=== PATIENT | female | born 1940 | race Caucasian/White ===

== ENCOUNTER 2019-01-24 10:01 | Emergency (ER) | payer MEDICARE ==
--- NOTE | 2019-01-24 10:25 | EDM.PDOC ---
ED HPI GENERAL MEDICAL PROBLEM - General Chief Complaint: Headache Stated Complaint: NAUESEA,HEADACH,HIGH B/P Time Seen by Provider: 01/24/19 10:05 Source of Information: Reports: Patient, Other (Information received from [facility] from patient visit to yesterday) History Limitations: Reports: Other (Patient is a somewhat poor historian. This improved significantly after treatment later on in the emergency department stay.) - History of Present Illness INITIAL COMMENTS - FREE TEXT/NARRATIVE: 78-year-old female who reports that she awoke approximately 8 AM today and then beginning at approximately 9 AM she developed a dull headache over her right forehead that was associated with nausea and she had diarrhea 2 at that time. The headache has gradually gotten worse and now is rated by her as a 6/10. She' s had nausea but no vomiting. She's had no fevers or chills. She apparently was seen by her doctor at [facility] in [place] 01/22/2019 for headache and memory problems and was found to have elevated blood pressure was told to take 2 of her blood pressure medications. She has had no localized area weakness. There was no blood in her stool. She initially denied any abdominal pain but with palpation she does have some diffuse abdominal discomfort that seems to be more nausea discomfort with palpation than anything else. Her vision is okay. There are no other associated signs or symptoms. There are no other modifying factors. 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: Reports: Other (see below) (Nothing) Frontal Head Pain Score (Numeric/FACES): 6 - Related Data Allergies Allergy/AdvReac Type Severity Reaction Status Date / Time amitriptyline Allergy Cannot Verified 10/28/14 12:51 Remember codeine Allergy Cannot Verified 10/28/14 12:51 Remember tetracycline Allergy Cannot Verified 10/28/14 15:22 Remember Home Meds: Home Meds metFORMIN [Glucophage] 500 mg PO BID 10/28/14 [History] .Ozempic 01/24/19 [History] Aspirin 81 mg PO DAILY 01/24/19 [History] Benazepril [Lotensin] 40 mg PO DAILY 01/24/19 [History] Cholecalciferol (Vitamin D3) [Vitamin D3] 25 mcg PO DAILY 01/24/19 [History] Citalopram Hydrobromide [Celexa] 40 mg PO DAILY 01/24/19 [History] Clopidogrel Bisulfate [Clopidogrel] 75 mg PO DAILY 01/24/19 [History] Ibandronate Sodium 150 mg PO DAILY 01/24/19 [History] Montelukast Sodium 10 mg PO BEDTIME 01/24/19 [History] Pantoprazole 20 mg PO DAILY 01/24/19 [History] Prochlorperazine Maleate [Compazine] 5 mg PO Q6H PRN #12 tablet 01/24/19 [Rx] atorvaSTATin Calcium [Atorvastatin Calcium] 40 mg PO DAILY 01/24/19 [History] hydroCHLOROthiazide [Hydrochlorothiazide] 50 mg PO DAILY 01/24/19 [History] predniSONE 20 mg PO DAILY 01/24/19 [History] Past Medical History HEENT History: Reports: Impaired Vision Cardiovascular History: Reports: High Cholesterol, Hypertension Gastrointestinal History: Reports: Gastritis, GERD Neurological History: Reports: CVA Endocrine/Metabolic History: Reports: Diabetes, Type II - Past Surgical History Head Surgeries/Procedures: Reports: Other (See Below) (Temporal artery biopsy on right that was negative.) Cardiovascular Surgical History: Reports: Other (See Below) (Cardiac catheterization that was apparently negative.) Social & Family History - Tobacco Use Smoking Status *Q: Never Smoker - Alcohol Use Alcohol Use History: No - Living Situation & Occupation Living situation: Reports: Alone Occupation: Retired ED ROS GENERAL - Review of Systems Review Of Systems: See Below Constitutional: Reports: Malaise HEENT: Reports: No Symptoms Respiratory: Reports: No Symptoms Cardiovascular: Reports: No Symptoms Endocrine: Reports: No Symptoms GI/Abdominal: Reports: Abdominal Pain, Diarrhea, Nausea : Reports: No Symptoms Musculoskeletal: Reports: No Symptoms Skin: Reports: No Symptoms Neurological: Reports: Headache Hematologic/Lymphatic: Reports: No Symptoms Immunologic: Reports: No Symptoms ED EXAM, GENERAL - Physical Exam Exam: See Below Exam Limited By: No Limitations General Appearance: Alert, Moderate Distress, Obese Eye Exam: Bilateral Eye: EOMI, Normal Inspection, PERRL Ears: Normal External Exam Ear Exam: Bilateral Ear: Auricle Normal Nose: Normal Inspection, Normal Mucosa, No Blood Throat/Mouth: Normal Voice, No Airway Compromise, Other (Somewhat dry mucous membranes) Head: Atraumatic, Normocephalic Neck: Normal Inspection, Supple, Non-Tender, Full Range of Motion Respiratory/Chest: No Respiratory Distress, Lungs Clear, Normal Breath Sounds, No Accessory Muscle Use, Chest Non-Tender Cardiovascular: Normal Peripheral Pulses, Regular Rate, Rhythm, No Murmur Peripheral Pulses: 2+: Radial (L), Radial (R) GI/Abdominal: Normal Bowel Sounds, Soft, No Mass, Tender (Mild diffuse tenderness) Back Exam: Normal Inspection Extremities: Normal Inspection, Normal Range of Motion, Non-Tender, No Pedal Edema, Normal Capillary Refill Neurological: Alert, Oriented, CN II-XII Intact, No Motor/Sensory Deficits Skin Exam: Warm, Dry, Intact, Normal Color, No Rash Course - Vital Signs Last Recorded V/S: Last Vital Signs Temp 36.8 C 01/24/19 10:01 Pulse 67 01/24/19 11:13 Resp 18 01/24/19 11:13 BP 129/62 01/24/19 11:13 Pulse Ox 99 01/24/19 11:13 - Orders/Labs/Meds Orders: Active Orders 24 hr Category Date Time Status Sodium Chloride 0.9% [Saline Flush] Med 01/24/19 10:26 Active 10 ml FLUSH ASDIRECTED PRN Peripheral IV Insertion Adult [OM.PC] Routine Oth 01/24/19 10:26 Ordered Medication Orders Sodium Chloride (Saline Flush) 10 ml FLUSH ASDIRECTED PRN PRN Reason: Keep Vein Open Last Admin: 01/24/19 12:53 Dose: 10 ml Admin: 01/24/19 10:51 Dose: 10 ml Labs: Laboratory Tests 01/24/19 01/24/19 01/24/19 Range/Units 10:40 10:40 10:40 WBC 8.2 (4.5-12.0) X10-3/uL RBC 4.44 (3.23-5.20) x10(6)uL Hgb 12.6 (11.5-15.5) g/dL Hct 36.7 (30.0-51.3) % MCV 82.6 (80-96) fL MCH 28.3 (27.7-33.6) pg MCHC 34.3 (32.2-35.4) g/dL RDW 12.3 (11.5-15.5) % Plt Count 204 (125-369) X10(3)uL MPV 9.4 (7.4-10.4) fL Neut % (Auto) 76.7 (46-82) % Lymph % (Auto) 15.3 (13-37) % [place] % (Auto) 5.5 (4-12) % Eos % (Auto) 2 (1.0-5.0) % Baso % (Auto) 0 (0-2) % Neut # (Auto) 6.2 (1.6-8.3) # Lymph # (Auto) 1.3 (0.6-5.0) # Liberty # (Auto) 0.5 (0.0-1.3) # Eos # (Auto) 0.2 (0.0-0.8) # Baso # (Auto) 0.0 (0.0-0.2) # ESR 11 (0-20) mm/hr Sodium 136 (135-145) mmol/L Potassium 3.5 (3.5-5.3) mmol/L Chloride 99 L (100-110) mmol/L Carbon Dioxide 25 (21-32) mmol/L BUN 12 (7-18) mg/dL Creatinine 1.0 (0.55-1.02) mg/dL Est Cr Clr Drug Dosing 36.98 mL/min Estimated GFR (MDRD) 54 L (>60) BUN/Creatinine Ratio 12.0 (9-20) Glucose 156 H (80-116) mg/dL Calcium 9.1 (8.6-10.2) mg/dL Magnesium 1.5 L (1.8-2.5) mg/dL Total Bilirubin 0.4 (0.1-1.3) mg/dL AST 25 (5-25) IU/L ALT 37 H (12-36) U/L Alkaline Phosphatase 108 (56-112) IU/L C-Reactive Protein < 0.2 L (0.5-0.9) mg/dL Total Protein 7.0 (6.0-8.0) g/dL Albumin 3.6 (3.2-4.6) g/dL Globulin 3.4 g/dL Albumin/Globulin Ratio 1.1 Amylase 61 (25-115) U/L Urine Color (YELLOW) Urine Appearance (CLEAR) Urine pH (5.0-6.5) Ur Specific [place] (1.010-1.025) Urine Protein (NEGATIVE) mg/dL Urine Glucose (UA) (NORMAL) mg/dL Urine Ketones (NEGATIVE) mg/dL Urine Occult Blood (NEGATIVE) Urine Nitrite (NEGATIVE) Urine Bilirubin (NEGATIVE) Urine Urobilinogen (NEGATIVE) mg/dL Ur Leukocyte Esterase (NEGATIVE) Urine RBC (0-5) Urine WBC (0-5) Ur Epithelial Cells Urine Bacteria (NS) 01/24/19 Range/Units 12:45 WBC (4.5-12.0) X10-3/uL RBC (3.23-5.20) x10(6)uL Hgb (11.5-15.5) g/dL Hct (30.0-51.3) % MCV (80-96) fL MCH (27.7-33.6) pg MCHC (32.2-35.4) g/dL RDW (11.5-15.5) % Plt Count (125-369) X10(3)uL MPV (7.4-10.4) fL Neut % (Auto) (46-82) % Lymph % (Auto) (13-37) % [place] % (Auto) (4-12) % Eos % (Auto) (1.0-5.0) % Baso % (Auto) (0-2) % Neut # (Auto) (1.6-8.3) # Lymph # (Auto) (0.6-5.0) # [place] # (Auto) (0.0-1.3) # Eos # (Auto) (0.0-0.8) # Baso # (Auto) (0.0-0.2) # ESR (0-20) mm/hr Sodium (135-145) mmol/L Potassium (3.5-5.3) mmol/L Chloride (100-110) mmol/L Carbon Dioxide (21-32) mmol/L BUN (7-18) mg/dL Creatinine (0.55-1.02) mg/dL Est Cr Clr Drug Dosing mL/min Estimated GFR (MDRD) (>60) BUN/Creatinine Ratio (9-20) Glucose (80-116) mg/dL Calcium (8.6-10.2) mg/dL Magnesium (1.8-2.5) mg/dL Total Bilirubin (0.1-1.3) mg/dL AST (5-25) IU/L ALT (12-36) U/L Alkaline Phosphatase (56-112) IU/L C-Reactive Protein (0.5-0.9) mg/dL Total Protein (6.0-8.0) g/dL Albumin (3.2-4.6) g/dL Globulin g/dL Albumin/Globulin Ratio Amylase (25-115) U/L Urine Color Yellow (YELLOW) Urine Appearance Clear (CLEAR) Urine pH 6.0 (5.0-6.5) Ur Specific [place] 1.020 (1.010-1.025) Urine Protein 30 H (NEGATIVE) mg/dL Urine Glucose (UA) Normal (NORMAL) mg/dL Urine Ketones Trace (NEGATIVE) mg/dL Urine Occult Blood Small (NEGATIVE) Urine Nitrite Negative (NEGATIVE) Urine Bilirubin Negative (NEGATIVE) Urine Urobilinogen 0.2 (NEGATIVE) mg/dL Ur Leukocyte Esterase Negative (NEGATIVE) Urine RBC Not seen (0-5) Urine WBC 0-5 (0-5) Ur Epithelial Cells Rare Urine Bacteria Rare H (NS) Meds: Medications Generic Name Dose Route Start Last Admin Trade Name Frejulianne PRN Reason Stop Dose Admin Sodium Chloride 10 ml 01/24/19 10:26 01/24/19 12:53 Saline Flush FLUSH 10 ml ASDIRECTED PRN Administration Keep Vein Open Discontinued Medications Generic Name Dose Route Start Last Admin Trade Name Lashonda PRN Reason Stop Dose Admin Sodium Chloride 1,000 mls @ 999 mls/hr 01/24/19 10:28 01/24/19 10:50 Normal Saline IV 01/24/19 11:28 999 mls/hr .BOLUS ONE Administration Magnesium Sulfate 2 gm/ Premix 50 mls @ 150 mls/hr 01/24/19 11:40 01/24/19 12 :05 IV 01/24/19 11:59 55 mls/hr ONETIME ONE Infusion Ketorolac Tromethamine 30 mg 01/24/19 11:22 01/24/19 11:28 Toradol IVPUSH 01/24/19 11:23 30 mg ONETIME ONE Administration Metoclopramide HCl 10 mg 01/24/19 10:28 01/24/19 10:50 Reglan IVPUSH 01/24/19 10:29 10 mg ONETIME ONE Administration - Radiology Interpretation Free Text/Narrative:: CT scan of head without contrast showed white matter changes that were chronic but no acute pathology per Dr. Greenwood. - Re-Assessments/Exams Free Text/Narrative Re-Assessment/Exam: 01/24/19 12:15: The patient has received normal saline 1 L as a bolus. She also received Reglan 10 mg IV and initially. She was feeling improved after this with resolution of her nausea but still had headache. The CT scan of her head showed no acute abnormality at this point the patient was given Toradol 30 mg IV. Now her headache is essentially gone and she feels much improved. Her blood tests were reassuringly normal. The CT of her head showed no acute abnormality. I will discuss the patient's case with her primary provider, Dr. Sweet, as she saw the patient on 01/22/2019. 01/24/19 13:00: I discussed the patient's case with Dr. Sweet. Dr. Sweet has arranged for the patient to follow-up with neuropsychology and neurology and has an MRI of the patient's brain. The patient is neurologically and vitally stable at this point. Her repeat blood pressure was 129/62. Her symptoms have essentially resolved. She has provided us with a urine and I am waiting on the results of this. Plan will be to discharge the patient with her current workup/ follow-up as scheduled per her primary provider. 01/24/19 13:34: Urinalysis was negative. Her magnesium was low and we did replace that with 2 g IV. The patient feels much improved and is felt to be stable for discharge at this point. Her primary doctor is going to try to facilitate the patient's follow-up appointments with ophthalmology, neuropsychiatry, neurology and for her MRI. She will also have the patient scheduled for follow-up with her, Dr. Sweet, in 1-2 weeks. Departure - Departure Time of Disposition: 13:40 Disposition: Home, Self-Care 01 Condition: Good (Improved) Clinical Impression: Nausea, Hypomagnesemia Headache Qualifiers: Headache type: other headache syndrome Qualified Code(s): G44.89 - Other headache syndrome - Discharge Information Prescriptions: Prochlorperazine Maleate [Compazine] 5 mg PO Q6H PRN #12 tablet PRN Reason: Nausea or headache Instructions: Hypomagnesemia, Nausea, Adult, [id number], General Headache Without Cause, [id number] Referrals: PCP,Not In Area [Primary Care Provider] - Forms: ED Department Discharge Additional Instructions: Your blood tests were reassuringly normal. The CT scan of your head showed no acute abnormality. You improved significantly with IV fluids and nausea medicine with pain medication. This could have been a migraine headache. It could also be related to your recent memory issues. I discussed your case with your primary doctor and she has referred you to several specialist. She is going to facilitate the appointments to see the specialist and also to make sure that the MRI of your brain has been scheduled as well. You should call her office to try to make sure all these appointments are arranged and to get the times of these appointments. You should rest. You should drink plenty of fluids. Medication as prescribed (Compazine 5 mg). You may take this medication for nausea and also for recurrent headaches. Back to the emergency department for recurrent severe headache, vomiting, further memory lapses or confusion, fever or any other concerning sign or symptom. - My Orders Last 24 Hours: My Active Orders 01/24/19 10:26 Sodium Chloride 0.9% [Saline Flush] 10 ml FLUSH ASDIRECTED PRN Peripheral IV Insertion Adult [OM.PC] Routine - Assessment/Plan Last 24 Hours: My Active Orders 01/24/19 10:26 Sodium Chloride 0.9% [Saline Flush] 10 ml FLUSH ASDIRECTED PRN Peripheral IV Insertion Adult [OM.PC] Routine
[2019-01-24] MEDS ORDERED: Metoclopramide 10 MG/2 ML SDV IVPUSH ONE (10:28)
[2019-01-24] MEDS ORDERED: Sodium Chloride 0.9% 1,000 ML IV ONE (10:28)
[2019-01-24] MEDS: Sodium Chloride 0.9% 10 ML Syringe FLUSH PRN ×2 (10:51→12:53)
[2019-01-24] MEDS ORDERED: Ketorolac 30 MG/ML SDV IVPUSH ONE (11:22)
[2019-01-24] MEDS ORDERED: Magnesium Sulfate/Water 2 GM in Premix Bag 1 BAG IV ONE (11:40)
--- NOTE | 2019-01-24 11:42 | CT ---
INDICATION: Patient complains of frontal headaches, severe times two hours. CT HEAD WITHOUT CONTRAST: Spiral 3.75 mm axial sections were obtained through the brain without contrast with sagittal and coronal reconstructions, 01/24/19, and compared with 10/28/14. Total exam DLP = 1,141.91 mGy-cm. Arterial calcifications are noted in the internal carotid arteries and especially the vertebral arteries. There appears to be increased patchy decreased density in the white matter, compatible with mild microvascular disease that is progressive. No shift of midline structures or ventricular abnormalities were identified. No lacunar infarct is seen on the current study. No bleeding site or hematoma was noted. Orbits appear to be intact. Visualized paranasal sinuses and mastoid air cells were well-aerated. No cranial abnormality was suggested. IMPRESSION: 1. No acute intracranial abnormality. 2. Cerebrovascular disease with minimal microvascular disease type changes in the white matter, although other cause of leukoencephalopathy cannot be excluded. If symptoms persist - if occult abnormality is suspected clinically, re- examination with IV contrast by CT and/or MRI is recommended. Report was called to Dr. Hammond at 1118 hours on 01/24/19. MIKE
[2019-01-24 12:05] VITALS: BP 129/62; PULSE 67
== END 2019-01-24 13:50 | disposition home or self-care (01) ==
LOC: FB.ED 10:01
DX: G44.89 Other headache syndrome (principal); E83.42 Hypomagnesemia; I10 Essential (primary) hypertension; E11.9 Type 2 diabetes mellitus without complications; K21.9 Gastro-esophageal reflux disease without esophagitis; E78.00 Pure hypercholesterolemia, unspecified; Z86.73 Personal history of transient ischemic attack (TIA), and cerebral infarction without residual deficits; Z88.5 Allergy status to narcotic agent; Z88.8 Allergy status to other drugs, medicaments and biological substances; Z88.1 Allergy status to other antibiotic agents; Z79.82 Long term (current) use of aspirin; Z79.899 Other long term (current) drug therapy; Z79.84 Long term (current) use of oral hypoglycemic drugs
CPT/HCPCS: 36415; 70450; 80053; 81001; 82150; 83735; 85025; 85651; 86140; 96361; 96365; 96375; 99284; J1885; J2765; J3475; J7030

== ENCOUNTER 2019-03-05 08:47 | Inpatient (IN) | payer MEDICARE ==
[2019-03-05] MEDS ORDERED: Enoxaparin 40 MG/0.4 ML Syringe SUBCUT SCH (13:30)
[2019-03-05] MEDS: oxyCODONE 5 MG Tab PO PRN ×2 (14:15→21:57)
[2019-03-05] MEDS: Acetaminophen 500 MG Tab PO SCH ×2 (15:10→20:49)
--- NOTE | 2019-03-05 15:27 | PCM.HP.2 ---
H&P History of Present Illness - General Date of Service: 03/05/19 Admit Problem/Dx: Admission Diagnosis/Problem Admission Diagnosis/Problem Rehabilitation therapy Source of Information: Patient, Old Records, Provider - History of Present Illness Initial Comments - Free Text/Narative: Patient sustained a fall at home last Sunday had right humeral and hip fractures. Was sent to [facility], had a hemiarthroplasty on the right hip but they did non-operative treatment for her right humeral fracture. She was placed in a sling, non-weightbearing on right arm. She is weight bearing on her legs. She is POD#5, hemoglobin was 8.8 this morning in [place]. She had post-op complication of acute blood loss anemia, dropped to 6.9, received 2 units of PRBCs and has been stable in high 8/low 9 since transfusion. She will be on Lovenox 40 mg q24h for 4 weeks postoperative for DVT prophylaxis with bilateral knee high TEDs. Neurology was consulted during her acute stay in [place] due to her history of stroke 4 years ago and was on Aspirin and Plavix for it. Neurology recommended stopping Plavix and restarting her Aspirin 325 mg daily on SundayMar 10. She is on acetaminophen and Oxycodone for pain. MiraLAX for bowel regiment. She had low blood pressure and hyponatremia in [place], hypertension medications(ACEI & HCTZ) were held and were restarted today as her pressures came up to 160s. She had her dressing changed in [place] with Mepilex dressing left on for 7 days then change to dry dressings. She follows up with Ortho on Mar 26 at 1030am. Follow up with her PCP Dr Mckay at [facility] on Mar 19 at 230 pm. She has lab/rad only appts on Mar 14 at 1 & 130 pm at [facility] clinic. She is Diabetic type 2 on oral medications, also Lactose intolerant. - Related Data Allergies/Adverse Reactions: Allergies Allergy/AdvReac Type Severity Reaction Status Date / Time amitriptyline Allergy Cannot Verified 03/05/19 15:30 Remember codeine Allergy Cannot Verified 03/05/19 15:30 Remember tetracycline Allergy Cannot Verified 03/05/19 15:30 Remember Home Medications: Home Meds metFORMIN [Glucophage] 500 mg PO BIDMEALS 10/28/14 [History] .Ozempic 0.5 mg SUBCUT [place]@21 01/24/19 [History] Benazepril [Lotensin] 40 mg PO DAILY 01/24/19 [History] Cholecalciferol (Vitamin D3) [Vitamin D3] 25 mcg PO DAILY 01/24/19 [History] Citalopram Hydrobromide [Celexa] 40 mg PO BEDTIME 01/24/19 [History] Ibandronate Sodium 150 mg PO Q30D 01/24/19 [History] Montelukast Sodium 10 mg PO BEDTIME 01/24/19 [History] Pantoprazole 20 mg PO DAILY 01/24/19 [History] atorvaSTATin Calcium [Atorvastatin Calcium] 40 mg PO DAILY 01/24/19 [History] hydroCHLOROthiazide [Hydrochlorothiazide] 50 mg PO DAILY 01/24/19 [History] Acetaminophen 325 mg PO Q6H PRN 03/05/19 [History] Acetaminophen 500 mg PO TID 03/05/19 [History] Ascorbate Calcium [Vitamin C] 1,000 mg PO DAILY 03/05/19 [History] Aspirin [Aspirin EC] 325 mg PO DAILY 03/05/19 [History] Calcium Carbonate [Calcium] 500 mg PO TID 03/05/19 [History] Desonide 1 applic TOP BID 03/05/19 [History] Enoxaparin [Lovenox] 40 mg SUBCUT Q24H 03/05/19 [History] Hydrocortisone [Hydrocortisone 2.5% Crm] 1 applic TOP BID 03/05/19 [History] Magnesium Oxide 400 mg PO BIDMEALS 03/05/19 [History] Multivitamins,Therapeutic [Thera] 1 tab PO DAILY 03/05/19 [History] Polyethylene Glycol 3350 [MiraLAX] 17 gm PO DAILY 03/05/19 [History] Triamcinolone Acetonide [Nasacort] 2 sprays NASBOTH DAILY 03/05/19 [History] Zinc Gluconate [Zinc] 50 mg PO DAILY 03/05/19 [History] buPROPion [buPROPion XL] 150 mg PO DAILY 03/05/19 [History] oxyCODONE 5 mg PO Q8H PRN 03/05/19 [History] Past Medical History HEENT History: Reports: Impaired Vision Cardiovascular History: Reports: High Cholesterol, Hypertension, SOB on Exertion Respiratory History: Reports: SOB Gastrointestinal History: Reports: Gastritis, GERD, Other (See Below) Other Gastrointestinal History: Lactose intolerant FISHER TERRAPIN History: Reports: Musculoskeletal History: Reports: Back Pain, Chronic, Fracture Neurological History: Reports: CVA Psychiatric History: Reports: Anxiety, Depression, Other (See Below) Other Psychiatric History: MENTAL HEALTH ISSUES. Endocrine/Metabolic History: Reports: Diabetes, Type II Hematologic History: Reports: Blood Transfusion(s) Dermatologic History: Reports: Other (See Below) Other Dermatologic History: RASH AND C\O OF SOME ITCHING AT TIMES WITH A RASH. - Infectious Disease History Infectious Disease History: Reports: Chicken Pox, Shingles - Past Surgical History Head Surgeries/Procedures: Reports: Other (See Below) HEENT Surgical History: Reports: None Cardiovascular Surgical History: Reports: None Respiratory Surgical History: Reports: None GI Surgical History: Reports: Colonoscopy Endocrine Surgical History: Reports: None Neurological Surgical History: Reports: Other (See Below) Other Neurological Surgeries/Procedures: PT HAD SURGERY ON RIGHT SIDE OF FACE IN FRONT OF HER EAR IN PAST. Musculoskeletal Surgical History: Reports: Hip Replacement, Other (See Below) Other Musculoskeletal Surgeries/Procedures:: FRACTURED HUMERUS CURRENTLY AND S\ P RIGHT HIP REPLACEMENT ON 02/28/2019 ON HIP Dermatological Surgical History: Reports: None - Past Imaging History Past Imaging History: Reports: Cardiac Echo (10/04/2018) Social & Family History - Family History Family Medical History: Noncontributory Cardiac: Reports: CAD (mom, brothers x 3), RI (Mom, Maternal grandfather) Other OBGYN Family History: Breast cancer: Paternal aunt Neurological: Reports: CVA (dad, mom) Psychiatric: Reports: Other (See Below) (Addictions: daughter, son) - Tobacco Use Smoking Status *Q: Former Smoker - Caffeine Use Caffeine Use: Reports: None - Alcohol Use Alcohol Use History: No - Recreational Drug Use Recreational Drug Use: No - Living Situation & Occupation Living situation: Reports: Alone Occupation: Retired H&P Review of Systems - Review of Systems: Review Of Systems: See Below General: Reports: No Symptoms HEENT: Reports: No Symptoms Pulmonary: Reports: No Symptoms Cardiovascular: Reports: No Symptoms Gastrointestinal: Reports: No Symptoms Genitourinary: Reports: No Symptoms Musculoskeletal: Reports: Shoulder Pain, Leg Pain Skin: Reports: Bruising (left arm, right shoulder covered with ice pack, in sling), Wound (right hip) Psychiatric: Reports: No Symptoms Neurological: Reports: No Symptoms Hematologic/Lymphatic: Reports: Anemia Exam - Exam Exam: See Below - Vital Signs Weight: 69.173 kg - Exam General: Alert, Oriented, Cooperative, Mild Distress (pain) HEENT: PERRLA, Hearing Intact, Mucosa Moist & [place], Nares Patent, Normal Nasal Septum, Posterior Pharynx Clear, Conjunctiva Clear, EOMI, EACs Clear, TMs Clear Neck: Supple, Trachea Midline, 2 Lungs: Clear to Auscultation, Normal Respiratory Effort Cardiovascular: Regular Rate, Regular Rhythm GI/Abdominal Exam: Normal Bowel Sounds, Soft, Non-Tender, No Distention Extremities: No Pedal Edema Peripheral Pulses: 2+: Radial (L), Radial (R), Posterior Tibial (L), Posterior Tibial (R), Dorsalis Pedis (L), Dorsalis Pedis (R) Skin: Warm, Dry, Wound (right hip covered by Mepilex dressing) Psychiatric: Alert, Normal Affect, Normal Mood - Problem List (1) Right humeral fracture SNOMED Code(s): 01209635 ICD Code: S42.301A - UNSP FRACTURE OF SHAFT OF HUMERUS, RIGHT ARM, INIT Status: Acute Current Visit: Yes (2) S/P hip hemiarthroplasty SNOMED Code(s): 269303296, 777476612, 675485789, 983202390 ICD Code: Z96.649 - PRESENCE OF UNSPECIFIED ARTIFICIAL HIP JOINT Status: Acute Current Visit: Yes Onset Date: ~02/28/19 (3) Hip fracture, right SNOMED Code(s): 870812303 ICD Code: S72.001A - FRACTURE OF UNSP PART OF NECK OF RIGHT FEMUR, INIT Status: Acute Current Visit: Yes (4) Hypertension SNOMED Code(s): 57477179 ICD Code: I10 - ESSENTIAL (PRIMARY) HYPERTENSION Status: Acute Current Visit: Yes Qualifiers: Hypertension type: essential hypertension Qualified Code(s): I10 - Essential (primary) hypertension (5) GERD (gastroesophageal reflux disease) SNOMED Code(s): 046817293 ICD Code: K21.9 - GASTRO-ESOPHAGEAL REFLUX DISEASE WITHOUT ESOPHAGITIS Status: Acute Current Visit: Yes Qualifiers: Esophagitis presence: esophagitis presence not specified Qualified Code(s) : K21.9 - Gastro-esophageal reflux disease without esophagitis (6) Diabetes SNOMED Code(s): 75714110 ICD Code: E11.9 - TYPE 2 DIABETES MELLITUS WITHOUT COMPLICATIONS Status: Acute Current Visit: Yes Qualifiers: Diabetes mellitus type: type 2 Diabetes mellitus terminal press operator insulin use: without halfway use Diabetes mellitus complication status: without complication Qualified Code(s): E11.9 - Type 2 diabetes mellitus without complications (7) History of CVA (cerebrovascular accident) SNOMED Code(s): 214350773 ICD Code: Z86.73 - PRSNL HX OF TIA (TIA), AND CEREB INFRC W/O RESID DEFICITS Status: Acute Current Visit: Yes Onset Date: Problem List Initiated/Reviewed/Updated: Yes Orders Last 24hrs: Active Orders 24 hr Category Date Time Status Patient Status [ADT] Routine ADT 03/05/19 13:29 Active Antiembolic Devices [RC] .Routine Care 03/05/19 13:29 Active Blood Glucose Check, Bedside [RC] BIDMEALS Care 03/05/19 13:29 Active Communication Order [RC] ASDIRECTED Care 03/05/19 13:46 Active Height and Weight [RC] WE Care 03/05/19 13:29 Active Oxygen Therapy [RC] PRN Care 03/05/19 13:29 Active Up With Assistance [RC] ASDIRECTED Care 03/05/19 13:29 Active VTE/DVT Education [RC] Per Unit Routine Care 03/05/19 13:29 Active Vital Signs [RC] PER UNIT ROUTINE Care 03/05/19 13:29 Active Wound Care [RC] DAILY Care 03/05/19 13:34 Active Consult to Case Management/Senior Technical Specialist [CONS] Cons 03/05/19 13:40 Active Routine OT Evaluation and Treatment [CONS] Routine Cons 03/05/19 13:29 Active PT Evaluation and Treatment [CONS] Routine Cons 03/05/19 13:29 Active Consistent Carbohydrate Diet [DIET] Diet 03/05/19 Lunch Active .Ozempic Med 03/09/19 21:00 Pending 0.5 mg SUBCUT [place]@2100 Acetaminophen [Tylenol Extra Strength] Med 03/05/19 14:00 Active 500 mg PO TID Acetaminophen [Tylenol] Med 03/05/19 13:36 Active 325 mg PO Q6H PRN Ascorbic Acid [Vitamin C] Med 03/06/19 09:00 Active 1,000 mg PO DAILY Aspirin [Ecotrin] Med 03/10/19 09:00 Active 325 mg PO DAILY Benazepril [Lotensin] Med 03/06/19 09:00 Active 40 mg PO DAILY Cholecalciferol (Vitamin D3) [Vitamin D3] Med 03/06/19 09:00 Active 25 mcg PO DAILY Citalopram [Celexa] Med 03/05/19 21:00 Active 40 mg PO BEDTIME Desonide Med 03/05/19 21:00 Active 0 gm TOP BID Enoxaparin [Lovenox] Med 03/05/19 16:00 Active 40 mg SUBCUT Q24H Fluticasone Propionate [Flonase] Med 03/06/19 09:00 Active 0 gm NASBOTH DAILY Hydrocortisone [Hydrocortisone 2.5% Crm] Med 03/05/19 21:00 Active 0 gm TOP BID Ibandronate [Boniva] Med 03/18/19 06:00 Active 150 mg PO Q30D Magnesium Oxide Med 03/05/19 18:00 Active 400 mg PO BIDMEALS Montelukast [Singulair] Med 03/05/19 21:00 Active 10 mg PO BEDTIME Multivitamins,Therapeutic [Thera] Med 03/06/19 09:00 Active 1 each PO DAILY Pantoprazole Med 03/06/19 06:00 Active 20 mg PO 0600 Polyethylene Glycol 3350 [MiraLAX] Med 03/06/19 09:00 Active 17 gm PO DAILY Zinc Sulfate [Zincate] Med 03/06/19 09:00 Active 220 mg PO DAILY atorvaSTATin [Lipitor] Med 03/06/19 09:00 Active 40 mg PO DAILY buPROPion [Wellbutrin XL] Med 03/06/19 09:00 Active 150 mg PO DAILY hydroCHLOROthiazide Med 03/06/19 09:00 Active 50 mg PO DAILY metFORMIN [Glucophage] Med 03/05/19 18:00 Active 500 mg PO BIDMEALS oxyCODONE Med 03/05/19 13:36 Active 5 mg PO Q8H PRN Antiembolic Hose [OM.PC] Per Unit Routine Oth 03/05/19 13:31 Ordered Resuscitation Status Routine Resus Stat 03/05/19 13:29 Ordered Medication Orders Acetaminophen (Tylenol) 325 mg PO Q6H PRN PRN Reason: Pain/Fever Acetaminophen (Tylenol Extra Strength) 500 mg PO TID [facility] Last Admin: 03/05/19 15:10 Dose: 500 mg Ascorbic Acid (Vitamin C) 1,000 mg PO DAILY [facility] Aspirin (Ecotrin) 325 mg PO DAILY [facility] Atorvastatin Calcium (Lipitor) 40 mg PO DAILY [facility] Benazepril HCl (Lotensin) 40 mg PO DAILY [facility] Bupropion HCl (Wellbutrin Xl) 150 mg PO DAILY [facility] Cholecalciferol (Vitamin D3) 25 mcg PO DAILY [facility] Citalopram Hydrobromide (Celexa) 40 mg PO BEDTIME [facility] Desonide (Desonide) 0 gm TOP BID [facility] Enoxaparin Sodium (Lovenox) 40 mg SUBCUT Q24H [facility] Fluticasone Propionate (Flonase) 0 gm NASBOTH DAILY [facility] Hydrochlorothiazide (Hydrochlorothiazide) 50 mg PO DAILY [facility] Hydrocortisone (Hydrocortisone 2.5% Crm) 0 gm TOP BID [facility] Ibandronate Sodium (Boniva) 150 mg PO Q30D [facility] Magnesium Oxide (Magnesium Oxide) 400 mg PO BIDMEALS [facility] Metformin HCl (Glucophage) 500 mg PO BIDMEALS [facility] Montelukast Sodium (Singulair) 10 mg PO BEDTIME [facility] Multivitamins (Thera) 1 each PO DAILY [facility] Non-Formulary Medication (.Ozempic) 0.5 mg SUBCUT [place]@2100 [facility] Oxycodone HCl (Oxycodone) 5 mg PO Q8H PRN PRN Reason: Pain Last Admin: 03/05/19 14:15 Dose: 5 mg Pantoprazole Sodium (Pantoprazole) 20 mg PO 0600 [facility] Polyethylene Glycol (Miralax) 17 gm PO DAILY [facility] Zinc Sulfate (Zincate) 220 mg PO DAILY [facility] Assessment/Plan Comment:: 1. Admit to Swing Bed for rehab services: PT/OT consulted. 2. POD#5 from right hemiarthroplasty: weightbearing, Mepilex dressing changed today, change in 7 days with dry dressings. 3. Right humeral fracture: sling, non-weightbearing, Repeat x-ray in 3 weeks Mar 26 at 1030am in [place]. 4. DVT prophylaxis: Lovenox 40 mg SQ q24h for 4 weeks. Restart Aspirin 325 mg on SundayMar 10 per Neurology. 5. Consistent carb diet, BID glucose checks. 6. Hypertension: meds restarted today, monitor for hyponatremia and adjust as needed. 7. Pain control: acetaminophen 650 mg po q4h as needed and Oxycodone 5 mg po q8h as needed 8. Upcoming appointment: lab/rad only Mar 14 at 1 & 130 pm, Dr Mckay Mar 19 at 230pm, MELANIE Bartholomew on Mar 26 at 1030am. - Mortality Measure Prognosis:: Good
[2019-03-05] MEDS: Enoxaparin 40 MG/0.4 ML Syringe SUBCUT SCH (16:11)
[2019-03-05] MEDS: Magnesium Oxide 400 MG Tab PO SCH (17:10)
[2019-03-05] MEDS: metFORMIN 500 MG Tab PO SCH (17:10)
[2019-03-05] MEDS: Calcium Carbonate 500 MG Tablet PO SCH (17:42)
[2019-03-05] MEDS: Citalopram 20 MG Tab PO SCH (20:49)
[2019-03-05] MEDS: Montelukast 10 MG Tab PO SCH (20:50)
[2019-03-05] MEDS: Hydrocortisone 2.5% Crm 30 GM Tube TOP SCH (20:56)
[2019-03-06] MEDS: Acetaminophen 325 MG Tab PO PRN ×2 (00:47→08:59)
[2019-03-06] MEDS: Pantoprazole 20 MG Tab, Delayed Release PO SCH (06:35)
[2019-03-06] MEDS: oxyCODONE 5 MG Tab PO PRN ×3 (06:35→18:23)
[2019-03-06] MEDS: Magnesium Oxide 400 MG Tab PO SCH ×2 (08:39→17:38)
[2019-03-06] MEDS: metFORMIN 500 MG Tab PO SCH ×2 (08:39→17:37)
[2019-03-06] MEDS: Calcium Carbonate 500 MG Tablet PO SCH ×3 (08:39→17:38)
[2019-03-06] MEDS: Hydrochlorothiazide 25 MG Tab PO SCH (08:42)
[2019-03-06] MEDS: Hydrocortisone 2.5% Crm 30 GM Tube TOP SCH ×2 (08:43→20:09)
[2019-03-06] MEDS: atorvaSTATin 40 MG Tab PO SCH (08:45)
[2019-03-06] MEDS: Polyethylene Glycol 3350 Powder 17 GM Packet PO SCH (08:47)
[2019-03-06] MEDS: Multivitamins,Therapeutic Tab PO SCH (08:48)
[2019-03-06] MEDS: Ascorbic Acid 500 MG Tab PO SCH (08:48)
[2019-03-06] MEDS: Acetaminophen 500 MG Tab PO SCH ×3 (08:48→20:10)
[2019-03-06] MEDS: buPROPion 150 MG Tab.ER PO SCH (08:49)
[2019-03-06] MEDS: Zinc Sulfate 220 MG Cap PO SCH (08:49)
[2019-03-06] MEDS: Cholecalciferol (Vitamin D3) 25 MCG Tab PO SCH (08:49)
[2019-03-06] MEDS ORDERED: Fluticasone Propionate Nasal Spray 16 GM Bottle NASBOTH SCH ×2 (09:00→23:30)
[2019-03-06] MEDS: Ondansetron 4 MG Tab.DIS PO PRN (15:00)
[2019-03-06] MEDS: Enoxaparin 40 MG/0.4 ML Syringe SUBCUT SCH (16:09)
[2019-03-06] MEDS ORDERED: Simethicone 80 MG Tab.Chew PO PRN (17:00)
[2019-03-06] MEDS: Montelukast 10 MG Tab PO SCH (20:10)
[2019-03-06] MEDS: Citalopram 20 MG Tab PO SCH (20:10)
[2019-03-07] MEDS: oxyCODONE 5 MG Tab PO PRN ×5 (02:05→23:54)
[2019-03-07] MEDS: Pantoprazole 20 MG Tab, Delayed Release PO SCH (05:37)
[2019-03-07] MEDS: metFORMIN 500 MG Tab PO SCH ×2 (08:48→17:54)
[2019-03-07] MEDS: Calcium Carbonate 500 MG Tablet PO SCH ×3 (08:48→17:54)
[2019-03-07] MEDS: Magnesium Oxide 400 MG Tab PO SCH ×2 (08:49→17:56)
[2019-03-07] MEDS: Fluticasone Propionate Nasal Spray 16 GM Bottle NASBOTH SCH ×2 (08:50→20:49)
[2019-03-07] MEDS: Hydrochlorothiazide 25 MG Tab PO SCH (08:52)
[2019-03-07] MEDS: Hydrocortisone 2.5% Crm 30 GM Tube TOP SCH ×2 (08:52→20:50)
[2019-03-07] MEDS: atorvaSTATin 40 MG Tab PO SCH (08:53)
[2019-03-07] MEDS: Acetaminophen 500 MG Tab PO SCH ×3 (08:54→20:51)
[2019-03-07] MEDS: Multivitamins,Therapeutic Tab PO SCH (08:54)
[2019-03-07] MEDS: Ascorbic Acid 500 MG Tab PO SCH (08:55)
[2019-03-07] MEDS: Cholecalciferol (Vitamin D3) 25 MCG Tab PO SCH (08:56)
[2019-03-07] MEDS: Zinc Sulfate 220 MG Cap PO SCH (08:56)
[2019-03-07] MEDS: buPROPion 150 MG Tab.ER PO SCH (08:56)
[2019-03-07] MEDS: Polyethylene Glycol 3350 Powder 17 GM Packet PO SCH (08:57)
[2019-03-07] MEDS: Ondansetron 4 MG Tab.DIS PO PRN (12:22)
[2019-03-07] MEDS: Enoxaparin 40 MG/0.4 ML Syringe SUBCUT SCH (16:57)
[2019-03-07] MEDS: Citalopram 20 MG Tab PO SCH (20:50)
[2019-03-07] MEDS: Montelukast 10 MG Tab PO SCH (20:50)
[2019-03-08] MEDS: Pantoprazole 20 MG Tab, Delayed Release PO SCH (06:56)
[2019-03-08] MEDS: buPROPion 150 MG Tab.ER PO SCH (08:17)
[2019-03-08] MEDS: Zinc Sulfate 220 MG Cap PO SCH (08:17)
[2019-03-08] MEDS: atorvaSTATin 40 MG Tab PO SCH (08:17)
[2019-03-08] MEDS: Cholecalciferol (Vitamin D3) 25 MCG Tab PO SCH (08:17)
[2019-03-08] MEDS: Multivitamins,Therapeutic Tab PO SCH (08:17)
[2019-03-08] MEDS: metFORMIN 500 MG Tab PO SCH ×2 (08:17→17:25)
[2019-03-08] MEDS: Calcium Carbonate 500 MG Tablet PO SCH ×3 (08:17→17:25)
[2019-03-08] MEDS: Acetaminophen 500 MG Tab PO SCH ×3 (08:17→20:48)
[2019-03-08] MEDS: Magnesium Oxide 400 MG Tab PO SCH ×2 (08:17→17:25)
[2019-03-08] MEDS: Ascorbic Acid 500 MG Tab PO SCH (08:17)
[2019-03-08] MEDS: Hydrochlorothiazide 25 MG Tab PO SCH (08:17)
[2019-03-08] MEDS: Hydrocortisone 2.5% Crm 30 GM Tube TOP SCH ×2 (08:18→20:08)
[2019-03-08] MEDS: Fluticasone Propionate Nasal Spray 16 GM Bottle NASBOTH SCH ×2 (08:18→20:07)
[2019-03-08] MEDS: Polyethylene Glycol 3350 Powder 17 GM Packet PO SCH (08:18)
[2019-03-08] MEDS: Ondansetron 4 MG Tab.DIS PO PRN (09:56)
[2019-03-08] MEDS: Enoxaparin 40 MG/0.4 ML Syringe SUBCUT SCH (15:30)
[2019-03-08] MEDS: oxyCODONE 5 MG Tab PO PRN ×2 (15:30→20:48)
[2019-03-08] MEDS: Citalopram 20 MG Tab PO SCH (20:47)
[2019-03-08] MEDS: Montelukast 10 MG Tab PO SCH (20:48)
[2019-03-09] MEDS: oxyCODONE 5 MG Tab PO PRN ×5 (00:45→22:00)
[2019-03-09] MEDS: Pantoprazole 20 MG Tab, Delayed Release PO SCH (06:07)
[2019-03-09] MEDS: Multivitamins,Therapeutic Tab PO SCH (08:38)
[2019-03-09] MEDS: buPROPion 150 MG Tab.ER PO SCH (08:38)
[2019-03-09] MEDS: Cholecalciferol (Vitamin D3) 25 MCG Tab PO SCH (08:38)
[2019-03-09] MEDS: Hydrochlorothiazide 25 MG Tab PO SCH (08:39)
[2019-03-09] MEDS: Zinc Sulfate 220 MG Cap PO SCH (08:39)
[2019-03-09] MEDS: Calcium Carbonate 500 MG Tablet PO SCH ×3 (08:40→17:31)
[2019-03-09] MEDS: Magnesium Oxide 400 MG Tab PO SCH ×2 (08:41→17:32)
[2019-03-09] MEDS: Ascorbic Acid 500 MG Tab PO SCH (08:41)
[2019-03-09] MEDS: metFORMIN 500 MG Tab PO SCH ×2 (08:47→17:32)
[2019-03-09] MEDS: Fluticasone Propionate Nasal Spray 16 GM Bottle NASBOTH SCH ×2 (08:49→21:45)
[2019-03-09] MEDS: Acetaminophen 500 MG Tab PO SCH ×3 (08:55→21:44)
[2019-03-09] MEDS: atorvaSTATin 40 MG Tab PO SCH (08:57)
[2019-03-09] MEDS: Polyethylene Glycol 3350 Powder 17 GM Packet PO SCH (09:02)
[2019-03-09] MEDS: Hydrocortisone 2.5% Crm 30 GM Tube TOP SCH ×2 (10:30→21:46)
[2019-03-09] MEDS: Ondansetron 4 MG Tab.DIS PO PRN ×2 (11:38→17:38)
[2019-03-09] MEDS: Enoxaparin 40 MG/0.4 ML Syringe SUBCUT SCH (16:21)
[2019-03-09] MEDS: Citalopram 20 MG Tab PO SCH (21:45)
[2019-03-09] MEDS: Montelukast 10 MG Tab PO SCH (21:46)
[2019-03-09] MEDS: OZEMPIC 0.5 MG SUBCUT SCH (21:50)
[2019-03-10] MEDS: oxyCODONE 5 MG Tab PO PRN ×5 (03:35→23:41)
[2019-03-10] MEDS: Pantoprazole 20 MG Tab, Delayed Release PO SCH (06:25)
[2019-03-10] MEDS: Calcium Carbonate 500 MG Tablet PO SCH ×3 (08:12→17:56)
[2019-03-10] MEDS: Magnesium Oxide 400 MG Tab PO SCH ×2 (08:12→17:56)
[2019-03-10] MEDS: Aspirin 325 MG Tab.EC PO SCH (08:13)
[2019-03-10] MEDS: Hydrocortisone 2.5% Crm 30 GM Tube TOP SCH ×2 (08:13→20:39)
[2019-03-10] MEDS: Fluticasone Propionate Nasal Spray 16 GM Bottle NASBOTH SCH ×2 (08:13→20:38)
[2019-03-10] MEDS: Hydrochlorothiazide 25 MG Tab PO SCH (08:13)
[2019-03-10] MEDS: atorvaSTATin 40 MG Tab PO SCH (08:14)
[2019-03-10] MEDS: Polyethylene Glycol 3350 Powder 17 GM Packet PO SCH (08:14)
[2019-03-10] MEDS: Multivitamins,Therapeutic Tab PO SCH (08:15)
[2019-03-10] MEDS: Zinc Sulfate 220 MG Cap PO SCH (08:16)
[2019-03-10] MEDS: Ascorbic Acid 500 MG Tab PO SCH (08:16)
[2019-03-10] MEDS: buPROPion 150 MG Tab.ER PO SCH (08:16)
[2019-03-10] MEDS: Cholecalciferol (Vitamin D3) 25 MCG Tab PO SCH (08:16)
[2019-03-10] MEDS: metFORMIN 500 MG Tab PO SCH ×2 (08:20→17:55)
[2019-03-10] MEDS: Acetaminophen 500 MG Tab PO SCH ×3 (08:39→20:39)
[2019-03-10] MEDS: Enoxaparin 40 MG/0.4 ML Syringe SUBCUT SCH (16:52)
[2019-03-10] MEDS: Citalopram 20 MG Tab PO SCH (20:39)
[2019-03-10] MEDS: Montelukast 10 MG Tab PO SCH (20:39)
[2019-03-10] MEDS: Acetaminophen 325 MG Tab PO PRN (23:50)
[2019-03-11] MEDS: oxyCODONE 5 MG Tab PO PRN ×4 (05:55→21:58)
[2019-03-11] MEDS: Pantoprazole 20 MG Tab, Delayed Release PO SCH (05:57)
[2019-03-11] MEDS: Magnesium Oxide 400 MG Tab PO SCH ×2 (07:41→17:33)
[2019-03-11] MEDS: Calcium Carbonate 500 MG Tablet PO SCH ×3 (07:42→17:33)
[2019-03-11] MEDS: metFORMIN 500 MG Tab PO SCH ×2 (07:43→17:33)
[2019-03-11] MEDS: Acetaminophen 500 MG Tab PO SCH ×3 (08:18→21:02)
[2019-03-11] MEDS: Ascorbic Acid 500 MG Tab PO SCH (08:18)
[2019-03-11] MEDS: Hydrochlorothiazide 25 MG Tab PO SCH (08:18)
[2019-03-11] MEDS: Aspirin 325 MG Tab.EC PO SCH (08:19)
[2019-03-11] MEDS: Cholecalciferol (Vitamin D3) 25 MCG Tab PO SCH (08:19)
[2019-03-11] MEDS: atorvaSTATin 40 MG Tab PO SCH (08:19)
[2019-03-11] MEDS: Zinc Sulfate 220 MG Cap PO SCH (08:19)
[2019-03-11] MEDS: Multivitamins,Therapeutic Tab PO SCH (08:20)
[2019-03-11] MEDS: Fluticasone Propionate Nasal Spray 16 GM Bottle NASBOTH SCH ×2 (08:25→21:02)
[2019-03-11] MEDS: Hydrocortisone 2.5% Crm 30 GM Tube TOP SCH ×2 (08:26→21:03)
[2019-03-11] MEDS: Polyethylene Glycol 3350 Powder 17 GM Packet PO SCH ×2 (08:27→10:04)
[2019-03-11] MEDS: buPROPion 150 MG Tab.ER PO SCH (08:28)
[2019-03-11] MEDS: Enoxaparin 40 MG/0.4 ML Syringe SUBCUT SCH (15:49)
[2019-03-11] MEDS: Acetaminophen 325 MG Tab PO PRN (17:32)
[2019-03-11] MEDS: Montelukast 10 MG Tab PO SCH (21:03)
[2019-03-11] MEDS: Citalopram 20 MG Tab PO SCH (21:03)
[2019-03-12] MEDS: Acetaminophen 325 MG Tab PO PRN (01:13)
[2019-03-12] MEDS: oxyCODONE 5 MG Tab PO PRN ×4 (04:23→19:01)
[2019-03-12] MEDS: Pantoprazole 20 MG Tab, Delayed Release PO SCH (05:49)
[2019-03-12] MEDS: Magnesium Oxide 400 MG Tab PO SCH ×2 (07:37→18:03)
[2019-03-12] MEDS: metFORMIN 500 MG Tab PO SCH ×2 (07:37→18:04)
[2019-03-12] MEDS: Calcium Carbonate 500 MG Tablet PO SCH ×3 (07:37→18:03)
[2019-03-12] MEDS: Polyethylene Glycol 3350 Powder 17 GM Packet PO SCH (08:19)
[2019-03-12] MEDS: Acetaminophen 500 MG Tab PO SCH ×3 (08:20→20:45)
[2019-03-12] MEDS: Cholecalciferol (Vitamin D3) 25 MCG Tab PO SCH (08:20)
[2019-03-12] MEDS: buPROPion 150 MG Tab.ER PO SCH (08:21)
[2019-03-12] MEDS: Aspirin 325 MG Tab.EC PO SCH (08:21)
[2019-03-12] MEDS: Hydrochlorothiazide 25 MG Tab PO SCH (08:21)
[2019-03-12] MEDS: atorvaSTATin 40 MG Tab PO SCH (08:22)
[2019-03-12] MEDS: Multivitamins,Therapeutic Tab PO SCH (08:22)
[2019-03-12] MEDS: Ascorbic Acid 500 MG Tab PO SCH (08:22)
[2019-03-12] MEDS: Zinc Sulfate 220 MG Cap PO SCH (08:22)
[2019-03-12] MEDS: Hydrocortisone 2.5% Crm 30 GM Tube TOP SCH ×2 (08:23→20:43)
[2019-03-12] MEDS: Fluticasone Propionate Nasal Spray 16 GM Bottle NASBOTH SCH ×2 (08:24→20:43)
[2019-03-12] MEDS: Enoxaparin 40 MG/0.4 ML Syringe SUBCUT SCH (16:09)
[2019-03-12] MEDS: Citalopram 20 MG Tab PO SCH (20:42)
[2019-03-12] MEDS: Montelukast 10 MG Tab PO SCH (20:44)
[2019-03-13] MEDS: oxyCODONE 5 MG Tab PO PRN ×2 (02:32→08:22)
[2019-03-13] MEDS: Acetaminophen 325 MG Tab PO PRN (02:32)
[2019-03-13] MEDS: Pantoprazole 20 MG Tab, Delayed Release PO SCH (06:30)
[2019-03-13] MEDS: Multivitamins,Therapeutic Tab PO SCH (08:21)
[2019-03-13] MEDS: Magnesium Oxide 400 MG Tab PO SCH ×2 (08:21→18:31)
[2019-03-13] MEDS: Acetaminophen 500 MG Tab PO SCH ×3 (08:21→21:11)
[2019-03-13] MEDS: Calcium Carbonate 500 MG Tablet PO SCH ×3 (08:21→18:31)
[2019-03-13] MEDS: buPROPion 150 MG Tab.ER PO SCH (08:21)
[2019-03-13] MEDS: Ascorbic Acid 500 MG Tab PO SCH (08:21)
[2019-03-13] MEDS: atorvaSTATin 40 MG Tab PO SCH (08:21)
[2019-03-13] MEDS: Fluticasone Propionate Nasal Spray 16 GM Bottle NASBOTH SCH ×2 (08:22→21:10)
[2019-03-13] MEDS: Aspirin 325 MG Tab.EC PO SCH (08:22)
[2019-03-13] MEDS: Hydrochlorothiazide 25 MG Tab PO SCH (08:22)
[2019-03-13] MEDS: Hydrocortisone 2.5% Crm 30 GM Tube TOP SCH ×2 (08:22→21:10)
[2019-03-13] MEDS: Polyethylene Glycol 3350 Powder 17 GM Packet PO SCH (08:23)
[2019-03-13] MEDS: Cholecalciferol (Vitamin D3) 25 MCG Tab PO SCH (08:23)
[2019-03-13] MEDS: Zinc Sulfate 220 MG Cap PO SCH (08:23)
[2019-03-13] MEDS: metFORMIN 500 MG Tab PO SCH ×2 (08:25→18:31)
[2019-03-13] MEDS: Ondansetron 4 MG Tab.DIS PO PRN (16:30)
[2019-03-13] MEDS: Enoxaparin 40 MG/0.4 ML Syringe SUBCUT SCH (16:37)
[2019-03-13] MEDS: Citalopram 20 MG Tab PO SCH (21:09)
[2019-03-13] MEDS: Montelukast 10 MG Tab PO SCH (21:10)
[2019-03-13] MEDS: Triamcinolone Acetonide 0.1% Dental Paste 5 GM Tube DENT SCH (21:22)
[2019-03-14] MEDS: Pantoprazole 20 MG Tab, Delayed Release PO SCH (05:45)
[2019-03-14] MEDS: metFORMIN 500 MG Tab PO SCH ×2 (08:44→17:10)
[2019-03-14] MEDS: Calcium Carbonate 500 MG Tablet PO SCH ×3 (08:44→17:10)
[2019-03-14] MEDS: Magnesium Oxide 400 MG Tab PO SCH ×2 (08:44→17:10)
[2019-03-14] MEDS: Hydrochlorothiazide 25 MG Tab PO SCH (08:45)
[2019-03-14] MEDS: Fluticasone Propionate Nasal Spray 16 GM Bottle NASBOTH SCH ×2 (08:45→20:31)
[2019-03-14] MEDS: Aspirin 325 MG Tab.EC PO SCH (08:45)
[2019-03-14] MEDS: Hydrocortisone 2.5% Crm 30 GM Tube TOP SCH ×2 (08:45→20:32)
[2019-03-14] MEDS: Triamcinolone Acetonide 0.1% Dental Paste 5 GM Tube DENT SCH ×4 (08:46→20:32)
[2019-03-14] MEDS: Polyethylene Glycol 3350 Powder 17 GM Packet PO SCH (08:46)
[2019-03-14] MEDS: atorvaSTATin 40 MG Tab PO SCH (08:46)
[2019-03-14] MEDS: Zinc Sulfate 220 MG Cap PO SCH (08:47)
[2019-03-14] MEDS: Ascorbic Acid 500 MG Tab PO SCH (08:47)
[2019-03-14] MEDS: buPROPion 150 MG Tab.ER PO SCH (08:47)
[2019-03-14] MEDS: Cholecalciferol (Vitamin D3) 25 MCG Tab PO SCH (08:47)
[2019-03-14] MEDS: Multivitamins,Therapeutic Tab PO SCH (08:47)
[2019-03-14] MEDS: Acetaminophen 500 MG Tab PO SCH ×3 (08:47→20:31)
[2019-03-14] MEDS: oxyCODONE 5 MG Tab PO PRN ×2 (11:19→15:49)
--- NOTE | 2019-03-14 15:39 | PN ---
DATE SEEN: 03/14/2019 SUBJECTIVE: Kelly Gomez is a delightful 78-year-old female, in swing bed. Took a fall at her residence at [facility]. Sustained a right humeral fracture, nonsurgical, impacted lightly, and a right hip fracture. Hip fracture was repaired. Hip pain is minimal. Analgesics available. Primary issue is right arm. Had some reluctance to move, therapy has been involved, happily making transition, no indication for anxiety medications. Laboratory studies, none required. Hemoglobin though was 8.8. We will recheck hemoglobin. OBJECTIVE: VITAL SIGNS: 36.7, 92, 125/78, 18, 96. GENERAL: Appears comfortable. Soft spoken. Gives a good history. MOUTH AND OROPHARYNX: Clear. NECK: Benign. Thyroid small. CHEST: Clear in all lung christianson. HEART: No ectopy or murmur. ABDOMEN: Benign. EXTREMITIES: Right arm in sling, surgical site right hip intact. ASSESSMENT: Right hip fracture, right humeral fracture. PLAN: PT intervention and care appropriate, no anxiolytics or meds for mood. X- ray of the right humerus will be obtained. /[id number] VLADIMIR/GISEL
[2019-03-14] MEDS: Enoxaparin 40 MG/0.4 ML Syringe SUBCUT SCH (17:10)
[2019-03-14] MEDS: Citalopram 20 MG Tab PO SCH (20:31)
[2019-03-14] MEDS: Montelukast 10 MG Tab PO SCH (20:31)
[2019-03-15] MEDS: oxyCODONE 5 MG Tab PO PRN ×5 (02:42→21:50)
[2019-03-15] MEDS: Pantoprazole 20 MG Tab, Delayed Release PO SCH (05:28)
[2019-03-15] MEDS: Magnesium Oxide 400 MG Tab PO SCH ×2 (07:23→17:06)
[2019-03-15] MEDS: metFORMIN 500 MG Tab PO SCH ×2 (07:23→17:06)
[2019-03-15] MEDS: Calcium Carbonate 500 MG Tablet PO SCH ×3 (07:24→17:06)
[2019-03-15] MEDS: Fluticasone Propionate Nasal Spray 16 GM Bottle NASBOTH SCH ×2 (09:07→21:48)
[2019-03-15] MEDS: Hydrochlorothiazide 25 MG Tab PO SCH (09:07)
[2019-03-15] MEDS: Aspirin 325 MG Tab.EC PO SCH (09:07)
[2019-03-15] MEDS: Hydrocortisone 2.5% Crm 30 GM Tube TOP SCH ×2 (09:08→21:48)
[2019-03-15] MEDS: atorvaSTATin 40 MG Tab PO SCH (09:08)
[2019-03-15] MEDS: Polyethylene Glycol 3350 Powder 17 GM Packet PO SCH (09:09)
[2019-03-15] MEDS: Triamcinolone Acetonide 0.1% Dental Paste 5 GM Tube DENT SCH ×4 (09:10→21:48)
[2019-03-15] MEDS: Cholecalciferol (Vitamin D3) 25 MCG Tab PO SCH (09:10)
[2019-03-15] MEDS: Acetaminophen 500 MG Tab PO SCH ×3 (09:10→21:49)
[2019-03-15] MEDS: Ascorbic Acid 500 MG Tab PO SCH (09:10)
[2019-03-15] MEDS: Multivitamins,Therapeutic Tab PO SCH (09:10)
[2019-03-15] MEDS: buPROPion 150 MG Tab.ER PO SCH (09:11)
[2019-03-15] MEDS: Zinc Sulfate 220 MG Cap PO SCH (09:11)
[2019-03-15] MEDS: Enoxaparin 40 MG/0.4 ML Syringe SUBCUT SCH (15:10)
[2019-03-15] MEDS: Citalopram 20 MG Tab PO SCH (21:47)
[2019-03-15] MEDS: Montelukast 10 MG Tab PO SCH (21:49)
[2019-03-16] MEDS: oxyCODONE 5 MG Tab PO PRN ×4 (04:54→20:55)
[2019-03-16] MEDS: Pantoprazole 20 MG Tab, Delayed Release PO SCH (06:21)
[2019-03-16] MEDS: Calcium Carbonate 500 MG Tablet PO SCH ×3 (07:55→16:59)
[2019-03-16] MEDS: Magnesium Oxide 400 MG Tab PO SCH ×2 (07:56→16:59)
[2019-03-16] MEDS: metFORMIN 500 MG Tab PO SCH ×2 (07:56→16:59)
[2019-03-16] MEDS: atorvaSTATin 40 MG Tab PO SCH (08:05)
[2019-03-16] MEDS: Zinc Sulfate 220 MG Cap PO SCH (08:05)
[2019-03-16] MEDS: buPROPion 150 MG Tab.ER PO SCH (08:05)
[2019-03-16] MEDS: Ascorbic Acid 500 MG Tab PO SCH (08:17)
[2019-03-16] MEDS: Multivitamins,Therapeutic Tab PO SCH (08:17)
[2019-03-16] MEDS: Polyethylene Glycol 3350 Powder 17 GM Packet PO SCH (08:18)
[2019-03-16] MEDS: Triamcinolone Acetonide 0.1% Dental Paste 5 GM Tube DENT SCH ×4 (08:18→20:42)
[2019-03-16] MEDS: Acetaminophen 500 MG Tab PO SCH ×3 (08:18→20:42)
[2019-03-16] MEDS: Cholecalciferol (Vitamin D3) 25 MCG Tab PO SCH (08:18)
[2019-03-16] MEDS: Hydrocortisone 2.5% Crm 30 GM Tube TOP SCH ×2 (08:19→20:41)
[2019-03-16] MEDS: Fluticasone Propionate Nasal Spray 16 GM Bottle NASBOTH SCH ×2 (08:19→20:41)
[2019-03-16] MEDS: Hydrochlorothiazide 25 MG Tab PO SCH (08:20)
[2019-03-16] MEDS: Aspirin 325 MG Tab.EC PO SCH (08:21)
[2019-03-16] MEDS: Enoxaparin 40 MG/0.4 ML Syringe SUBCUT SCH (15:26)
[2019-03-16] MEDS: Ondansetron 4 MG Tab.DIS PO PRN (19:14)
[2019-03-16] MEDS: Citalopram 20 MG Tab PO SCH (20:41)
[2019-03-16] MEDS: Montelukast 10 MG Tab PO SCH (20:42)
[2019-03-16] MEDS: OZEMPIC 0.5 MG SUBCUT SCH (20:49)
[2019-03-17] MEDS: Pantoprazole 20 MG Tab, Delayed Release PO SCH (05:10)
[2019-03-17] MEDS: oxyCODONE 5 MG Tab PO PRN ×3 (05:10→21:34)
[2019-03-17] MEDS: metFORMIN 500 MG Tab PO SCH ×2 (07:55→17:16)
[2019-03-17] MEDS: Calcium Carbonate 500 MG Tablet PO SCH ×3 (07:55→17:16)
[2019-03-17] MEDS: Magnesium Oxide 400 MG Tab PO SCH ×2 (07:55→17:16)
[2019-03-17] MEDS: Fluticasone Propionate Nasal Spray 16 GM Bottle NASBOTH SCH ×2 (07:59→21:32)
[2019-03-17] MEDS: Zinc Sulfate 220 MG Cap PO SCH (08:00)
[2019-03-17] MEDS: buPROPion 150 MG Tab.ER PO SCH (08:00)
[2019-03-17] MEDS: Ascorbic Acid 500 MG Tab PO SCH (08:01)
[2019-03-17] MEDS: atorvaSTATin 40 MG Tab PO SCH (08:01)
[2019-03-17] MEDS: Multivitamins,Therapeutic Tab PO SCH (08:01)
[2019-03-17] MEDS: Cholecalciferol (Vitamin D3) 25 MCG Tab PO SCH (08:01)
[2019-03-17] MEDS: Hydrochlorothiazide 25 MG Tab PO SCH (08:01)
[2019-03-17] MEDS: Aspirin 325 MG Tab.EC PO SCH (08:02)
[2019-03-17] MEDS: Acetaminophen 500 MG Tab PO SCH ×3 (08:02→21:33)
[2019-03-17] MEDS: Hydrocortisone 2.5% Crm 30 GM Tube TOP SCH ×2 (08:06→21:33)
[2019-03-17] MEDS: Polyethylene Glycol 3350 Powder 17 GM Packet PO SCH (08:08)
[2019-03-17] MEDS: Triamcinolone Acetonide 0.1% Dental Paste 5 GM Tube DENT SCH ×4 (08:08→21:35)
--- NOTE | 2019-03-17 08:16 | PN ---
DATE SEEN: 03/15/2019 Swing bed stay. SUBJECTIVE: Kelly Gomez is a 78-year-old female, seen today for review. Had a complicated fall resulting in a proximal humerus fracture, markedly displaced, right hip fracture. Right hip was surgically repaired, right humerus under conservative treatment. PT actively involved. Pain appears to be controlled. Walking with better success in outcome. OBJECTIVE: VITAL SIGNS: 125/73, 18, 96%, 37.2 degrees Fahrenheit. GENERAL: Appears comfortable. EXTREMITIES: Tender over the right proximal shoulder, minimal edema and ecchymoses. Right hip surgical wound intact. ASSESSMENT: Hip fracture, humerus fracture. PLAN: Pain pills on board, medications and care. PT actively involved. /[id number] VLADIMIR/GISEL
[2019-03-17] MEDS: Ondansetron 4 MG Tab.DIS PO PRN (11:21)
--- NOTE | 2019-03-17 12:01 | PN ---
DATE SEEN: 03/16/2019 SUBJECTIVE: Kelly Gomez is a 78-year-old female, seen today for routine swing bed care. Doing well, right hip fracture healing without difficulty. Wound was inspected. The pain in the right shoulder, moderate. Physical therapy is going well. OBJECTIVE: VITAL SIGNS: 36.5, 86 is the pulse, 139/79, 16, and 97. GENERAL: Appears comfortable. CHEST: Clear in all lung christianson. HEART: No ectopy or murmur. ABDOMEN: Benign. EXTREMITIES: Right arm in a sling. Surgical wound of right hip. Steri-Strips in place intact. ASSESSMENT: Postoperative care for right hip fracture, right humeral fracture. PLAN: X-rays were reviewed, appears to be problematic in nature but ortho visit upcoming and planned. /[id number] VLADIMIR/GISEL
[2019-03-17] MEDS: Enoxaparin 40 MG/0.4 ML Syringe SUBCUT SCH (15:53)
[2019-03-17] MEDS: Montelukast 10 MG Tab PO SCH (21:37)
[2019-03-17] MEDS: Citalopram 20 MG Tab PO SCH (21:38)
[2019-03-18] MEDS: Pantoprazole 20 MG Tab, Delayed Release PO SCH (06:12)
[2019-03-18] MEDS: Triamcinolone Acetonide 0.1% Dental Paste 5 GM Tube DENT SCH ×2 (08:26→21:14)
[2019-03-18] MEDS: Polyethylene Glycol 3350 Powder 17 GM Packet PO SCH (08:26)
[2019-03-18] MEDS: metFORMIN 500 MG Tab PO SCH ×2 (08:27→17:34)
[2019-03-18] MEDS: Magnesium Oxide 400 MG Tab PO SCH ×2 (08:27→17:34)
[2019-03-18] MEDS: Calcium Carbonate 500 MG Tablet PO SCH ×3 (08:28→17:34)
[2019-03-18] MEDS: Aspirin 325 MG Tab.EC PO SCH (08:28)
[2019-03-18] MEDS: Hydrochlorothiazide 25 MG Tab PO SCH (08:29)
[2019-03-18] MEDS: Fluticasone Propionate Nasal Spray 16 GM Bottle NASBOTH SCH ×2 (08:29→21:12)
[2019-03-18] MEDS: Hydrocortisone 2.5% Crm 30 GM Tube TOP SCH ×2 (08:31→21:13)
[2019-03-18] MEDS: atorvaSTATin 40 MG Tab PO SCH (08:32)
[2019-03-18] MEDS: Multivitamins,Therapeutic Tab PO SCH (08:34)
[2019-03-18] MEDS: Acetaminophen 500 MG Tab PO SCH ×3 (08:34→21:15)
[2019-03-18] MEDS: Cholecalciferol (Vitamin D3) 25 MCG Tab PO SCH (08:35)
[2019-03-18] MEDS: Ascorbic Acid 500 MG Tab PO SCH (08:35)
[2019-03-18] MEDS: buPROPion 150 MG Tab.ER PO SCH (08:36)
[2019-03-18] MEDS: Zinc Sulfate 220 MG Cap PO SCH (08:36)
[2019-03-18] MEDS: oxyCODONE 5 MG Tab PO PRN (11:11)
--- NOTE | 2019-03-18 11:19 | PN ---
DATE SEEN: 03/18/2019 SUBJECTIVE: Kelly Gomez is a delightful 78-year-old female, in swing bed. Had a problematic fall at her home in her apartment hallway, sustaining a right proximal humerus fracture, nonsurgical at this time, and the surgical right hip fracture. Repaired, in for long-term rehab. Doing better. Even carlo walker working well. Pain appears to be controlled. Physical therapy provided good benefit. OBJECTIVE: CHEST: Clear. HEART: Regular. ABDOMEN: Benign. Minimal ecchymoses over the right hip, wound healing well. Moderate pain, mid upper third right shoulder. IMPRESSION: Right humeral fracture and right hip fracture. PLAN: PT intervention in place. Long-term plans still uncertain. /[id number] VLADIMIR/GISEL
--- NOTE | 2019-03-18 13:44 | PN ---
DATE SEEN: 03/17/2019 SUBJECTIVE: Kelly Gomez is a 78-year-old female, swing bed, convalescent care, proximal humeral fracture, nonsurgical, and repair of left hip fracture. Doing well. Pain is moderateD at best. Doing well. Pain in shoulder primary. Hip pain reasonable. Wound has been inspected, free of issues, Steri-Strips in place. No surgical lisseth or sutures to be removed. Pain is controlled. Nursing notes reviewed and updated interim plan. LABORATORY STUDIES: Blood sugars comfortable. OBJECTIVE: VITAL SIGNS: 36.8, 90, 141/79, 20, and 96%. GENERAL: In good spirits. NECK: Benign. Thyroid small. CHEST: Clear in all lung christianson. HEART: No ectopy or murmur. EXTREMITIES: Upper arm with ecchymosis, right side, moderated in movement. Right hip surgical wound intact. IMPRESSION: Proximal humerus fracture, hip fracture, surgical repair of hip fracture. PLAN: PT intervention. Close observation. Long-term plan is in place. /[id number] /GISEL
[2019-03-18] MEDS: Enoxaparin 40 MG/0.4 ML Syringe SUBCUT SCH (17:32)
[2019-03-18] MEDS: Citalopram 20 MG Tab PO SCH (21:11)
[2019-03-18] MEDS: Montelukast 10 MG Tab PO SCH (21:14)
[2019-03-19] MEDS: oxyCODONE 5 MG Tab PO PRN ×3 (02:48→20:58)
[2019-03-19] MEDS: Pantoprazole 20 MG Tab, Delayed Release PO SCH (05:51)
[2019-03-19] MEDS: metFORMIN 500 MG Tab PO SCH ×2 (08:22→17:32)
[2019-03-19] MEDS: Magnesium Oxide 400 MG Tab PO SCH ×2 (08:22→17:33)
[2019-03-19] MEDS: Calcium Carbonate 500 MG Tablet PO SCH ×3 (08:23→17:33)
[2019-03-19] MEDS: Aspirin 325 MG Tab.EC PO SCH (08:23)
[2019-03-19] MEDS: Fluticasone Propionate Nasal Spray 16 GM Bottle NASBOTH SCH ×2 (08:24→20:59)
[2019-03-19] MEDS: Hydrochlorothiazide 25 MG Tab PO SCH (08:26)
[2019-03-19] MEDS: atorvaSTATin 40 MG Tab PO SCH (08:27)
[2019-03-19] MEDS: Polyethylene Glycol 3350 Powder 17 GM Packet PO SCH (08:28)
[2019-03-19] MEDS: Cholecalciferol (Vitamin D3) 25 MCG Tab PO SCH (08:29)
[2019-03-19] MEDS: Ascorbic Acid 500 MG Tab PO SCH (08:29)
[2019-03-19] MEDS: Acetaminophen 500 MG Tab PO SCH ×3 (08:29→20:58)
[2019-03-19] MEDS: Multivitamins,Therapeutic Tab PO SCH (08:29)
[2019-03-19] MEDS: buPROPion 150 MG Tab.ER PO SCH (08:34)
[2019-03-19] MEDS: Zinc Sulfate 220 MG Cap PO SCH (08:34)
[2019-03-19] MEDS: Hydrocortisone 2.5% Crm 30 GM Tube TOP SCH ×2 (08:35→21:00)
[2019-03-19] MEDS: Ondansetron 4 MG Tab.DIS PO PRN ×2 (08:36→16:02)
--- NOTE | 2019-03-19 11:54 | PN ---
DATE SEEN: 03/19/2019 SUBJECTIVE: Kelly Gomez is a 78-year-old female, in swing bed. Complicated proximal humeral impacted fracture, nonsurgical repair of right hip fracture. She has had some reluctance with her stools and urgency, just feeling poorly. MiraLAX on board. Rectal exam to be pursued. Otherwise doing well for pain. PHYSICAL EXAMINATION: VITAL SIGNS: Stable. EXTREMITIES: Surgical site intact. CHEST: Clear. HEART: Regular. ASSESSMENT: 1. Right humeral fracture. 2. Right hip fracture. PLAN: We will watch her stools closely, intervention and care from there. /[id number] VLADIMIR/GISEL
[2019-03-19] MEDS: Enoxaparin 40 MG/0.4 ML Syringe SUBCUT SCH (15:46)
[2019-03-19] MEDS: Montelukast 10 MG Tab PO SCH (20:58)
[2019-03-19] MEDS: Citalopram 20 MG Tab PO SCH (20:59)
[2019-03-19] MEDS: Triamcinolone Acetonide 0.1% Dental Paste 5 GM Tube DENT SCH (21:00)
[2019-03-20] MEDS: Pantoprazole 20 MG Tab, Delayed Release PO SCH (05:13)
[2019-03-20] MEDS: oxyCODONE 5 MG Tab PO PRN ×2 (05:13→21:30)
[2019-03-20] MEDS: metFORMIN 500 MG Tab PO SCH ×2 (09:07→17:36)
[2019-03-20] MEDS: Fluticasone Propionate Nasal Spray 16 GM Bottle NASBOTH SCH ×2 (09:08→20:49)
[2019-03-20] MEDS: Aspirin 325 MG Tab.EC PO SCH (09:08)
[2019-03-20] MEDS: Magnesium Oxide 400 MG Tab PO SCH ×2 (09:08→17:37)
[2019-03-20] MEDS: Calcium Carbonate 500 MG Tablet PO SCH ×3 (09:08→17:37)
[2019-03-20] MEDS: Hydrocortisone 2.5% Crm 30 GM Tube TOP SCH ×2 (09:09→20:49)
[2019-03-20] MEDS: Hydrochlorothiazide 25 MG Tab PO SCH (09:09)
[2019-03-20] MEDS: atorvaSTATin 40 MG Tab PO SCH (09:09)
[2019-03-20] MEDS: Polyethylene Glycol 3350 Powder 17 GM Packet PO SCH (09:11)
[2019-03-20] MEDS: Multivitamins,Therapeutic Tab PO SCH (09:11)
[2019-03-20] MEDS: Ascorbic Acid 500 MG Tab PO SCH (09:11)
[2019-03-20] MEDS: Cholecalciferol (Vitamin D3) 25 MCG Tab PO SCH (09:11)
[2019-03-20] MEDS: Acetaminophen 500 MG Tab PO SCH ×3 (09:11→20:50)
[2019-03-20] MEDS: buPROPion 150 MG Tab.ER PO SCH (09:12)
[2019-03-20] MEDS: Zinc Sulfate 220 MG Cap PO SCH (09:12)
--- NOTE | 2019-03-20 11:38 | PN ---
DATE SEEN: 03/20/2019 SUBJECTIVE: Cinda Gomez is a 78-year-old female, hospitalized with a complicated proximal humeral fracture and right hip fracture. The right hip is doing well. Pain appears to be controlled. Motivation to increase activities has been a little bit inconsistent. The pain is doing well. OBJECTIVE: EXTREMITIES: On exam, right shoulder revealed palpable tenderness, ecchymosis resolving. Reduced range of motion. Surgical site on right hip intact. CHEST: Clear. HEART: Regular. ASSESSMENT: 1. Right hip fracture. 2. Right humeral fracture. PLAN: PT and intervention on board. Increasing motivation required. Does have citalopram and bupropion on board for mood stabilization. /[id number] /GISEL
[2019-03-20] MEDS: Ondansetron 4 MG Tab.DIS PO PRN (12:39)
[2019-03-20] MEDS: Enoxaparin 40 MG/0.4 ML Syringe SUBCUT SCH (17:36)
[2019-03-20] MEDS: Citalopram 20 MG Tab PO SCH (20:49)
[2019-03-20] MEDS: Montelukast 10 MG Tab PO SCH (20:50)
[2019-03-20] MEDS: Triamcinolone Acetonide 0.1% Dental Paste 5 GM Tube DENT SCH (20:50)
[2019-03-21] MEDS: oxyCODONE 5 MG Tab PO PRN ×2 (04:30→20:28)
[2019-03-21] MEDS: Pantoprazole 20 MG Tab, Delayed Release PO SCH (06:16)
[2019-03-21] MEDS: Multivitamins,Therapeutic Tab PO SCH (10:44)
[2019-03-21] MEDS: Fluticasone Propionate Nasal Spray 16 GM Bottle NASBOTH SCH ×2 (10:45→20:30)
[2019-03-21] MEDS: Cholecalciferol (Vitamin D3) 25 MCG Tab PO SCH (10:45)
[2019-03-21] MEDS: Zinc Sulfate 220 MG Cap PO SCH (10:45)
[2019-03-21] MEDS: Acetaminophen 500 MG Tab PO SCH ×3 (10:45→20:32)
[2019-03-21] MEDS: Aspirin 325 MG Tab.EC PO SCH (10:45)
[2019-03-21] MEDS: Magnesium Oxide 400 MG Tab PO SCH ×2 (10:45→17:23)
[2019-03-21] MEDS: buPROPion 150 MG Tab.ER PO SCH (10:45)
[2019-03-21] MEDS: Calcium Carbonate 500 MG Tablet PO SCH ×3 (10:45→17:23)
[2019-03-21] MEDS: Hydrocortisone 2.5% Crm 30 GM Tube TOP SCH ×2 (10:46→20:31)
[2019-03-21] MEDS: Polyethylene Glycol 3350 Powder 17 GM Packet PO SCH (10:46)
[2019-03-21] MEDS: Ascorbic Acid 500 MG Tab PO SCH (10:46)
[2019-03-21] MEDS: metFORMIN 500 MG Tab PO SCH ×2 (10:46→17:23)
[2019-03-21] MEDS: Hydrochlorothiazide 25 MG Tab PO SCH (10:46)
[2019-03-21] MEDS: atorvaSTATin 40 MG Tab PO SCH (10:47)
[2019-03-21] MEDS: Ondansetron 4 MG Tab.DIS PO PRN ×2 (12:09→20:35)
[2019-03-21] MEDS: Enoxaparin 40 MG/0.4 ML Syringe SUBCUT SCH (15:50)
[2019-03-21] MEDS: Citalopram 20 MG Tab PO SCH (20:30)
[2019-03-21] MEDS: Montelukast 10 MG Tab PO SCH (20:31)
[2019-03-21] MEDS: Triamcinolone Acetonide 0.1% Dental Paste 5 GM Tube DENT SCH (22:08)
[2019-03-22] MEDS: Acetaminophen 325 MG Tab PO PRN (04:20)
[2019-03-22] MEDS: oxyCODONE 5 MG Tab PO PRN ×3 (04:21→21:00)
[2019-03-22] MEDS: Pantoprazole 20 MG Tab, Delayed Release PO SCH (07:31)
[2019-03-22] MEDS: Calcium Carbonate 500 MG Tablet PO SCH ×3 (07:32→17:38)
[2019-03-22] MEDS: metFORMIN 500 MG Tab PO SCH ×2 (07:35→17:38)
[2019-03-22] MEDS: Magnesium Oxide 400 MG Tab PO SCH ×2 (07:36→17:38)
[2019-03-22] MEDS: Hydrochlorothiazide 25 MG Tab PO SCH (09:03)
[2019-03-22] MEDS: Fluticasone Propionate Nasal Spray 16 GM Bottle NASBOTH SCH ×2 (09:03→21:02)
[2019-03-22] MEDS: Hydrocortisone 2.5% Crm 30 GM Tube TOP SCH ×2 (09:03→21:02)
[2019-03-22] MEDS: atorvaSTATin 40 MG Tab PO SCH (09:04)
[2019-03-22] MEDS: Cholecalciferol (Vitamin D3) 25 MCG Tab PO SCH (09:04)
[2019-03-22] MEDS: buPROPion 150 MG Tab.ER PO SCH (09:04)
[2019-03-22] MEDS: Aspirin 325 MG Tab.EC PO SCH (09:04)
[2019-03-22] MEDS: Multivitamins,Therapeutic Tab PO SCH (09:04)
[2019-03-22] MEDS: Acetaminophen 500 MG Tab PO SCH ×3 (09:04→21:00)
[2019-03-22] MEDS: Zinc Sulfate 220 MG Cap PO SCH (09:05)
[2019-03-22] MEDS: Ascorbic Acid 500 MG Tab PO SCH (09:05)
[2019-03-22] MEDS: Polyethylene Glycol 3350 Powder 17 GM Packet PO SCH (09:10)
[2019-03-22] MEDS: Ondansetron 4 MG Tab.DIS PO PRN ×2 (12:56→21:06)
[2019-03-22] MEDS: Enoxaparin 40 MG/0.4 ML Syringe SUBCUT SCH (15:00)
[2019-03-22] MEDS: Triamcinolone Acetonide 0.1% Dental Paste 5 GM Tube DENT SCH (21:00)
[2019-03-22] MEDS: Citalopram 20 MG Tab PO SCH (21:01)
[2019-03-22] MEDS: Montelukast 10 MG Tab PO SCH (21:03)
[2019-03-23] MEDS: Acetaminophen 325 MG Tab PO PRN (02:47)
[2019-03-23] MEDS: oxyCODONE 5 MG Tab PO PRN ×2 (02:48→21:28)
[2019-03-23] MEDS: Pantoprazole 20 MG Tab, Delayed Release PO SCH (06:09)
[2019-03-23] MEDS: Calcium Carbonate 500 MG Tablet PO SCH ×3 (09:12→17:26)
[2019-03-23] MEDS: atorvaSTATin 40 MG Tab PO SCH (09:12)
[2019-03-23] MEDS: Ascorbic Acid 500 MG Tab PO SCH (09:12)
[2019-03-23] MEDS: Hydrochlorothiazide 25 MG Tab PO SCH (09:12)
[2019-03-23] MEDS: Magnesium Oxide 400 MG Tab PO SCH ×2 (09:12→17:26)
[2019-03-23] MEDS: Multivitamins,Therapeutic Tab PO SCH (09:13)
[2019-03-23] MEDS: metFORMIN 500 MG Tab PO SCH ×2 (09:13→17:26)
[2019-03-23] MEDS: Cholecalciferol (Vitamin D3) 25 MCG Tab PO SCH (09:13)
[2019-03-23] MEDS: Aspirin 325 MG Tab.EC PO SCH (09:13)
[2019-03-23] MEDS: Acetaminophen 500 MG Tab PO SCH ×3 (09:14→21:28)
[2019-03-23] MEDS: buPROPion 150 MG Tab.ER PO SCH (09:14)
[2019-03-23] MEDS: Polyethylene Glycol 3350 Powder 17 GM Packet PO SCH (09:16)
[2019-03-23] MEDS: Zinc Sulfate 220 MG Cap PO SCH (09:16)
[2019-03-23] MEDS: Fluticasone Propionate Nasal Spray 16 GM Bottle NASBOTH SCH ×2 (09:17→21:25)
[2019-03-23] MEDS: Hydrocortisone 2.5% Crm 30 GM Tube TOP SCH ×2 (09:17→21:26)
[2019-03-23] MEDS: Ondansetron 4 MG Tab.DIS PO PRN ×2 (09:29→21:02)
[2019-03-23] MEDS: Enoxaparin 40 MG/0.4 ML Syringe SUBCUT SCH (17:24)
[2019-03-23] MEDS: Citalopram 20 MG Tab PO SCH (21:26)
[2019-03-23] MEDS: Montelukast 10 MG Tab PO SCH (21:27)
[2019-03-23] MEDS: OZEMPIC 0.5 MG SUBCUT SCH (21:34)
[2019-03-23] MEDS: Triamcinolone Acetonide 0.1% Dental Paste 5 GM Tube DENT SCH (21:35)
[2019-03-24] MEDS: Pantoprazole 20 MG Tab, Delayed Release PO SCH (06:09)
[2019-03-24] MEDS: Hydrocortisone 2.5% Crm 30 GM Tube TOP SCH ×3 (08:45→20:20)
[2019-03-24] MEDS: Polyethylene Glycol 3350 Powder 17 GM Packet PO SCH (08:46)
[2019-03-24] MEDS: buPROPion 150 MG Tab.ER PO SCH (08:47)
[2019-03-24] MEDS: metFORMIN 500 MG Tab PO SCH ×2 (08:47→17:32)
[2019-03-24] MEDS: Ascorbic Acid 500 MG Tab PO SCH (08:47)
[2019-03-24] MEDS: Magnesium Oxide 400 MG Tab PO SCH ×2 (08:47→17:32)
[2019-03-24] MEDS: Zinc Sulfate 220 MG Cap PO SCH (08:47)
[2019-03-24] MEDS: Aspirin 325 MG Tab.EC PO SCH (08:47)
[2019-03-24] MEDS: Acetaminophen 500 MG Tab PO SCH ×3 (08:47→20:08)
[2019-03-24] MEDS: Hydrochlorothiazide 25 MG Tab PO SCH (08:47)
[2019-03-24] MEDS: Calcium Carbonate 500 MG Tablet PO SCH ×3 (08:47→17:33)
[2019-03-24] MEDS: Cholecalciferol (Vitamin D3) 25 MCG Tab PO SCH (08:48)
[2019-03-24] MEDS: oxyCODONE 5 MG Tab PO PRN ×2 (08:48→17:33)
[2019-03-24] MEDS: Multivitamins,Therapeutic Tab PO SCH (08:48)
[2019-03-24] MEDS: Fluticasone Propionate Nasal Spray 16 GM Bottle NASBOTH SCH ×2 (08:48→20:09)
[2019-03-24] MEDS: atorvaSTATin 40 MG Tab PO SCH (08:48)
[2019-03-24] MEDS: Enoxaparin 40 MG/0.4 ML Syringe SUBCUT SCH (16:39)
[2019-03-24] MEDS: Ondansetron 4 MG Tab.DIS PO PRN (20:07)
[2019-03-24] MEDS: Citalopram 20 MG Tab PO SCH (20:08)
[2019-03-24] MEDS: Montelukast 10 MG Tab PO SCH (20:08)
[2019-03-24] MEDS: Triamcinolone Acetonide 0.1% Dental Paste 5 GM Tube DENT SCH (20:08)
[2019-03-25] MEDS: Pantoprazole 20 MG Tab, Delayed Release PO SCH (05:25)
[2019-03-25] MEDS: oxyCODONE 5 MG Tab PO PRN ×3 (05:32→17:29)
[2019-03-25] MEDS: Calcium Carbonate 500 MG Tablet PO SCH ×3 (08:45→17:29)
[2019-03-25] MEDS: Magnesium Oxide 400 MG Tab PO SCH ×2 (08:45→17:29)
[2019-03-25] MEDS: metFORMIN 500 MG Tab PO SCH ×2 (08:45→17:29)
[2019-03-25] MEDS: atorvaSTATin 40 MG Tab PO SCH (08:46)
[2019-03-25] MEDS: Aspirin 325 MG Tab.EC PO SCH (08:46)
[2019-03-25] MEDS: Acetaminophen 500 MG Tab PO SCH ×3 (08:51→20:15)
[2019-03-25] MEDS: Polyethylene Glycol 3350 Powder 17 GM Packet PO SCH (08:51)
[2019-03-25] MEDS: Cholecalciferol (Vitamin D3) 25 MCG Tab PO SCH (08:51)
[2019-03-25] MEDS: Multivitamins,Therapeutic Tab PO SCH (08:51)
[2019-03-25] MEDS: Ascorbic Acid 500 MG Tab PO SCH (08:51)
[2019-03-25] MEDS: buPROPion 150 MG Tab.ER PO SCH (08:52)
[2019-03-25] MEDS: Zinc Sulfate 220 MG Cap PO SCH (08:52)
[2019-03-25] MEDS: Ondansetron 4 MG Tab.DIS PO PRN (13:30)
[2019-03-25] MEDS: Enoxaparin 40 MG/0.4 ML Syringe SUBCUT SCH (15:45)
[2019-03-25] MEDS: Citalopram 20 MG Tab PO SCH (20:15)
[2019-03-25] MEDS: Montelukast 10 MG Tab PO SCH (20:15)
[2019-03-26] MEDS: Pantoprazole 20 MG Tab, Delayed Release PO SCH (06:02)
[2019-03-26] MEDS: oxyCODONE 5 MG Tab PO PRN ×2 (07:53→16:51)
[2019-03-26] MEDS: metFORMIN 500 MG Tab PO SCH ×2 (07:54→17:00)
[2019-03-26] MEDS: Magnesium Oxide 400 MG Tab PO SCH ×2 (07:54→17:00)
[2019-03-26] MEDS: Calcium Carbonate 500 MG Tablet PO SCH ×3 (07:54→17:00)
[2019-03-26] MEDS: Ascorbic Acid 500 MG Tab PO SCH (07:59)
[2019-03-26] MEDS: Polyethylene Glycol 3350 Powder 17 GM Packet PO SCH (08:00)
[2019-03-26] MEDS: Cholecalciferol (Vitamin D3) 25 MCG Tab PO SCH (08:00)
[2019-03-26] MEDS: Acetaminophen 500 MG Tab PO SCH ×3 (08:00→21:10)
[2019-03-26] MEDS: Zinc Sulfate 220 MG Cap PO SCH (08:00)
[2019-03-26] MEDS: Aspirin 325 MG Tab.EC PO SCH (08:00)
[2019-03-26] MEDS: atorvaSTATin 40 MG Tab PO SCH (08:00)
[2019-03-26] MEDS: Multivitamins,Therapeutic Tab PO SCH (08:00)
[2019-03-26] MEDS: buPROPion 150 MG Tab.ER PO SCH (08:00)
[2019-03-26] MEDS: Ondansetron 4 MG Tab.DIS PO PRN (16:51)
[2019-03-26] MEDS: Enoxaparin 40 MG/0.4 ML Syringe SUBCUT SCH (16:54)
[2019-03-26] MEDS: Citalopram 20 MG Tab PO SCH (21:11)
[2019-03-26] MEDS: Montelukast 10 MG Tab PO SCH (21:11)
[2019-03-27] MEDS: Pantoprazole 20 MG Tab, Delayed Release PO SCH (06:05)
[2019-03-27] MEDS: Magnesium Oxide 400 MG Tab PO SCH ×2 (07:36→17:01)
[2019-03-27] MEDS: Calcium Carbonate 500 MG Tablet PO SCH ×3 (07:37→17:01)
[2019-03-27] MEDS: metFORMIN 500 MG Tab PO SCH ×2 (07:38→17:01)
[2019-03-27] MEDS: buPROPion 150 MG Tab.ER PO SCH (08:32)
[2019-03-27] MEDS: Multivitamins,Therapeutic Tab PO SCH (08:32)
[2019-03-27] MEDS: Aspirin 325 MG Tab.EC PO SCH (08:32)
[2019-03-27] MEDS: Cholecalciferol (Vitamin D3) 25 MCG Tab PO SCH (08:32)
[2019-03-27] MEDS: Zinc Sulfate 220 MG Cap PO SCH (08:33)
[2019-03-27] MEDS: Acetaminophen 500 MG Tab PO SCH ×3 (08:33→20:01)
[2019-03-27] MEDS: Polyethylene Glycol 3350 Powder 17 GM Packet PO SCH (08:33)
[2019-03-27] MEDS: Ascorbic Acid 500 MG Tab PO SCH (08:33)
[2019-03-27] MEDS: atorvaSTATin 40 MG Tab PO SCH (08:34)
[2019-03-27] MEDS: Enoxaparin 40 MG/0.4 ML Syringe SUBCUT SCH (16:57)
[2019-03-27] MEDS: Citalopram 20 MG Tab PO SCH (20:01)
[2019-03-27] MEDS: Montelukast 10 MG Tab PO SCH (20:01)
[2019-03-27] MEDS: oxyCODONE 5 MG Tab PO PRN (23:34)
[2019-03-28] MEDS: Acetaminophen 325 MG Tab PO PRN (02:40)
[2019-03-28] MEDS: Pantoprazole 20 MG Tab, Delayed Release PO SCH (05:48)
[2019-03-28] MEDS: metFORMIN 500 MG Tab PO SCH ×2 (08:05→17:10)
[2019-03-28] MEDS: atorvaSTATin 40 MG Tab PO SCH (08:05)
[2019-03-28] MEDS: Magnesium Oxide 400 MG Tab PO SCH ×2 (08:05→17:10)
[2019-03-28] MEDS: Aspirin 325 MG Tab.EC PO SCH (08:05)
[2019-03-28] MEDS: Calcium Carbonate 500 MG Tablet PO SCH ×3 (08:05→17:10)
[2019-03-28] MEDS: Multivitamins,Therapeutic Tab PO SCH (08:06)
[2019-03-28] MEDS: Polyethylene Glycol 3350 Powder 17 GM Packet PO SCH (08:06)
[2019-03-28] MEDS: Acetaminophen 500 MG Tab PO SCH ×3 (08:06→22:14)
[2019-03-28] MEDS: Ascorbic Acid 500 MG Tab PO SCH (08:06)
[2019-03-28] MEDS: buPROPion 150 MG Tab.ER PO SCH (08:07)
[2019-03-28] MEDS: Zinc Sulfate 220 MG Cap PO SCH (08:07)
[2019-03-28] MEDS: Cholecalciferol (Vitamin D3) 25 MCG Tab PO SCH (08:07)
--- NOTE | 2019-03-28 14:07 | PCM.PN ---
- General Info Date of Service: 03/28/19 Admission Dx/Problem (Free Text): Patient had care conference yesterday it was mentioned that she may go today or Sunday but most likely Sunday. The [place] [place] [facility] did not get the admission they were expecting today so called to have patient come today. This made the patient very upset and anxious. She did not want to go today, she had not seen the home, told what daily activities would look like. [place] she had "an atomic bomb dropped on her". She also reports that she slept horribly last night, nurses report she finally slept around 2 am. She states she is exhausted which may exacerbating her mental state. She is on Wellbutrin and Celexa at maximum dose and has Hydroxyzine as needed for nausea. She had gone to Orthopedic appt this week and found out that her humerus is not healing and she will require a reverse total shoulder replacement. She is seeing orthopedics again on the to determine when the surgery will be. Patient was told 7 weeks to possibly beginning of next year, but wasn't sure if they were joking or not. The more anxious she is the more nauseous she gets with stomach pain. - Patient Data Vitals - Most Recent: Last Vital Signs Temp 36.8 C 03/28/19 08:00 Pulse 88 03/28/19 08:00 Resp 20 03/28/19 08:00 BP 151/92 H 03/28/19 08:06 Pulse Ox 99 03/28/19 13:00 Weight - Most Recent: 63.548 kg Lab Results Last 24 Hours: Laboratory Results - last 24 hr 03/28/19 Range/Units 05:48 POC Glucose 116 (80-116) mg/dL Med Orders - Current: Current Medications Acetaminophen (Tylenol) 325 mg PO Q6H PRN PRN Reason: Pain/Fever Last Admin: 03/28/19 02:40 Dose: 325 mg Acetaminophen (Tylenol Extra Strength) 1,000 mg PO TID [facility] Last Admin: 03/28/19 13:19 Dose: 1,000 mg Ascorbic Acid (Vitamin C) 1,000 mg PO DAILY [facility] Last Admin: 03/28/19 08:06 Dose: 1,000 mg Aspirin (Ecotrin) 325 mg PO DAILY [facility] Last Admin: 03/28/19 08:05 Dose: 325 mg Atorvastatin Calcium (Lipitor) 40 mg PO DAILY [facility] Last Admin: 03/28/19 08:05 Dose: 40 mg Benazepril HCl (Lotensin) 40 mg PO DAILY [facility] Last Admin: 03/28/19 08:06 Dose: 40 mg Bupropion HCl (Wellbutrin Xl) 150 mg PO DAILY [facility] Last Admin: 03/28/19 08:07 Dose: 150 mg Calcium Carbonate/Glycine (Oyster Shell Calcium) 500 mg PO TIDMEALS [facility] Last Admin: 03/28/19 13:18 Dose: 500 mg Cholecalciferol (Vitamin D3) 25 mcg PO DAILY [facility] Last Admin: 03/28/19 08:07 Dose: 25 mcg Citalopram Hydrobromide (Celexa) 40 mg PO BEDTIME [facility] Last Admin: 03/27/19 20:01 Dose: 40 mg Enoxaparin Sodium (Lovenox) 40 mg SUBCUT Q24H [facility] Stop: 04/01/19 16:01 Last Admin: 03/27/19 16:57 Dose: 40 mg Hydroxyzine Pamoate (Vistaril) 50 mg PO Q6H PRN PRN Reason: Nausea/anxiety Last Admin: 03/27/19 23:35 Dose: 50 mg Ibandronate Sodium (Boniva) 150 mg PO Q30D [facility] Last Admin: 03/18/19 06:12 Dose: 150 mg Magnesium Oxide (Magnesium Oxide) 400 mg PO BIDMEALS [facility] Last Admin: 03/28/19 08:05 Dose: 400 mg Metformin HCl (Glucophage) 500 mg PO BIDMEALS [facility] Last Admin: 03/28/19 08:05 Dose: 500 mg Montelukast Sodium (Singulair) 10 mg PO BEDTIME [facility] Last Admin: 03/27/19 20:01 Dose: 10 mg Multivitamins (Thera) 1 each PO DAILY [facility] Last Admin: 03/28/19 08:06 Dose: 1 each Non-Formulary Medication (.Ozempic) 0.5 mg SUBCUT [place]@2100 [facility] Last Admin: 03/23/19 21:34 Dose: 0.5 mg Ondansetron HCl (Zofran Odt) 4 mg PO Q6H PRN PRN Reason: Nausea/Vomiting Last Admin: 03/26/19 16:51 Dose: 4 mg Oxycodone HCl (Oxycodone) 5 mg PO Q4H PRN PRN Reason: Pain Last Admin: 03/27/19 23:34 Dose: 5 mg Pantoprazole Sodium (Protonix) 40 mg PO DAILY@0600 [facility] Polyethylene Glycol (Miralax) 17 gm PO DAILY [facility] Last Admin: 03/28/19 08:06 Dose: Not Given Simethicone (Simethicone) 80 mg PO QID PRN PRN Reason: GAS Last Admin: 03/26/19 19:34 Dose: 80 mg Zinc Sulfate (Zincate) 220 mg PO DAILY [facility] Last Admin: 03/28/19 08:07 Dose: 220 mg Discontinued Medications Acetaminophen (Tylenol Extra Strength) 500 mg PO TID [facility] Last Admin: 03/09/19 21:44 Dose: 500 mg Desonide (Desonide) 0 gm TOP BID [facility] Last Admin: 03/06/19 08:47 Dose: Not Given Enoxaparin Sodium (Lovenox) 40 mg SUBCUT Q12HR [facility] Fluticasone Propionate (Flonase) 0 gm NASBOTH DAILY [facility] Last Admin: 03/06/19 08:41 Dose: 2 spray Fluticasone Propionate (Flonase) 1 gm NASBOTH BID [facility] Last Admin: 03/06/19 23:30 Dose: 1 gm Fluticasone Propionate (Flonase) 0 gm NASBOTH BID [facility] Last Admin: 03/24/19 20:09 Dose: 1 spray Hydrochlorothiazide (Hydrochlorothiazide) 50 mg PO DAILY [facility] Last Admin: 03/24/19 08:47 Dose: 50 mg Hydrocortisone (Hydrocortisone 2.5% Crm) 0 gm TOP BID [facility] Last Admin: 03/24/19 20:20 Dose: Not Given Oxycodone HCl (Oxycodone) 5 mg PO Q8H PRN PRN Reason: Pain Last Admin: 03/06/19 06:35 Dose: 5 mg Pantoprazole Sodium (Pantoprazole) 20 mg PO 0600 [facility] Last Admin: 03/28/19 05:48 Dose: 20 mg Triamcinolone Acetonide (Oralone 0.1% Dental Paste) 0 gm DENT QID [facility] Last Admin: 03/18/19 08:26 Dose: Not Given Triamcinolone Acetonide (Oralone 0.1% Dental Paste) 0 gm DENT BEDTIME [facility] Last Admin: 03/24/19 20:08 Dose: 1 applicful - Exam General: Alert, Oriented Lungs: Clear to Auscultation, Normal Respiratory Effort Cardiovascular: Regular Rate, Regular Rhythm GI/Abdominal Exam: Normal Bowel Sounds, Soft, No Distention, Tender (epigastric) Extremities: No Pedal Edema, Other (right arm in envelope sling) Psy/Mental Status: Labile Mood, Anxious, Agitated - Problem List & Annotations (1) Right humeral fracture SNOMED Code(s): 07646560 Code(s): S42.301A - UNSP FRACTURE OF SHAFT OF HUMERUS, RIGHT ARM, INIT Status: Acute Current Visit: Yes (2) S/P hip hemiarthroplasty SNOMED Code(s): 176129285, 100817222, 198073310, 027901270 Code(s): Z96.649 - PRESENCE OF UNSPECIFIED ARTIFICIAL HIP JOINT Status: Acute Current Visit: Yes Onset Date: ~02/28/19 (3) Hip fracture, right SNOMED Code(s): 730534634 Code(s): S72.001A - FRACTURE OF UNSP PART OF NECK OF RIGHT FEMUR, INIT Status: Acute Current Visit: Yes (4) Hypertension SNOMED Code(s): 74376343 Code(s): I10 - ESSENTIAL (PRIMARY) HYPERTENSION Status: Acute Current Visit: Yes Qualifiers: Hypertension type: essential hypertension Qualified Code(s): I10 - Essential (primary) hypertension (5) GERD (gastroesophageal reflux disease) SNOMED Code(s): 306734911 Code(s): K21.9 - GASTRO-ESOPHAGEAL REFLUX DISEASE WITHOUT ESOPHAGITIS Status: Acute Current Visit: Yes Qualifiers: Esophagitis presence: esophagitis presence not specified Qualified Code(s) : K21.9 - Gastro-esophageal reflux disease without esophagitis (6) Diabetes SNOMED Code(s): 81972818 Code(s): E11.9 - TYPE 2 DIABETES MELLITUS WITHOUT COMPLICATIONS Status: Acute Current Visit: Yes Qualifiers: Diabetes mellitus type: type 2 Diabetes mellitus snf insulin use: without snf use Diabetes mellitus complication status: without complication Qualified Code(s): E11.9 - Type 2 diabetes mellitus without complications (7) History of CVA (cerebrovascular accident) SNOMED Code(s): 877660390 Code(s): Z86.73 - PRSNL HX OF TIA (TIA), AND CEREB INFRC W/O RESID DEFICITS Status: Acute Current Visit: Yes Onset Date: ~2014 (8) Anxiety SNOMED Code(s): 86310387 Code(s): F41.9 - ANXIETY DISORDER, UNSPECIFIED Status: Acute Current Visit: Yes (9) Gastritis SNOMED Code(s): 6980841 Code(s): K29.70 - GASTRITIS, UNSPECIFIED, WITHOUT BLEEDING Status: Acute Current Visit: Yes - Problem List Review Problem List Initiated/Reviewed/Updated: Yes - My Orders Last 24 Hours: My Active Orders 03/29/19 06:00 Pantoprazole [ProTONIX] 40 mg PO DAILY@0600 - Plan Plan:: Spoke with discharge planning, and [facility]. TRAVIS Valera came over to speak with patient, they are in agreement to wait until Sunday to transfer the patient. PT will be seeing her today and tomorrow. PT will take her over for a tour of the [facility] once she is up from her nap and will get a list of daily activities so she knows what her routine is. Change indication for Hydroxyzine to as needed nausea or anxiety. PCP is Dr Mireles. Once surgery date is set will need preop for clearance.
[2019-03-28] MEDS: Enoxaparin 40 MG/0.4 ML Syringe SUBCUT SCH (17:09)
[2019-03-28] MEDS: Ondansetron 4 MG Tab.DIS PO PRN (21:48)
[2019-03-28] MEDS: Montelukast 10 MG Tab PO SCH (22:14)
[2019-03-28] MEDS: Citalopram 20 MG Tab PO SCH (22:14)
[2019-03-29] MEDS: Pantoprazole 40 MG Tab.CR PO SCH (06:48)
[2019-03-29] MEDS: metFORMIN 500 MG Tab PO SCH ×2 (08:08→17:40)
[2019-03-29] MEDS: Calcium Carbonate 500 MG Tablet PO SCH ×3 (08:08→17:41)
[2019-03-29] MEDS: Aspirin 325 MG Tab.EC PO SCH (08:09)
[2019-03-29] MEDS: atorvaSTATin 40 MG Tab PO SCH (08:09)
[2019-03-29] MEDS: Polyethylene Glycol 3350 Powder 17 GM Packet PO SCH (08:10)
[2019-03-29] MEDS: Acetaminophen 500 MG Tab PO SCH ×3 (08:10→21:55)
[2019-03-29] MEDS: Multivitamins,Therapeutic Tab PO SCH (08:10)
[2019-03-29] MEDS: Ascorbic Acid 500 MG Tab PO SCH (08:11)
[2019-03-29] MEDS: Zinc Sulfate 220 MG Cap PO SCH (08:11)
[2019-03-29] MEDS: Cholecalciferol (Vitamin D3) 25 MCG Tab PO SCH (08:11)
[2019-03-29] MEDS: buPROPion 150 MG Tab.ER PO SCH (08:11)
[2019-03-29] MEDS: Magnesium Oxide 400 MG Tab PO SCH ×2 (08:15→17:41)
[2019-03-29] MEDS ORDERED: Menthol/Methyl Salicylate 114 GM Jar TOP PRN (08:59)
[2019-03-29] MEDS ORDERED: Trolamine Salicylate/Aloe Vera 10% Crm 85 GM Tube TOP PRN (13:53)
[2019-03-29] MEDS: Enoxaparin 40 MG/0.4 ML Syringe SUBCUT SCH (17:41)
[2019-03-29] MEDS: Citalopram 20 MG Tab PO SCH (21:55)
[2019-03-29] MEDS: Montelukast 10 MG Tab PO SCH (21:55)
[2019-03-30] MEDS: Pantoprazole 40 MG Tab.CR PO SCH (05:50)
[2019-03-30] MEDS: metFORMIN 500 MG Tab PO SCH ×2 (08:44→18:20)
[2019-03-30] MEDS: Calcium Carbonate 500 MG Tablet PO SCH ×3 (08:44→18:20)
[2019-03-30] MEDS: Magnesium Oxide 400 MG Tab PO SCH ×2 (08:44→18:20)
[2019-03-30] MEDS: atorvaSTATin 40 MG Tab PO SCH (08:45)
[2019-03-30] MEDS: Polyethylene Glycol 3350 Powder 17 GM Packet PO SCH (08:45)
[2019-03-30] MEDS: Aspirin 325 MG Tab.EC PO SCH (08:45)
[2019-03-30] MEDS: Multivitamins,Therapeutic Tab PO SCH (08:46)
[2019-03-30] MEDS: Acetaminophen 500 MG Tab PO SCH ×3 (08:46→21:02)
[2019-03-30] MEDS: Ascorbic Acid 500 MG Tab PO SCH (08:46)
[2019-03-30] MEDS: Zinc Sulfate 220 MG Cap PO SCH (08:47)
[2019-03-30] MEDS: buPROPion 150 MG Tab.ER PO SCH (08:47)
[2019-03-30] MEDS: Cholecalciferol (Vitamin D3) 25 MCG Tab PO SCH (08:47)
[2019-03-30] MEDS: Ondansetron 4 MG Tab.DIS PO PRN (09:13)
--- NOTE | 2019-03-30 11:00 | PCM.SN ---
- Free Text/Narrative Note: Family requested changing her hydroxyzine to schedule rather than as needed for her anxiety. Discussed that she was at maximum dose of her Celexa and Wellbutrin. Will change and see how she does before going to [facility] tomorrow.
[2019-03-30] MEDS: hydrOXYzine HCl 25 MG Tab PO SCH ×2 (11:36→21:02)
[2019-03-30] MEDS: Enoxaparin 40 MG/0.4 ML Syringe SUBCUT SCH (18:13)
[2019-03-30] MEDS: Montelukast 10 MG Tab PO SCH (21:02)
[2019-03-30] MEDS: Citalopram 20 MG Tab PO SCH (21:02)
[2019-03-30] MEDS: OZEMPIC 0.5 MG SUBCUT SCH (21:03)
[2019-03-31] MEDS: hydrOXYzine HCl 25 MG Tab PO SCH ×2 (03:10→13:09)
[2019-03-31] MEDS ORDERED: Tuberculin, PPD 5 Units/0.1 ML 1 ML MDV IDERM ONE (05:18)
[2019-03-31] MEDS: Pantoprazole 40 MG Tab.CR PO SCH (05:54)
[2019-03-31] MEDS: Aspirin 325 MG Tab.EC PO SCH (09:20)
[2019-03-31] MEDS: atorvaSTATin 40 MG Tab PO SCH (09:20)
[2019-03-31] MEDS: Ascorbic Acid 500 MG Tab PO SCH (09:21)
[2019-03-31] MEDS: metFORMIN 500 MG Tab PO SCH (09:21)
[2019-03-31] MEDS: buPROPion 150 MG Tab.ER PO SCH (09:21)
[2019-03-31] MEDS: Cholecalciferol (Vitamin D3) 25 MCG Tab PO SCH (09:21)
[2019-03-31] MEDS: Acetaminophen 500 MG Tab PO SCH (09:24)
[2019-03-31] MEDS: Magnesium Oxide 400 MG Tab PO SCH (09:24)
[2019-03-31] MEDS: Calcium Carbonate 500 MG Tablet PO SCH ×2 (09:24→13:09)
[2019-03-31] MEDS: Zinc Sulfate 220 MG Cap PO SCH (09:24)
[2019-03-31] MEDS: Multivitamins,Therapeutic Tab PO SCH (09:25)
[2019-03-31 09:27] VITALS: BP 160/104
[2019-03-31] MEDS: Polyethylene Glycol 3350 Powder 17 GM Packet PO SCH (09:30)
[2019-03-31 10:36] VITALS: PULSE 103
[2019-03-31] MEDS: Ondansetron 4 MG Tab.DIS PO PRN (11:32)
--- NOTE | 2019-03-31 16:33 | PCM.DCSUM1 ---
Discharge Summary - Hospital Course HPI Initial Comments: Patient sustained a fall at home last Sunday had right humeral and hip fractures. Was sent to [facility], had a hemiarthroplasty on the right hip but they did non-operative treatment for her right humeral fracture. She was placed in a sling, non-weightbearing on right arm. She is weight bearing on her legs. She is POD#5, hemoglobin was 8.8 this morning in [place]. She had post-op complication of acute blood loss anemia, dropped to 6.9, received 2 units of PRBCs and has been stable in high 8/low 9 since transfusion. She will be on Lovenox 40 mg q24h for 4 weeks postoperative for DVT prophylaxis with bilateral knee high TEDs. Neurology was consulted during her acute stay in [place] due to her history of stroke 4 years ago and was on Aspirin and Plavix for it. Neurology recommended stopping Plavix and restarting her Aspirin 325 mg daily on SundayMar 10. She is on acetaminophen and Oxycodone for pain. MiraLAX for bowel regiment. She had low blood pressure and hyponatremia in [place], hypertension medications(ACEI & HCTZ) were held and were restarted today as her pressures came up to 160s. She had her dressing changed in [place] with Mepilex dressing left on for 7 days then change to dry dressings. She follows up with Ortho on Mar 26 at 1030am. Follow up with her PCP Dr Mckay at [facility] on Mar 19 at 230 pm. She has lab/rad only appts on Mar 14 at 1 & 130 pm at [facility]. She is Diabetic type 2 on oral medications, also Lactose intolerant. Diagnosis: Stroke: No - Discharge Data Discharge Date: 03/31/19 Discharge Disposition: DC/Tfer to [facility] Condition: Good - Referral to Home Health Primary Care Physician: Светлана Mckay MD Skilled Need: PT/OT - Discharge Diagnosis/Problem(s) (1) Right humeral fracture SNOMED Code(s): 55983698 ICD Code: S42.301A - UNSP FRACTURE OF SHAFT OF HUMERUS, RIGHT ARM, INIT Status: Acute (2) S/P hip hemiarthroplasty SNOMED Code(s): 506612267, 870371520, 532778095, 794957004 ICD Code: Z96.649 - PRESENCE OF UNSPECIFIED ARTIFICIAL HIP JOINT Status: Acute Onset Date: ~02/28/19 (3) Hip fracture, right SNOMED Code(s): 138309853 ICD Code: S72.001A - FRACTURE OF UNSP PART OF NECK OF RIGHT FEMUR, INIT Status: Acute (4) Hypertension SNOMED Code(s): 68542714 ICD Code: I10 - ESSENTIAL (PRIMARY) HYPERTENSION Status: Chronic Qualifiers: Hypertension type: essential hypertension Qualified Code(s): I10 - Essential (primary) hypertension (5) GERD (gastroesophageal reflux disease) SNOMED Code(s): 954150356 ICD Code: K21.9 - GASTRO-ESOPHAGEAL REFLUX DISEASE WITHOUT ESOPHAGITIS Status: Chronic Qualifiers: Esophagitis presence: esophagitis presence not specified Qualified Code(s) : K21.9 - Gastro-esophageal reflux disease without esophagitis (6) Diabetes SNOMED Code(s): 89536140 ICD Code: E11.9 - TYPE 2 DIABETES MELLITUS WITHOUT COMPLICATIONS Status: Chronic Qualifiers: Diabetes mellitus type: type 2 Diabetes mellitus fdc insulin use: without buttermaker use Diabetes mellitus complication status: without complication Qualified Code(s): E11.9 - Type 2 diabetes mellitus without complications (7) History of CVA (cerebrovascular accident) SNOMED Code(s): 165363070 ICD Code: Z86.73 - PRSNL HX OF TIA (TIA), AND CEREB INFRC W/O RESID DEFICITS Status: Chronic Onset Date: ~2014 (8) Anxiety SNOMED Code(s): 04433980 ICD Code: F41.9 - ANXIETY DISORDER, UNSPECIFIED Status: Chronic (9) Gastritis SNOMED Code(s): 8623376 ICD Code: K29.70 - GASTRITIS, UNSPECIFIED, WITHOUT BLEEDING Status: Chronic - Patient Summary/Data Consults: Consultations 03/05/19 13:29 OT Evaluation and Treatment [CONS] Routine Please Evaluate and Treat. OT Reason for Consult: ADL's This query below is only for informational purposes and is not editable. PT Evaluation and Treatment [CONS] Routine Please Evaluate and Treat. PT Reason for Consult: Strengthening This query below is only for informational purposes and is not editable. 03/05/19 13:40 Consult to Case Management/Electric Shipyard Operator [CONS] Routine Comment: Physician Instructions: Service(s) to be Consulted: Electric Shipyard Operator Reason for Consult: discharge planning Case Management Specialty/Electric Shipyard Operator: Adjunct Spanish Instructor Special Instructions: Lab/Rad only orders at [facility] on Mar 14 at 1 & 130pm Dr Mckay appt Mar [address] [facility] Lulu Wahl, Asim Martinez PA-C Mar 26 appt at 1030am Hospital Course: Patient was admitted for rehab services on Mar 05, she has been progressing well in regards to her hip, initially reluctant to do therapies due to anxiety about her arm, had repeat x-rays end of Feb which were worrisome for non- healing. Follow up appointment with [facility] last week recommended having shoulder replacement to fix the non-healing fracture. She is follow up on Apr 02 to surgery scheduling. Once surgery date is set then she will need preoperative exam. She was taken off Plavix in [place] by Neurology as she was going to need 28 days of Lovenox and Aspirin 325 mg was started on Mar 10. No mention on Discharge summary if she is to restart the Plavix once she's off Lovenox but with pending surgery will continue to hold. She completed her Lovenox today. She is still requiring some Oxycodone as needed so will be discharge with #20 tablets. Her anxiety was in issue during her stay, hydroxyzine had been added as needed which she took at night and helped with sleep but was not taking during the day. Family requested something scheduled so hydroxyzine was changed to scheduled. Celexa dose is at max and if needed she can go up on the Wellbutrin. She did much better with Hydroxyzine 25 mg twice a day 0800 & 1400 and Hydroxyzine 50 mg at bedtime for insomnia. She requested Dr Mireles for her physician while she is at [facility]. - Patient Instructions Diet: Regular Diet as Tolerated Activity: As Tolerated Showering/Bathing: May Shower Notify Provider of: Fever, Increased Pain, Nausea and/or Vomiting Other/Special Instructions: Follow up in [place] with orthopedics as previously scheduled on Apr 02. Follow up with Dr Mireles within 1-2 weeks. - Discharge Plan *PRESCRIPTION DRUG MONITORING PROGRAM REVIEWED*: No *COPY OF PRESCRIPTION DRUG MONITORING REPORT IN PATIENT OMER: No Prescriptions/Med Rec: hydrOXYzine HCl [hydrOXYzine] 25 mg PO 0800,1400 #60 tablet hydrOXYzine HCl [Hydroxyzine HCl] 50 mg PO BEDTIME #30 tablet Pantoprazole 40 mg PO DAILY #30 tab. Home Medications: Home Meds metFORMIN [Glucophage] 500 mg PO BIDMEALS 10/28/14 [History] .Ozempic 0.5 mg SUBCUT [place]@21 01/24/19 [History] Benazepril [Lotensin] 40 mg PO DAILY 01/24/19 [History] Cholecalciferol (Vitamin D3) [Vitamin D3] 25 mcg PO DAILY 01/24/19 [History] Citalopram Hydrobromide [Celexa] 40 mg PO BEDTIME 01/24/19 [History] Ibandronate Sodium 150 mg PO Q30D 01/24/19 [History] Montelukast Sodium 10 mg PO BEDTIME 01/24/19 [History] atorvaSTATin Calcium [Atorvastatin Calcium] 40 mg PO DAILY 01/24/19 [History] Acetaminophen 325 mg PO Q6H PRN 03/05/19 [History] Ascorbate Calcium [Vitamin C] 1,000 mg PO DAILY 03/05/19 [History] Aspirin [Aspirin EC] 325 mg PO DAILY 03/05/19 [History] Calcium Carbonate [Calcium] 500 mg PO TID 03/05/19 [History] Magnesium Oxide 400 mg PO BIDMEALS 03/05/19 [History] Multivitamins,Therapeutic [Thera] 1 tab PO DAILY 03/05/19 [History] Polyethylene Glycol 3350 [MiraLAX] 17 gm PO DAILY 03/05/19 [History] Zinc Gluconate [Zinc] 50 mg PO DAILY 03/05/19 [History] buPROPion [buPROPion XL] 150 mg PO DAILY 03/05/19 [History] oxyCODONE 5 mg PO Q8H PRN 03/05/19 [History] Acetaminophen [Tylenol Extra Strength] 1,000 mg PO TID tablet 03/31/19 [Rx] Pantoprazole 40 mg PO DAILY #30 tab. 03/31/19 [Rx] Trolamine Salicylate/Aloe Vera [Aspercreme 10%] 0 gm TOP QID PRN tube 03/31/19 [Rx] hydrOXYzine HCl [Hydroxyzine HCl] 50 mg PO BEDTIME #30 tablet 03/31/19 [Rx] hydrOXYzine HCl [hydrOXYzine] 25 mg PO 0800,1400 #60 tablet 03/31/19 [Rx] Oxygen Therapy Mode: Room Air Patient Handouts: Total Hip Replacement, Fall Prevention in Hospitals, Adult, Venous Thromboembolism Prevention Referrals: Elver Mireles MD [Physician] - - Discharge Summary/Plan Comment DC Time >30 min.: Yes - Patient Data Vitals - Most Recent: Last Vital Signs Temp 36.4 C 03/31/19 08:00 Pulse 103 H 03/31/19 08:00 Resp 14 03/31/19 08:00 BP 160/104 H 03/31/19 09:21 Pulse Ox 94 L 03/31/19 08:00 Weight - Most Recent: 60.872 kg Lab Results - Last 24 hrs: Laboratory Results - last 24 hr 03/31/19 Range/Units 05:57 POC Glucose 100 (80-116) mg/dL Med Orders - Current: Current Medications Discontinued Medications Acetaminophen (Tylenol) 325 mg PO Q6H PRN PRN Reason: Pain/Fever Last Admin: 03/28/19 02:40 Dose: 325 mg Acetaminophen (Tylenol Extra Strength) 500 mg PO TID [facility] Last Admin: 03/09/19 21:44 Dose: 500 mg Acetaminophen (Tylenol Extra Strength) 1,000 mg PO TID [facility] Last Admin: 03/31/19 09:24 Dose: 1,000 mg Ascorbic Acid (Vitamin C) 1,000 mg PO DAILY [facility] Last Admin: 03/31/19 09:21 Dose: 1,000 mg Aspirin (Ecotrin) 325 mg PO DAILY [facility] Last Admin: 03/31/19 09:20 Dose: 325 mg Atorvastatin Calcium (Lipitor) 40 mg PO DAILY [facility] Last Admin: 03/31/19 09:20 Dose: 40 mg Benazepril HCl (Lotensin) 40 mg PO DAILY [facility] Last Admin: 03/31/19 09:21 Dose: 40 mg Bupropion HCl (Wellbutrin Xl) 150 mg PO DAILY [facility] Last Admin: 03/31/19 09:21 Dose: 150 mg Calcium Carbonate/Glycine (Oyster Shell Calcium) 500 mg PO TIDMEALS [facility] Last Admin: 03/31/19 13:09 Dose: Not Given Cholecalciferol (Vitamin D3) 25 mcg PO DAILY [facility] Last Admin: 03/31/19 09:21 Dose: 25 mcg Citalopram Hydrobromide (Celexa) 40 mg PO BEDTIME [facility] Last Admin: 03/30/19 21:02 Dose: 40 mg Desonide (Desonide) 0 gm TOP BID [facility] Last Admin: 03/06/19 08:47 Dose: Not Given Enoxaparin Sodium (Lovenox) 40 mg SUBCUT Q12HR [facility] Enoxaparin Sodium (Lovenox) 40 mg SUBCUT Q24H [facility] Stop: 04/01/19 16:01 Last Admin: 03/30/19 18:13 Dose: 40 mg Fluticasone Propionate (Flonase) 0 gm NASBOTH DAILY [facility] Last Admin: 03/06/19 08:41 Dose: 2 spray Fluticasone Propionate (Flonase) 1 gm NASBOTH BID [facility] Last Admin: 03/06/19 23:30 Dose: 1 gm Fluticasone Propionate (Flonase) 0 gm NASBOTH BID [facility] Last Admin: 03/24/19 20:09 Dose: 1 spray Hydrochlorothiazide (Hydrochlorothiazide) 50 mg PO DAILY [facility] Last Admin: 03/24/19 08:47 Dose: 50 mg Hydrocortisone (Hydrocortisone 2.5% Crm) 0 gm TOP BID [facility] Last Admin: 03/24/19 20:20 Dose: Not Given Hydroxyzine HCl (Atarax) 25 mg PO Q8H [facility] Last Admin: 03/31/19 13:09 Dose: Not Given Hydroxyzine Pamoate (Vistaril) 50 mg PO Q6H PRN PRN Reason: Nausea/anxiety Last Admin: 03/29/19 23:28 Dose: 50 mg Ibandronate Sodium (Boniva) 150 mg PO Q30D [facility] Last Admin: 03/18/19 06:12 Dose: 150 mg Magnesium Oxide (Magnesium Oxide) 400 mg PO BIDMEALS [facility] Last Admin: 03/31/19 09:24 Dose: 400 mg Metformin HCl (Glucophage) 500 mg PO BIDMEALS [facility] Last Admin: 03/31/19 09:21 Dose: 500 mg Methyl Salicylate (Pain Relieving Rub Cream) 0 gm TOP QID PRN PRN Reason: muscle pain Montelukast Sodium (Singulair) 10 mg PO BEDTIME [facility] Last Admin: 03/30/19 21:02 Dose: 10 mg Multivitamins (Thera) 1 each PO DAILY [facility] Last Admin: 03/31/19 09:25 Dose: 1 each Non-Formulary Medication (.Ozempic) 0.5 mg SUBCUT [place]@2100 [facility] Last Admin: 03/30/19 21:03 Dose: 0.5 mg Ondansetron HCl (Zofran Odt) 4 mg PO Q6H PRN PRN Reason: Nausea/Vomiting Last Admin: 03/31/19 11:32 Dose: 4 mg Oxycodone HCl (Oxycodone) 5 mg PO Q8H PRN PRN Reason: Pain Last Admin: 03/06/19 06:35 Dose: 5 mg Oxycodone HCl (Oxycodone) 5 mg PO Q4H PRN PRN Reason: Pain Last Admin: 03/27/19 23:34 Dose: 5 mg Pantoprazole Sodium (Pantoprazole) 20 mg PO 0600 [facility] Last Admin: 03/28/19 05:48 Dose: 20 mg Pantoprazole Sodium (Protonix) 40 mg PO DAILY@0600 [facility] Last Admin: 03/31/19 05:54 Dose: 40 mg Polyethylene Glycol (Miralax) 17 gm PO DAILY [facility] Last Admin: 03/31/19 09:30 Dose: Not Given Simethicone (Simethicone) 80 mg PO QID PRN PRN Reason: GAS Last Admin: 03/26/19 19:34 Dose: 80 mg Triamcinolone Acetonide (Oralone 0.1% Dental Paste) 0 gm DENT QID [facility] Last Admin: 03/18/19 08:26 Dose: Not Given Triamcinolone Acetonide (Oralone 0.1% Dental Paste) 0 gm DENT BEDTIME [facility] Last Admin: 03/24/19 20:08 Dose: 1 applicful Trolamine Salicylate (Aspercreme 10%) 0 gm TOP QID PRN PRN Reason: muscle pain Tuberculin PPD (Aplisol) 5 unit IDERM ONETIME ONE Stop: 03/31/19 05:19 Last Admin: 03/31/19 09:20 Dose: 5 unit Zinc Sulfate (Zincate) 220 mg PO DAILY [facility] Last Admin: 03/31/19 09:24 Dose: 220 mg - Exam General: Reports: Alert, Oriented, Cooperative Lungs: Reports: Clear to Auscultation, Normal Respiratory Effort Cardiovascular: Reports: Regular Rate, Regular Rhythm GI/Abdominal Exam: Normal Bowel Sounds, Soft, Non-Tender, No Distention Extremities: No Pedal Edema Skin: Reports: Warm, Dry, Intact Psy/Mental Status: Reports: Alert, Normal Affect, Normal Mood
== END 2019-03-31 11:35 | DRG 562 ==
LOC: FB.MS 12:43
PROVIDERS: ADMIT Family Medicine; ATTEND Family Medicine
DX: S42.211A Unspecified displaced fracture of surgical neck of right humerus, initial encounter for closed fracture (principal); S72.031A Displaced midcervical fracture of right femur, initial encounter for closed fracture; I10 Essential (primary) hypertension; K21.9 Gastro-esophageal reflux disease without esophagitis; E11.9 Type 2 diabetes mellitus without complications; F41.9 Anxiety disorder, unspecified; K29.70 Gastritis, unspecified, without bleeding; H54.7 Unspecified visual loss; E78.00 Pure hypercholesterolemia, unspecified; E73.9 Lactose intolerance, unspecified; G89.29 Other chronic pain; M54.9 Dorsalgia, unspecified; F32.9 Major depressive disorder, single episode, unspecified; E66.9 Obesity, unspecified; E78.2 Mixed hyperlipidemia; M85.80 Other specified disorders of bone density and structure, unspecified site; M81.0 Age-related osteoporosis without current pathological fracture; G47.00 Insomnia, unspecified; Z86.73 Personal history of transient ischemic attack (TIA), and cerebral infarction without residual deficits; Z79.899 Other long term (current) drug therapy; Z79.84 Long term (current) use of oral hypoglycemic drugs; Z79.82 Long term (current) use of aspirin; Z87.891 Personal history of nicotine dependence; Z96.641 Presence of right artificial hip joint; Z88.5 Allergy status to narcotic agent; Z88.8 Allergy status to other drugs, medicaments and biological substances; Z91.048 Other nonmedicinal substance allergy status; Z91.09 Other allergy status, other than to drugs and biological substances; W19.XXXA Unspecified fall, initial encounter; Y92.009 Unspecified place in unspecified non-institutional (private) residence as the place of occurrence of the external cause
CPT/HCPCS: 36415; 73060-RT; 81001; 82962; 85014; 85018; 86580; 97110-GO; 97110-GP; 97113-GO; 97116-GP; 97161-GP; 97165-GO; 97530-GO; 97530-GP; 97535-GO; 97542-GO; A9270-GY; J1650

== ENCOUNTER 2019-05-18 17:03 | Emergency (ER) | payer MEDICARE ==
[2019-05-18] MEDS: Acetaminophen 500 MG Tab PO ONE (18:49)
--- NOTE | 2019-05-18 19:14 | EDM.PDOC ---
ED HPI GENERAL MEDICAL PROBLEM - General Chief Complaint: Upper Extremity Injury/Pain Stated Complaint: SLIPPED AND FELL Time Seen by Provider: 05/18/19 17:15 Source of Information: Reports: Patient History Limitations: Reports: No Limitations - History of Present Illness INITIAL COMMENTS - FREE TEXT/NARRATIVE: c/o R shoulder pain in assisted living, trying to get out of bed, pulling herself up with her good LUE (RUE in sling) and fell back into bed, has pain in her R shoulder which is chronic since her joint replacement 10 wk ago, hurts more now across the front had a fall on 02-16-19 trying to move a door off of a nahed, fx her R shoulder and R hip, had hip surgery the next day and shoulder surgery the end of the month had been on rehab, return to [place] 2d ago states that her bed is in her room backward and that the railing is against the wall, which she should d/w the [place] facility has apt at 1p tomorrow with Dr Mckay has WBC 16k today, apparently d/t her mild dehydration (ketones 15 mg/dl), her pain, and a low grade UTI (5-10 WBC/hpf with rare epi's). Will need to be followed by her PCP R shoulder Pain Score (Numeric/FACES): 10 - Related Data Allergies Allergy/AdvReac Type Severity Reaction Status Date / Time amitriptyline Allergy Cannot Verified 05/18/19 17:10 Remember codeine Allergy Cannot Verified 05/18/19 17:10 Remember tetracycline Allergy Cannot Verified 05/18/19 17:10 Remember Home Meds: Home Meds metFORMIN [Glucophage] 500 mg PO BIDMEALS 10/28/14 [History] .Ozempic 0.5 mg SUBCUT DUNBAR@21 01/24/19 [History] Benazepril [Lotensin] 40 mg PO DAILY 01/24/19 [History] Cholecalciferol (Vitamin D3) [Vitamin D3] 25 mcg PO DAILY 01/24/19 [History] Citalopram Hydrobromide [Celexa] 40 mg PO BEDTIME 01/24/19 [History] Ibandronate Sodium 150 mg PO Q30D 01/24/19 [History] Montelukast Sodium 10 mg PO BEDTIME 01/24/19 [History] atorvaSTATin Calcium [Atorvastatin Calcium] 40 mg PO DAILY 01/24/19 [History] Acetaminophen 325 mg PO Q6H PRN 03/05/19 [History] Ascorbate Calcium [Vitamin C] 1,000 mg PO DAILY 03/05/19 [History] Aspirin [Aspirin EC] 325 mg PO DAILY 03/05/19 [History] Calcium Carbonate [Calcium] 500 mg PO TID 03/05/19 [History] Magnesium Oxide 400 mg PO BIDMEALS 03/05/19 [History] Multivitamins,Therapeutic [Thera] 1 tab PO DAILY 03/05/19 [History] Polyethylene Glycol 3350 [MiraLAX] 17 gm PO DAILY 03/05/19 [History] Zinc Gluconate [Zinc] 50 mg PO DAILY 03/05/19 [History] buPROPion [buPROPion XL] 150 mg PO DAILY 03/05/19 [History] oxyCODONE 5 mg PO Q8H PRN 03/05/19 [History] Acetaminophen [Tylenol Extra Strength] 1,000 mg PO TID tablet 03/31/19 [Rx] Pantoprazole 40 mg PO DAILY #30 tab.dr 03/31/19 [Rx] Trolamine Salicylate/Aloe Vera [Aspercreme 10%] 0 gm TOP QID PRN tube 03/31/19 [Rx] hydrOXYzine HCl [Hydroxyzine HCl] 50 mg PO BEDTIME #30 tablet 03/31/19 [Rx] hydrOXYzine HCl [hydrOXYzine] 25 mg PO 0800,1400 #60 tablet 03/31/19 [Rx] Amoxicillin/Potassium Clav [Augmentin 875-125 Tablet] 1 each PO BID #14 tablet 05/18/19 [Rx] traMADol [Ultram] 50 mg PO Q6H PRN #8 tab 05/18/19 [Rx] Past Medical History HEENT History: Reports: Impaired Vision Cardiovascular History: Reports: High Cholesterol, Hypertension, SOB on Exertion Respiratory History: Reports: SOB Gastrointestinal History: Reports: Gastritis, GERD, Other (See Below) Other Gastrointestinal History: Lactose 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 Endocrine/Metabolic History: Reports: Diabetes, Type II Hematologic History: Reports: Blood Transfusion(s) Dermatologic History: Reports: Other (See Below) Other Dermatologic History: RASH AND C\O OF SOME ITCHING AT TIMES WITH A RASH. - Infectious Disease History Infectious Disease History: Reports: Chicken Pox, Shingles - Past Surgical History Head Surgeries/Procedures: Reports: Other (See Below) Cardiovascular Surgical History: Reports: None Respiratory Surgical History: Reports: None GI Surgical History: Reports: Colonoscopy Endocrine Surgical History: Reports: None Neurological Surgical History: Reports: Other (See Below) Other Neurological Surgeries/Procedures: PT HAD SURGERY ON RIGHT SIDE OF FACE IN FRONT OF HER EAR IN PAST. Musculoskeletal Surgical History: Reports: Hip Replacement, Shoulder Surgery, Other (See Below) Other Musculoskeletal Surgeries/Procedures:: FRACTURED HUMERUS CURRENTLY AND S\ P RIGHT HIP REPLACEMENT ON 02/28/2019 ON HIP Dermatological Surgical History: Reports: None - Past Imaging History Past Imaging History: Reports: Cardiac Echo (10/04/2018) Social & Family History - Family History Family Medical History: Noncontributory Cardiac: Reports: CAD, [place] Other OBGYN Family History: Breast cancer: Paternal aunt Neurological: Reports: CVA Psychiatric: Reports: Other (See Below) - Tobacco Use Smoking Status *Q: Never Smoker - Caffeine Use Caffeine Use: Reports: Coffee - Recreational Drug Use Recreational Drug Use: No - Living Situation & Occupation Living situation: Reports: Alone Occupation: Retired Review of Systems - Review of Systems Review Of Systems: See Below Constitutional: Reports: No Symptoms Eyes: Reports: No Symptoms Ears: Reports: No Symptoms Nose: Reports: No Symptoms Mouth/Throat: Reports: No Symptoms Respiratory: Reports: No Symptoms Cardiovascular: Reports: No Symptoms GI/Abdominal: Reports: No Symptoms Genitourinary: Reports: No Symptoms Musculoskeletal: Reports: Arm Pain Skin: Reports: No Symptoms Neurological: Reports: No Symptoms Psychiatric: Reports: No Symptoms ED EXAM, GENERAL - Physical Exam Exam: See Below Exam Limited By: No Limitations General Appearance: Alert, WD/WN, No Apparent Distress Ears: Normal External Exam Nose: Normal Inspection Throat/Mouth: Normal Inspection Head: Atraumatic Neck: Normal Inspection, Supple, Non-Tender, Full Range of Motion. No: Lymphadenopathy (R), Lymphadenopathy (L) Respiratory/Chest: No Respiratory Distress, Lungs Clear, Normal Breath Sounds Cardiovascular: Regular Rate, Rhythm, No Edema, No JVD, No Murmur, No Rub GI/Abdominal: Soft, Non-Tender Back Exam: Normal Inspection Extremities: Other (RUE in sling, nonspecific mild tender across anterior R shoulder, nonlocalized, healing old surgical scar, no ecchymosis, no inc'd AC tender) Neurological: Alert, Oriented, CN II-XII Intact, Normal Cognition, No Motor/ Sensory Deficits Psychiatric: Anxious Skin Exam: Warm, Dry, Intact, Normal Color, No Rash Lymphatic: No Adenopathy Course - Vital Signs Last Recorded V/S: Last Vital Signs Temp 36.7 C 05/18/19 17:03 Pulse 98 05/18/19 17:03 Resp 20 05/18/19 17:03 BP 167/103 H 05/18/19 17:03 Pulse Ox 100 05/18/19 17:03 - Orders/Labs/Meds Orders: Active Orders 24 hr Category Date Time Status Hip Min 1V w Pelvis Rt [CR] Stat Exams 05/18/19 17:12 Ordered Shoulder Comp Rt [CR] Stat Exams 05/18/19 17:12 Taken CULTURE URINE [RM] Stat Lab 05/18/19 18:51 Ordered Acetaminophen [Tylenol Extra Strength] Med 05/18/19 18:40 Once 1,000 mg PO ONETIME ONE Amoxicillin/Clavulanate K [Augmentin 875 MG/125 MG] Med 05/18/19 19:08 Once 1 tab PO ONETIME ONE traMADol [Ultram] Med 05/18/19 19:08 Once 50 mg PO ONETIME ONE Medication Orders Acetaminophen (Tylenol Extra Strength) 1,000 mg PO ONETIME ONE Stop: 05/18/19 18:41 Last Admin: 05/18/19 18:49 Dose: 1,000 mg Labs: Laboratory Tests 05/18/19 05/18/19 05/18/19 Range/Units 17:20 17:20 17:20 WBC 16.7 H (4.5-12.0) X10-3/uL RBC 3.85 (3.23-5.20) x10(6)uL Hgb 11.2 L (11.5-15.5) g/dL Hct 33.0 (30.0-51.3) % MCV 85.5 (80-96) fL MCH 29.0 (27.7-33.6) pg MCHC 33.9 (32.2-35.4) g/dL RDW 13.4 (11.5-15.5) % Plt Count 312 (125-369) X10(3)uL MPV 8.5 (7.4-10.4) fL Neut % (Auto) 84.8 H (46-82) % Lymph % (Auto) 7.7 L (13-37) % [place] % (Auto) 6.6 (4-12) % Eos % (Auto) 1 (1.0-5.0) % Baso % (Auto) 0 (0-2) % Neut # (Auto) 14.2 H (1.6-8.3) # Lymph # (Auto) 1.3 (0.6-5.0) # [place] # (Auto) 1.1 (0.0-1.3) # Eos # (Auto) 0.1 (0.0-0.8) # Baso # (Auto) 0.0 (0.0-0.2) # Sodium 135 (135-145) mmol/L Potassium 3.6 (3.5-5.3) mmol/L Chloride 100 (100-110) mmol/L Carbon Dioxide 22 (21-32) mmol/L BUN 19 H (7-18) mg/dL Creatinine 0.9 (0.55-1.02) mg/dL Est Cr Clr Drug Dosing 40.13 mL/min Estimated GFR (MDRD) > 60 (>60) BUN/Creatinine Ratio 21.1 H (9-20) Glucose 129 H (80-116) mg/dL Calcium 9.3 (8.6-10.2) mg/dL Magnesium 1.5 L (1.8-2.5) mg/dL Total Bilirubin 0.6 (0.1-1.3) mg/dL AST 17 D (5-25) IU/L ALT 26 D (12-36) U/L Alkaline Phosphatase 113 H (56-112) IU/L C-Reactive Protein 1.4 H (0.5-0.9) mg/dL Total Protein 7.1 (6.0-8.0) g/dL Albumin 3.9 (3.2-4.6) g/dL Globulin 3.2 g/dL Albumin/Globulin Ratio 1.2 Urine Color (YELLOW) Urine Appearance (CLEAR) Urine pH (5.0-6.5) Ur Specific [place] (1.010-1.025) Urine Protein (NEGATIVE) mg/dL Urine Glucose (UA) (NORMAL) mg/dL Urine Ketones (NEGATIVE) mg/dL Urine Occult Blood (NEGATIVE) Urine Nitrite (NEGATIVE) Urine Bilirubin (NEGATIVE) Urine Urobilinogen (NEGATIVE) mg/dL Ur Leukocyte Esterase (NEGATIVE) Urine RBC (0-5) Urine WBC (0-5) Ur Squamous Epith Cells (NS,R,O) Urine Bacteria (NS) Urine Mucus (NS) 05/18/19 Range/Units 18:35 WBC (4.5-12.0) X10-3/uL RBC (3.23-5.20) x10(6)uL Hgb (11.5-15.5) g/dL Hct (30.0-51.3) % MCV (80-96) fL MCH (27.7-33.6) pg MCHC (32.2-35.4) g/dL RDW (11.5-15.5) % Plt Count (125-369) X10(3)uL MPV (7.4-10.4) fL Neut % (Auto) (46-82) % Lymph % (Auto) (13-37) % [place] % (Auto) (4-12) % Eos % (Auto) (1.0-5.0) % Baso % (Auto) (0-2) % Neut # (Auto) (1.6-8.3) # Lymph # (Auto) (0.6-5.0) # [place] # (Auto) (0.0-1.3) # Eos # (Auto) (0.0-0.8) # Baso # (Auto) (0.0-0.2) # Sodium (135-145) mmol/L Potassium (3.5-5.3) mmol/L Chloride (100-110) mmol/L Carbon Dioxide (21-32) mmol/L BUN (7-18) mg/dL Creatinine (0.55-1.02) mg/dL Est Cr Clr Drug Dosing mL/min Estimated GFR (MDRD) (>60) BUN/Creatinine Ratio (9-20) Glucose (80-116) mg/dL Calcium (8.6-10.2) mg/dL Magnesium (1.8-2.5) mg/dL Total Bilirubin (0.1-1.3) mg/dL AST (5-25) IU/L ALT (12-36) U/L Alkaline Phosphatase (56-112) IU/L C-Reactive Protein (0.5-0.9) mg/dL Total Protein (6.0-8.0) g/dL Albumin (3.2-4.6) g/dL Globulin g/dL Albumin/Globulin Ratio Urine Color Yellow (YELLOW) Urine Appearance Slightly cloudy (CLEAR) Urine pH 5.0 (5.0-6.5) Ur Specific [place] 1.020 (1.010-1.025) Urine Protein Trace (NEGATIVE) mg/dL Urine Glucose (UA) Normal (NORMAL) mg/dL Urine Ketones 15 H (NEGATIVE) mg/dL Urine Occult Blood Negative (NEGATIVE) Urine Nitrite Negative (NEGATIVE) Urine Bilirubin Small H (NEGATIVE) Urine Urobilinogen 1 H (NEGATIVE) mg/dL Ur Leukocyte Esterase Small H (NEGATIVE) Urine RBC 0-5 (0-5) Urine WBC 5-10 H (0-5) Ur Squamous Epith Cells Few H (NS,R,O) Urine Bacteria Rare H (NS) Urine Mucus Few H (NS) Meds: Medications Generic Name Dose Route Start Last Admin Trade Name Davidq PRN Reason Stop Dose Admin Acetaminophen 1,000 mg 05/18/19 18:40 05/18/19 18:49 Tylenol Extra Strength PO 05/18/19 18:41 1,000 mg ONETIME ONE Administration - Re-Assessments/Exams Free Text/Narrative Re-Assessment/Exam: 05/18/19 19:14 XR R shoulder neg per radiology, will rx Augmentin 875/125 BID x 7d for presumed UTI, no other apparent source, lungs clear, no pul sxs, skin neg CRP and alk phos mild inc'd c/w post-op changes Departure - Departure Time of Disposition: 19:16 Disposition: Home, Self-Care 01 Condition: Good Clinical Impression: Sprain of right shoulder, Dehydration, Urinary tract infection, Leukocytosis - Discharge Information *PRESCRIPTION DRUG MONITORING PROGRAM REVIEWED*: Not Applicable *COPY OF PRESCRIPTION DRUG MONITORING REPORT IN PATIENT OMER: Not Applicable Prescriptions: Amoxicillin/Potassium Clav [Augmentin 875-125 Tablet] 1 each PO BID #14 tablet traMADol [Ultram] 50 mg PO Q6H PRN #8 tab PRN Reason: Pain Instructions: Shoulder Sprain, Urinary Tract Infection, Adult Additional Instructions: For infection, take Augmentin 875/125 mg 1 tab 2 times a day for 7 days. For pain, take acetaminophen 500 mg 2 tabs 4 times a day for 7 days. For pain, use ice for 10 minutes every 2 hours while awake as needed. For pain, take tramadol 50 mg 1 tab every 6 hours as needed. No alcohol. Increase fluids. Use your sling, as you have been doing. See your doctor in 1-2 days. - My Orders Last 24 Hours: My Active Orders 05/18/19 17:12 Hip Min 1V w Pelvis Rt [CR] Stat Shoulder Comp Rt [CR] Stat 05/18/19 18:40 Acetaminophen [Tylenol Extra Strength] 1,000 mg PO ONETIME ONE 05/18/19 18:51 CULTURE URINE [RM] Stat 05/18/19 19:08 Amoxicillin/Clavulanate K [Augmentin 875 MG/125 MG] 1 tab PO ONETIME ONE traMADol [Ultram] 50 mg PO ONETIME ONE - Assessment/Plan Last 24 Hours: My Active Orders 05/18/19 17:12 Hip Min 1V w Pelvis Rt [CR] Stat Shoulder Comp Rt [CR] Stat 05/18/19 18:40 Acetaminophen [Tylenol Extra Strength] 1,000 mg PO ONETIME ONE 05/18/19 18:51 CULTURE URINE [RM] Stat 05/18/19 19:08 Amoxicillin/Clavulanate K [Augmentin 875 MG/125 MG] 1 tab PO ONETIME ONE traMADol [Ultram] 50 mg PO ONETIME ONE
[2019-05-18] MEDS: traMADol 50 MG Tab PO ONE (19:20)
[2019-05-18] MEDS: Amoxicillin/Clavulanate K 875-125 MG Tab PO ONE (19:20)
[2019-05-18 20:26] VITALS: BP 146/77; PULSE 95
== END 2019-05-18 21:03 | disposition home or self-care (01) ==
LOC: FB.ED 17:03
DX: S43.401A Unspecified sprain of right shoulder joint, initial encounter (principal); E86.0 Dehydration; N39.0 Urinary tract infection, site not specified; D72.829 Elevated white blood cell count, unspecified; E78.00 Pure hypercholesterolemia, unspecified; I10 Essential (primary) hypertension; K21.9 Gastro-esophageal reflux disease without esophagitis; E11.9 Type 2 diabetes mellitus without complications; F32.9 Major depressive disorder, single episode, unspecified; Z88.8 Allergy status to other drugs, medicaments and biological substances; Z88.5 Allergy status to narcotic agent; Z88.1 Allergy status to other antibiotic agents; Z79.82 Long term (current) use of aspirin; Z79.84 Long term (current) use of oral hypoglycemic drugs; Z79.899 Other long term (current) drug therapy; Z86.73 Personal history of transient ischemic attack (TIA), and cerebral infarction without residual deficits; W06.XXXA Fall from bed, initial encounter
CPT/HCPCS: 36415; 73030; 80053; 81001; 83735; 85025; 86140; 87086; 99284; A9270

== ENCOUNTER 2019-07-01 14:45 | Emergency (ER) | payer MEDICARE ==
[2019-07-01] MEDS ORDERED: Ketorolac 30 MG/ML SDV IM ONE (15:29)
--- NOTE | 2019-07-01 15:41 | EDM.PDOC ---
ED HPI GENERAL MEDICAL PROBLEM - General Chief Complaint: Lower Extremity Injury/Pain Stated Complaint: HI PAIN Time Seen by Provider: 07/01/19 15:25 Source of Information: Reports: Patient History Limitations: Reports: No Limitations - History of Present Illness INITIAL COMMENTS - FREE TEXT/NARRATIVE: had surgery on the right hip in feb , had been doing well till 2 weeks ago when she developed pain in the hip. states she did not fall . Today she states she was sitting and just stood up when the pain got worse has pain radiating right hip Pain Score (Numeric/FACES): 10 - Related Data Allergies Allergy/AdvReac Type Severity Reaction Status Date / Time amitriptyline Allergy Cannot Verified 05/18/19 17:10 Remember codeine Allergy Cannot Verified 05/18/19 17:10 Remember tetracycline Allergy Cannot Verified 05/18/19 17:10 Remember Home Meds: Home Meds metFORMIN [Glucophage] 500 mg PO BIDMEALS 10/28/14 [History] .Ozempic 0.5 mg SUBCUT DUNBAR@21 01/24/19 [History] Benazepril [Lotensin] 40 mg PO DAILY 01/24/19 [History] Cholecalciferol (Vitamin D3) [Vitamin D3] 25 mcg PO DAILY 01/24/19 [History] Citalopram Hydrobromide [Celexa] 40 mg PO BEDTIME 01/24/19 [History] Ibandronate Sodium 150 mg PO Q30D 01/24/19 [History] Montelukast Sodium 10 mg PO BEDTIME 01/24/19 [History] atorvaSTATin Calcium [Atorvastatin Calcium] 40 mg PO DAILY 01/24/19 [History] Acetaminophen 325 mg PO Q6H PRN 03/05/19 [History] Ascorbate Calcium [Vitamin C] 1,000 mg PO DAILY 03/05/19 [History] Aspirin [Aspirin EC] 325 mg PO DAILY 03/05/19 [History] Calcium Carbonate [Calcium] 500 mg PO TID 03/05/19 [History] Magnesium Oxide 400 mg PO BIDMEALS 03/05/19 [History] Multivitamins,Therapeutic [Thera] 1 tab PO DAILY 03/05/19 [History] Polyethylene Glycol 3350 [MiraLAX] 17 gm PO DAILY 03/05/19 [History] Zinc Gluconate [Zinc] 50 mg PO DAILY 03/05/19 [History] buPROPion [buPROPion XL] 150 mg PO DAILY 03/05/19 [History] oxyCODONE 5 mg PO Q8H PRN 03/05/19 [History] Acetaminophen [Tylenol Extra Strength] 1,000 mg PO TID tablet 03/31/19 [Rx] Pantoprazole 40 mg PO DAILY #30 tab.dr 03/31/19 [Rx] Trolamine Salicylate/Aloe Vera [Aspercreme 10%] 0 gm TOP QID PRN tube 03/31/19 [Rx] hydrOXYzine HCL [Hydroxyzine HCl] 50 mg PO BEDTIME #30 tablet 03/31/19 [Rx] hydrOXYzine HCL [hydrOXYzine] 25 mg PO 0800,1400 #60 tablet 03/31/19 [Rx] Amoxicillin/Potassium Clav [Augmentin 875-125 Tablet] 1 each PO BID #14 tablet 05/18/19 [Rx] traMADol [Ultram] 50 mg PO Q6H PRN #8 tab 05/18/19 [Rx] Past Medical History HEENT History: Reports: Impaired Vision Cardiovascular History: Reports: High Cholesterol, Hypertension, SOB on Exertion Respiratory History: Reports: SOB Gastrointestinal History: Reports: Gastritis, GERD, Other (See Below) 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 Endocrine/Metabolic History: Reports: Diabetes, Type II Hematologic History: Reports: Blood Transfusion(s) Dermatologic History: Reports: Other (See Below) Other Dermatologic History: RASH AND C\O OF SOME ITCHING AT TIMES WITH A RASH. - Infectious Disease History Infectious Disease History: Reports: Chicken Pox, Shingles - Past Surgical History Head Surgeries/Procedures: Reports: Other (See Below) Cardiovascular Surgical History: Reports: None Respiratory Surgical History: Reports: None GI Surgical History: Reports: Colonoscopy Endocrine Surgical History: Reports: None Neurological Surgical History: Reports: Other (See Below) Other Neurological Surgeries/Procedures: PT HAD SURGERY ON RIGHT SIDE OF FACE IN FRONT OF HER EAR IN PAST. Musculoskeletal Surgical History: Reports: Hip Replacement, Shoulder Surgery, Other (See Below) Other Musculoskeletal Surgeries/Procedures:: FRACTURED HUMERUS CURRENTLY AND S\ P RIGHT HIP REPLACEMENT ON 02/28/2019 ON HIP Dermatological Surgical History: Reports: None - Past Imaging History Past Imaging History: Reports: Cardiac Echo (10/04/2018) Social & Family History - Family History Family Medical History: Noncontributory Cardiac: Reports: CAD, [place] Other OBGYN Family History: Breast cancer: Paternal aunt Neurological: Reports: CVA Psychiatric: Reports: Other (See Below) - Caffeine Use Caffeine Use: Reports: Coffee - Living Situation & Occupation Living situation: Reports: Alone Occupation: Retired Review of Systems - Review of Systems Review Of Systems: See Below Constitutional: Reports: No Symptoms Eyes: Reports: No Symptoms Ears: Reports: No Symptoms Nose: Reports: No Symptoms Mouth/Throat: Reports: No Symptoms Respiratory: Reports: No Symptoms Cardiovascular: Reports: No Symptoms GI/Abdominal: Reports: No Symptoms Musculoskeletal: Reports: Shoulder Pain (right sided), Joint Pain (right hip), Muscle Stiffness (right thigh) Skin: Reports: No Symptoms Neurological: Reports: No Symptoms Psychiatric: Reports: No Symptoms ED EXAM, GENERAL - Physical Exam Exam: See Below Exam Limited By: No Limitations General Appearance: Alert, WD/WN, No Apparent Distress Eye Exam: Bilateral Eye: EOMI Neck: Supple, Non-Tender, Full Range of Motion Respiratory/Chest: No Respiratory Distress Peripheral Pulses: 2+: Dorsalis Pedis (L), Dorsalis Pedis (R) GI/Abdominal: Soft Extremities: Normal Inspection, Limited Range of Motion, Other (straight leg raise is negative). No: Pedal Edema, Joint Swelling, Increased Warmth, Mottled Neurological: Alert, Oriented Course - Orders/Labs/Meds Orders: Active Orders 24 hr Category Date Time Status Hip Min 2V or 3V w Pelvis Rt [CR] Stat Exams 07/01/19 15:29 Taken Lumbar Spine 2 or 3V [CR] Stat Exams 07/01/19 15:41 Taken Meds: Medications Discontinued Medications Generic Name Dose Route Start Last Admin Trade Name Freq PRN Reason Stop Dose Admin Hydrocodone Bitart/Acetaminophen 1 tab 07/01/19 15:57 07/01/19 16:15 [place] 325-5 Mg PO 07/01/19 15:58 1 tab ONETIME ONE Administration Ketorolac Tromethamine 30 mg 07/01/19 15:29 07/01/19 15:33 Toradol IM 07/01/19 15:30 30 mg ONETIME ONE Administration - Re-Assessments/Exams Free Text/Narrative Re-Assessment/Exam: 07/01/19 16:40 Xray of hip and lumbar region showed no new changes pt given Toradol and norco with good relieve of pain will FU with her PCP Departure - Departure Time of Disposition: 16:40 Disposition: Home, Self-Care 01 Condition: Fair Clinical Impression: Chronic right hip pain, S/P hip hemiarthroplasty - Discharge Information *PRESCRIPTION DRUG MONITORING PROGRAM REVIEWED*: Not Applicable *COPY OF PRESCRIPTION DRUG MONITORING REPORT IN PATIENT OMER: Not Applicable Referrals: Светлана Mckay MD [Primary Care Provider] - Forms: ED Department Discharge Additional Instructions: Use tylenol as needed for pain ( 1000mg tid prn) Make appointment to see your Doctor in the next few days for recheck Sepsis Event Note - Focused Exam Date Exam was Performed: 07/01/19 Time Exam was Performed: 16:38 - My Orders Last 24 Hours: My Active Orders 07/01/19 15:29 Hip Min 2V or 3V w Pelvis Rt [CR] Stat 07/01/19 15:41 Lumbar Spine 2 or 3V [CR] Stat - Assessment/Plan Last 24 Hours: My Active Orders 07/01/19 15:29 Hip Min 2V or 3V w Pelvis Rt [CR] Stat 07/01/19 15:41 Lumbar Spine 2 or 3V [CR] Stat
[2019-07-01] MEDS ORDERED: Acetaminophen/HYDROcodone 325-5 MG Tab PO ONE (15:57)
[2019-07-01 16:42] VITALS: BP 147/85; PULSE 92
--- NOTE | 2019-07-02 10:43 | CR ---
INDICATION: Right hip pain, no known trauma - sharp pain in hip when going from chair to standing. RIGHT HIP WITH PELVIS: Frontal view of the pelvis and right hip with lateral of the right hip 07/01/19 - no comparisons. Hip arthroplasty is noted on the right which appears to be intact without a definite complicating process. Sacroiliac joints appear to be intact. Only minimal degenerative change is noted at the left hip joint. An acute fracture or dislocation was not identified. Calcifications are noted in the iliac arteries. IMPRESSION: No specific abnormality identified to suggest an etiology for the patient's pain. Nuclear bone imaging possibly with 3-phase technique, may be helpful for further evaluation. MTDD
--- NOTE | 2019-07-02 10:49 | CR ---
INDICATION: Right thigh pain. LUMBOSACRAL SPINE: Three views of the lumbosacral spine revealed a minimal dextroconcave scoliosis with mild rotatory component. Decreased disk space with vacuum disk phenomenon is noted at L5-S1 compatible with degenerative disk disease. There is some hypertrophic change at the apophyseal joints of L5-S1. Slightly decreased disk space is also suggested at L3-4 raising question of disk disease at that level. Overall bone density appeared to be normal. No definite acute bone or joint abnormality was suggested. Incidentally noted were calcifications in the abdominal aorta and iliac arteries. Calcifications are also noted in the splenic artery. IMPRESSION: Degenerative changes, disk disease, rotoscoliosis, ASD. MTDD
== END 2019-07-01 17:05 | disposition home or self-care (01) ==
LOC: FB.ED 14:45
DX: M25.551 Pain in right hip (principal); G89.29 Other chronic pain; Z96.641 Presence of right artificial hip joint; I10 Essential (primary) hypertension; E11.9 Type 2 diabetes mellitus without complications; E78.00 Pure hypercholesterolemia, unspecified; K21.9 Gastro-esophageal reflux disease without esophagitis; F41.9 Anxiety disorder, unspecified; F32.9 Major depressive disorder, single episode, unspecified; Z86.73 Personal history of transient ischemic attack (TIA), and cerebral infarction without residual deficits; Z88.5 Allergy status to narcotic agent; Z88.1 Allergy status to other antibiotic agents; Z79.82 Long term (current) use of aspirin; Z79.899 Other long term (current) drug therapy; Z79.84 Long term (current) use of oral hypoglycemic drugs
CPT/HCPCS: 72100; 73502; 96372; 99283; A9270; J1885

== ENCOUNTER 2019-09-13 16:02 | Emergency (ER) | payer MEDICARE ==
[2019-09-13] MEDS ORDERED: Sodium Chloride 0.9% 1,000 ML IV SCH (17:00)
[2019-09-13] MEDS ORDERED: Iopamidol 755 Mg/ML 100 ML Bottle IV ONE (17:16)
--- NOTE | 2019-09-13 19:05 | EDM.PDOC ---
ED HPI GENERAL MEDICAL PROBLEM - General Chief Complaint: Abdominal Pain Stated Complaint: rectal bleeding Time Seen by Provider: 09/13/19 16:20 Source of Information: Reports: Patient History Limitations: Reports: No Limitations - History of Present Illness INITIAL COMMENTS - FREE TEXT/NARRATIVE: states she has noted rectal bleed for the past 3 days , every time she goes to have BM of urinate she sees blood , has no diarrhea , has epigastric pain, no nausea or vomiting noted no fever or chills , no cough no sob states she may have had hemorrhoids in the pat has not had recent colonoscopy Onset: Gradual Onset Date: 09/10/19 Duration: Day(s): (3) Location: Reports: Abdomen Quality: Reports: Ache Severity: Moderate Associated Symptoms: Reports: Loss of Appetite, Malaise, Weakness epigastric Pain Score (Numeric/FACES): 6 - Related Data Allergies Allergy/AdvReac Type Severity Reaction Status Date / Time amitriptyline Allergy Cannot Verified 09/13/19 16:16 Remember codeine Allergy Cannot Verified 09/13/19 16:16 Remember tetracycline Allergy Cannot Verified 09/13/19 16:16 Remember Home Meds: Home Meds RX: Benazepril [Lotensin] 40 mg PO DAILY 01/24/19 [History] RX: Cholecalciferol (Vitamin D3) [Vitamin D3] 25 mcg PO DAILY 01/24/19 [History] RX: Ibandronate Sodium 150 mg PO Q30D 01/24/19 [History] RX: Montelukast Sodium 10 mg PO BEDTIME 01/24/19 [History] RX: atorvaSTATin Calcium [Atorvastatin Calcium] 40 mg PO DAILY 01/24/19 [History ] RX: Ascorbate Calcium [Vitamin C] 1,000 mg PO DAILY 03/05/19 [History] RX: Aspirin [Aspirin EC] 325 mg PO DAILY 03/05/19 [History] RX: Calcium Carbonate [Calcium] 500 mg PO TID 03/05/19 [History] RX: Multivitamins,Therapeutic [Thera] 1 tab PO DAILY 03/05/19 [History] RX: Acetaminophen [Tylenol Extra Strength] 1,000 mg PO TID tablet 03/31/19 [Rx] RX: Pantoprazole 40 mg PO DAILY #30 tab.dr 03/31/19 [Rx] RX: Trolamine Salicylate/Aloe Vera [Aspercreme 10%] 0 gm TOP QID PRN tube 03/31 [Rx] hydrOXYzine HCL [Hydroxyzine HCl] 50 mg PO BEDTIME #30 tablet 03/31/19 [Rx] Past Medical History HEENT History: Reports: Impaired Vision Cardiovascular History: Reports: High Cholesterol, Hypertension, SOB on Exertion Respiratory History: Reports: SOB Gastrointestinal History: Reports: Gastritis, GERD, Other (See Below) Other Gastrointestinal History: Lactose intolerant 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 Endocrine/Metabolic History: Reports: Diabetes, Type II Hematologic History: Reports: Blood Transfusion(s) Dermatologic History: Reports: Other (See Below) Other Dermatologic History: RASH AND C\O OF SOME ITCHING AT TIMES WITH A RASH. - Infectious Disease History Infectious Disease History: Reports: Chicken Pox, Shingles - Past Surgical History Head Surgeries/Procedures: Reports: Other (See Below) Cardiovascular Surgical History: Reports: None Respiratory Surgical History: Reports: None GI Surgical History: Reports: Colonoscopy Endocrine Surgical History: Reports: None Neurological Surgical History: Reports: Other (See Below) Other Neurological Surgeries/Procedures: PT HAD SURGERY ON RIGHT SIDE OF FACE IN FRONT OF HER EAR IN PAST. Musculoskeletal Surgical History: Reports: Hip Replacement, Shoulder Surgery, Other (See Below) Other Musculoskeletal Surgeries/Procedures:: FRACTURED HUMERUS CURRENTLY AND S\ P RIGHT HIP REPLACEMENT ON 02/28/2019 ON HIP Dermatological Surgical History: Reports: None - Past Imaging History Past Imaging History: Reports: Cardiac Echo (10/04/2018) Social & Family History - Family History Family Medical History: Noncontributory Cardiac: Reports: CAD, [place] Other OBGYN Family History: Breast cancer: Paternal aunt Neurological: Reports: CVA Psychiatric: Reports: Other (See Below) - Tobacco Use Smoking Status *Q: Former Smoker Used Tobacco, but Quit: Yes Month/Year Tobacco Last Used: unble to remember. Tobacco Use Comment: states that she only smoked when she was in high school. - Caffeine Use Caffeine Use: Reports: Coffee, Soda - Recreational Drug Use Recreational Drug Use: No - Living Situation & Occupation Living situation: Reports: Alone Occupation: Retired ED ROS GENERAL - Review of Systems Review Of Systems: See Below Constitutional: Reports: Malaise, Weakness HEENT: Reports: No Symptoms Respiratory: Reports: No Symptoms Cardiovascular: Reports: No Symptoms Endocrine: Reports: No Symptoms GI/Abdominal: Reports: Anorexia, Bloody Stool, Decreased Appetite, Other ( epigastric pain) Musculoskeletal: Reports: Shoulder Pain Neurological: Reports: No Symptoms Hematologic/Lymphatic: Reports: Anemia ED EXAM, GI/ABD - Physical Exam Exam: See Below Exam Limited By: No Limitations General Appearance: Alert, WD/WN, No Apparent Distress Eyes: Bilateral: Abnormal EOM Ears: Normal External Exam Head: Atraumatic Neck: Supple, Non-Tender Respiratory/Chest: No Respiratory Distress Cardiovascular: Regular Rate, Rhythm, Systolic Murmur GI/Abdominal Exam: Soft, Tender (in the epigastrium), Abnormal Bowel Sounds ( hypotension). No: Guarding, Rigid Rectal (Female) Exam: Normal Rectal Tone, Black Stool, Heme + Stool. No: Hemorrhoids, Tenderness Back Exam: Full Range of Motion Extremities: Normal Range of Motion Neurological: Alert, Oriented Course - Vital Signs Last Recorded V/S: Last Vital Signs Temp 36.7 C 09/13/19 16:15 Pulse 113 H 09/13/19 16:15 Resp 17 09/13/19 16:15 BP 128/81 09/13/19 16:15 Pulse Ox 99 09/13/19 16:15 - Orders/Labs/Meds Orders: Active Orders 24 hr Category Date Time Status Abdomen Pelvis w Cont [CT] Stat Exams 09/13/19 16:53 Taken Sodium Chloride 0.9% [Normal Saline] 1,000 ml Med 09/13/19 17:00 Active IV ASDIRECTED Medication Orders Sodium Chloride (Normal Saline) 1,000 mls @ 500 mls/hr IV ASDIRECTED MONI Last Admin: 09/13/19 17:05 Dose: 500 mls/hr Labs: Laboratory Tests 09/13/19 09/13/19 09/13/19 Range/Units 16:30 16:30 16:30 WBC 8.8 (4.5-12.0) X10-3/uL RBC 3.36 (3.23-5.20) x10(6)uL Hgb 9.1 L (11.5-15.5) g/dL Hct 27.8 L (30.0-51.3) % MCV 82.8 (80-96) fL MCH 27.0 L (27.7-33.6) pg MCHC 32.6 (32.2-35.4) g/dL RDW 14.6 (11.5-15.5) % Plt Count 345 (125-369) X10(3)uL MPV 8.0 (7.4-10.4) fL Neut % (Auto) 79.1 (46-82) % Lymph % (Auto) 13.3 (13-37) % Surry % (Auto) 5.7 (4-12) % Eos % (Auto) 2 (1.0-5.0) % Baso % (Auto) 0 (0-2) % Neut # (Auto) 6.9 (1.6-8.3) # Lymph # (Auto) 1.2 (0.6-5.0) # Surry # (Auto) 0.5 (0.0-1.3) # Eos # (Auto) 0.1 (0.0-0.8) # Baso # (Auto) 0.0 (0.0-0.2) # Sodium 142 (135-145) mmol/L Potassium 3.6 (3.5-5.3) mmol/L Chloride 103 (100-110) mmol/L Carbon Dioxide 26 (21-32) mmol/L BUN 23 H (7-18) mg/dL Creatinine 1.1 H (0.55-1.02) mg/dL Est Cr Clr Drug Dosing 32.32 mL/min Estimated GFR (MDRD) 48 L (>60) BUN/Creatinine Ratio 20.9 H (9-20) Glucose 192 H (80-116) mg/dL Calcium 8.8 (8.6-10.2) mg/dL Total Bilirubin 0.3 (0.1-1.3) mg/dL AST 26 H D (5-25) IU/L ALT 33 D (12-36) U/L Alkaline Phosphatase 74 (56-112) IU/L NT-Pro-B Natriuret Pep 320 (<=450) pg/mL Total Protein 7.0 (6.0-8.0) g/dL Albumin 3.7 (3.2-4.6) g/dL Globulin 3.3 g/dL Albumin/Globulin Ratio 1.1 Meds: Medications Generic Name Dose Route Start Last Admin Trade Name Frejulianne PRN Reason Stop Dose Admin Sodium Chloride 1,000 mls @ 500 mls/hr 09/13/19 17:00 09/13/19 17:05 Normal Saline IV 500 mls/hr ASDIRECTED MONI Administration Discontinued Medications Generic Name Dose Route Start Last Admin Trade Name Lashonda PRN Reason Stop Dose Admin Iopamidol 100 ml 09/13/19 17:16 09/13/19 17:31 Isovue-370 (76%) IV 09/13/19 17:17 79 ml ONETIME ONE Administration Pantoprazole Sodium 40 mg 09/13/19 19:09 Protonix Iv IVPUSH 09/13/19 19:10 ONETIME ONE - Re-Assessments/Exams Free Text/Narrative Re-Assessment/Exam: 09/13/19 19:06 pt started on IVF , protonix and sent for CT of the abdomen Has since also complained of chronic shoulder pain 09/13/19 19:11 pt signed out to next provider Departure - Departure Time of Disposition: 19:12 Disposition: Admitted As Inpatient 68 Condition: Fair Clinical Impression: Lower gastrointestinal bleed, Anemia - Discharge Information *PRESCRIPTION DRUG MONITORING PROGRAM REVIEWED*: Not Applicable *COPY OF PRESCRIPTION DRUG MONITORING REPORT IN PATIENT OMER: Not Applicable Referrals: Светлана Mckay MD [Primary Care Provider] - Forms: ED Department Discharge Sepsis Event Note - Evaluation Sepsis Screening Result: No Definite Risk - Focused Exam Vital Signs: Vital Signs Temp Pulse Resp BP Pulse Ox 09/13/19 16:15 36.7 C 113 H 17 128/81 99 Date Exam was Performed: 09/13/19 Time Exam was Performed: 19:10 - My Orders Last 24 Hours: My Active Orders 09/13/19 16:53 Abdomen Pelvis w Cont [CT] Stat 09/13/19 17:00 Sodium Chloride 0.9% [Normal Saline] 1,000 ml IV ASDIRECTED - Assessment/Plan Last 24 Hours: My Active Orders 09/13/19 16:53 Abdomen Pelvis w Cont [CT] Stat 09/13/19 17:00 Sodium Chloride 0.9% [Normal Saline] 1,000 ml IV ASDIRECTED
[2019-09-13] MEDS ORDERED: Pantoprazole 40 MG Vial IVPUSH ONE (19:09)
--- NOTE | 2019-09-13 20:23 | ER ---
DATE SEEN: 09/13/2019 REASON FOR VISIT: Bright red blood per rectum. HISTORY OF PRESENT ILLNESS: This is a 79-year-old female who came in because of progressive blood, melena, and sometimes bright over the last few weeks, got worse the last 2 days. No pain. Feels tired. She has a history of gastritis, anemia, anxiety, GERD, and hypertension. Last colonoscopy was years ago. REVIEW OF SYSTEMS: No chest pain, fever, or chills. No nausea or vomiting. ALLERGIES: Reviewed and see Ducatt. PHYSICAL EXAMINATION: VITAL SIGNS: Upon exam, blood pressure is 152/70, pulse is 82. ABDOMEN: Soft and benign. CHEST: Clear. SKIN: Mild pallor. No jaundice. LABORATORY DATA: Hemoglobin is 9.1. CT abdomen and pelvis showed some diverticulosis. IMPRESSION: 1. Rectal bleeding, likely due to diverticulosis. 2. Anemia. PLAN: Discharge home on ferrous sulfate. Discontinue aspirin. See Dr. Mckay on Sunday. Return to the ED with any worsening symptoms. /[id number] KATHLEEN/GISEL
[2019-09-13 22:38] VITALS: BP 159/77; PULSE 87
== END 2019-09-13 20:50 | disposition critical access hospital (66) ==
LOC: FB.ED 16:02
DX: D64.9 Anemia, unspecified (principal); K62.5 Hemorrhage of anus and rectum; I10 Essential (primary) hypertension
CPT/HCPCS: 36415; 74177; 80053; 83880; 85025; 96361; 96374; 99284; C9113; J7030; Q9967; 99283

== ENCOUNTER 2019-09-16 16:15 | Inpatient (IN) | payer MEDICARE ==
[2019-09-16] MEDS: Pantoprazole 40 MG Vial IVPUSH SCH (18:37)
[2019-09-16] MEDS: Sodium Chloride 0.9% 250 ML IV SCH (21:09)
[2019-09-17] MEDS: Sodium Chloride 0.9% 250 ML IV SCH (00:13)
--- NOTE | 2019-09-17 09:20 | PCM.PN ---
- General Info Date of Service: 09/17/19 - Review of Systems General: Reports: No Symptoms Gastrointestinal: Reports: No Symptoms - Patient Data Vitals - Most Recent: Last Vital Signs Temp 98 F 09/17/19 04:00 Pulse 73 09/17/19 04:00 Resp 16 09/17/19 04:00 BP 141/86 H 09/17/19 04:00 Pulse Ox 100 09/17/19 04:00 Weight - Most Recent: 62.312 kg I&O - Last 24 Hours: Intake & Output 09/16/19 09/17/19 09/17/19 22:59 06:59 14:59 Intake Total 100 720 Output Total 200 200 300 Balance -100 520 -300 Lab Results Last 24 Hours: Laboratory Results - last 24 hr 09/16/19 09/17/19 Range/Units 18:04 05:55 WBC 9.1 (4.5-12.0) X10-3/uL RBC 3.63 (3.23-5.20) x10(6)uL Hgb 9.9 L (11.5-15.5) g/dL Hct 30.2 (30.0-51.3) % MCV 83.2 (80-96) fL MCH 27.3 L (27.7-33.6) pg MCHC 32.8 (32.2-35.4) g/dL RDW 14.6 (11.5-15.5) % Plt Count 231 (125-369) X10(3)uL Blood Type A POSITIVE Gel Antibody Screen Negative Crossmatch See Detail Med Orders - Current: Current Medications Sodium Chloride (Normal Saline) 250 mls @ 100 mls/hr IV ASDIRECTED [facility] Last Admin: 09/17/19 00:13 Dose: 100 mls/hr Pantoprazole Sodium (Protonix Iv) 40 mg IVPUSH DAILY [facility] Last Admin: 09/16/19 18:37 Dose: 40 mg - Exam GI/Abdominal Exam: Soft, Non-Tender Sepsis Event Note - Evaluation Sepsis Screening Result: No Definite Risk - Focused Exam Vital Signs: Vital Signs Temp Temp Pulse Resp BP Pulse Ox 09/17/19 04:00 98 F 73 16 141/86 H 100 09/17/19 03:55 98 F 16 141/86 H 09/17/19 02:55 97.9 F 72 16 149/83 H 09/17/19 00:29 98 F 83 16 131/74 09/17/19 00:10 98.2 F 72 18 134/79 09/17/19 00:00 98.2 F 72 16 134/79 99 09/16/19 23:55 98.2 F 72 16 134/79 09/16/19 22:30 98.9 F 85 16 120/71 09/16/19 21:24 98.6 F 82 16 126/73 Date Exam was Performed: 09/17/19 Time Exam was Performed: 09:19 - Problem List Review Problem List Initiated/Reviewed/Updated: Yes - My Orders Last 24 Hours: Anemia better after transfusions, feels much stronger. I feel she can tolerate a bowel prep today - Plan Plan:: Bowel prep today, EGD and colonoscopy tomorrow
[2019-09-17] MEDS ORDERED: Polyethylene Glycol 3350 Powder 238 GM Bot PO ONE (09:22)
[2019-09-17] MEDS: Pantoprazole 40 MG Vial IVPUSH SCH (09:37)
[2019-09-17] MEDS: Sodium Chloride 0.9% 10 ML Syringe FLUSH PRN ×2 (09:37→14:23)
[2019-09-17] MEDS ORDERED: Ondansetron 4 MG/2 ML SDV IVPUSH PRN (12:31)
--- NOTE | 2019-09-17 12:35 | HP ---
ADMISSION DATE: 09/16/2019 CHIEF COMPLAINT: Low blood, low hemoglobin, and fatigue. HISTORY OF PRESENT ILLNESS: Cinda Gomez is a 79-year-old, female, resident of [facility], who was admitted from [facility]. Had been seen at [facility] ER the weekend prior to admission. Hemoglobin was 7.8. Has had some intermittent rectal bleeding. Discharged home on iron pills. She has noted some intermittent crampy abdominal pain, bright red blood of several weeks' duration. Colonoscopy or sigmoidoscopy last done in . MEDICATIONS: Medications at the time of admission include: 1. P.r.n. Tylenol. 2. Atorvastatin 40 mg one p.o. q day, hyperlipidemia. 3. Benazepril 40 mg p.o. at bedtime, blood pressure. 4. Vitamin D3 one daily, nutrition. 5. Citalopram 40 mg one p.o. daily, mood stabilizer. 6. Ferrous gluconate 325 one p.o. daily, anemia. 7. Melatonin 3 mg at bedtime. 8. Singulair 10 mg one p.o. daily, reactive airway disease. 9. Multivitamin one p.o. daily, nutrition. 10.Ozempic 0.5 subcu once weekly. 11.Pantoprazole 40 mg one p.o. daily, GERD. ALLERGIES: Amitriptyline, codeine and tetracycline, reactions unknown. PAST MEDIAL HISTORY: Significant for no previous operative procedures until this recent hospital stay, had a complicated left shoulder fracture, right hip fracture requiring surgical intervention of hip for a shoulder fall. No other operative procedures, hospitalizations, unusual childhood diseases, major injuries, or fractures. TREATED ILLNESSES: Include hypertension, mood disorder, and hyperlipidemia. SOCIAL HISTORY: , lives in senior housing. 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 Three children; one daughter and two sons, great grandchildren. Smoked remotely, none now, no vaping, no chewing, no illicit drug use. REVIEW OF SYSTEMS: CONSTITUTIONAL: Feeling fatigued and tired. EYES: Sees well. EARS: Hears well. OROPHARYNX: Dentition in place. CHEST: No cough, wheeze, or congestion. CV: No chest pain. GI: Please see HPI. : Voiding comfortably. No blood in urine. SKIN: No lesions, eruptions, or moles. ENDOCRINE: No excessive thirst or urination. NEUROLOGIC: Denies headache, blurred vision, weakness, or tremors. PSYCHIATRIC: Mood is stable. ORTHOPEDICS: Generalized joint complaints. Shoulder still unhappy. PHYSICAL EXAMINATION: VITAL SIGNS: 36.7, 114/58, 18, and 100%. GENERAL: Middle-aged young lady, appears younger than stated age, cooperative, conversant, gives a good history. HEENT: Fundoscopic is benign. Bright TMs. Clear nasal discharge. Mouth and oropharynx clear. NECK: Benign. Thyroid is small. CHEST: On auscultation, clear all lung christianson. HEART: On auscultation, no ectopy or significant murmur. ABDOMEN: Benign. AND RECTAL: Declined and deferred, will leave to surgical provider. SKIN: Surgical scar, right shoulder and right hip healed nicely. EXTREMITIES: Well perfused. NEUROMUSCULAR: Intact. LABORATORY STUDIES: Hemoglobin 7.2 per Kenji, [facility]. ASSESSMENT: Lower gastrointestinal bleed suspected. PLAN: We will place in the hospital, give 2 units of blood, get hemoglobin stabilized, Dr. Griffin will be seeing the patient in consultation for appropriate diagnostic studies. /[id number] VLADIMIR/GISEL
--- NOTE | 2019-09-17 12:43 | PN ---
DATE SEEN: 09/17/2019 SUBJECTIVE: Kelly Gomez is a 79-year-old female, admitted yesterday with complicated anemia, lower rectal bright red bleeding, hemoglobin down to 7.2. Had a good night. Was given 2 units of blood. Hemoglobin now has risen from 7.2 to 9.9 with very normal indices. Had been seen by Dr. Griffin. Planning upper and lower endoscopy tomorrow, 09/18/2019. Will undergo prep and clear liquids today. No other outstanding laboratory studies. Otherwise feeling well. No BM today. OBJECTIVE: VITAL SIGNS: 62.312 kg, 36.3, pulse is 73, 141/86, 16 is the respiration, 100%. GENERAL: Appears more comfortable, but little brighter and more alert. Color better. NECK: Benign. Thyroid small. CHEST: On auscultation, clear in all lung christianson. HEART: No ectopy or murmur. ABDOMEN: A little vague tenderness in lower abdomen. ASSESSMENT: Lower gastrointestinal bleed suspected. PLAN: Upper and lower endoscopy. Complementary care and well being, hemoglobin much improved at 9.9. We will allow clear liquids through today for her prep. /[id number] /GISEL
[2019-09-17] MEDS: Lactated Ringers 1,000 ML IV SCH ×2 (14:25→21:09)
[2019-09-17] MEDS: Acetaminophen 325 MG Tab PO PRN (23:44)
[2019-09-18] MEDS: Lactated Ringers 1,000 ML IV SCH ×2 (03:50→10:40)
--- NOTE | 2019-09-18 12:05 | PN ---
DATE SEEN: 09/18/2019 SUBJECTIVE: Kelly Gomez is a 79-year-old female, admitted with acute GI bleed, likely lower GI. Endoscopy upper and lower planned for today at 1 o'clock. Hemoglobin has fallen from 7.2, was transfused to 9.9, 9.8 at 4 o'clock yesterday, 9.3 hemoglobin, 28.1 hematocrit this morning at 8 a.m. Feeling otherwise well. OBJECTIVE: GENERAL: Appears comfortable. HEENT: Mouth and oropharynx clear. NECK: Benign. CHEST: Clear. HEART: Regular. ABDOMEN: Mildly tender. ASSESSMENT: Complicated gastrointestinal bleed. PLAN: Endoscopy per Dr. Griffin upcoming and planned. /[id number] VLADIMIR/GISEL
--- NOTE | 2019-09-18 14:20 | PCM.OPNOTE ---
- General Post-Op/Procedure Note Date of Surgery/Procedure: 09/18/19 Operative Procedure(s): Colonoscopy with polypectomy Findings: Diverticulosis, no active bleeding 2 Polyps Pre Op Diagnosis: Lower GI Bleed Post-Op Diagnosis: Same Anesthesia Technique: MAC Primary Surgeon: Jose Griffin Anesthesia Provider: Veena Pacheco EBL in mLs: 0 Condition: Good Free Text/Narrative:: Intake & Output 09/17/19 09/18/19 09/18/19 22:59 06:59 14:59 Output Total 200 600 Balance -200 -600
[2019-09-18] MEDS: Pantoprazole 40 MG Vial IVPUSH SCH (14:42)
[2019-09-18] MEDS ORDERED: Labetalol 100 MG/20 ML MDV IV ONE (16:04)
[2019-09-18] MEDS ORDERED: Lidocaine 2% 5 ML SDV INJECT ONE (16:04)
[2019-09-18] MEDS ORDERED: Propofol 200 MG/20 ML SDV IV ONE (16:04)
[2019-09-18] MEDS: Sodium Chloride 0.9% 10 ML Syringe FLUSH PRN (16:06)
--- NOTE | 2019-09-18 18:54 | PN ---
DATE SEEN: 09/18/2019 SUBJECTIVE: Kelly Gomez is a 79-year-old female, admitted with acute GI bleed. Upper endoscopy unremarkable. Lower endoscopy revealed 2 polyps, both benign, and bleeding from diverticular orifice. Procedure performed by Dr. Griffin. Hemoglobin is stable 9.9, 9.8, 9.3. We will recheck hemoglobin in the morning. Ate her supper without difficulty. No recurrent bleeding. Spoke about recurrent bleeding, close followup and necessity, further intervention would have to be provided by Interventional Radiology in May or colorectal surgeons in May. PLAN: Complementary care and well being. /[id number] VLADIMIR/GISEL
--- NOTE | 2019-09-18 19:14 | OR ---
DATE OF OPERATION: 09/18/2019 SURGEON: Jose Griffin MD PREOPERATIVE DIAGNOSIS: Lower gastrointestinal bleed. POSTOPERATIVE DIAGNOSES: 1. Diverticulosis. 2. Colon and rectal polyps. PROCEDURES: Colonoscopy with polypectomy. ANESTHESIA: IV sedation. DESCRIPTION OF PROCEDURE: The patient was brought to the procedure room, where she was placed on her left side and IV sedation administered. Digital rectal exam was performed, which was normal. The colonoscope was inserted and advanced to the level of the cecum without difficulty. Cecal position was confirmed by identifying the appendiceal lumen and ileocecal valve. Prep was good with some pieces of stool from diverticulosis, mostly in the sigmoid colon. There was no fresh blood present. Upon withdrawing the scope, the ascending, transverse, and descending colon had diverticula throughout the entire colon. Sigmoid colon was quite tortuous and had multiple large diverticula, many with stool impaction. The source of bleeding appeared to be from 20 cm, where there is a dark clot present in one of the diverticula with some swelling and a small amount of blood around it. There was a polyp in the sigmoid colon at 40 cm, measuring 6 mm in diameter, removed with the cautery snare and retrieved in the polyp trap. There was also a large 15 mm polyp in the rectum at 12 cm, removed with a cautery snare and retrieved in the polyp trap. Retroflexion was normal. The polyps did not appear to be the source of bleeding. Air was removed and the scope withdrawn. The patient tolerated the procedure well and returned to Recovery in stable condition. I will let the patient start to eat since she has not had any evidence of bleeding today and hemoglobin has been stable. /[id number] CHELSY/GISEL
[2019-09-18] MEDS: Acetaminophen 325 MG Tab PO PRN (21:35)
[2019-09-19] MEDS: Ferrous Sulfate 325 MG Tab PO SCH ×2 (08:29→11:08)
[2019-09-19] MEDS: Pantoprazole 40 MG Vial IVPUSH SCH (08:29)
[2019-09-19] MEDS: Sodium Chloride 0.9% 10 ML Syringe FLUSH PRN (08:31)
[2019-09-19 13:59] VITALS: BP 155/87; PULSE 97
--- NOTE | 2019-09-19 18:26 | DISCH ---
DISCHARGE DATE: 09/19/2019 PRIMARY FINAL DIAGNOSIS: Lower gastrointestinal bleed with anemia. OTHER DIAGNOSES: 1. Chronic essential hypertension. 2. Osteoporosis. 3. Gastroesophageal reflux disease. 4. Hyperlipidemia. 5. Depression. 6. Type 2 diabetes. OPERATIONS: Upper gastrointestinal and lower gastrointestinal endoscopy. COMPLICATIONS: None. SUMMARY: Ms. Gomez is a 79-year-old woman who came in with rectal bleeding. She was seen previously as an outpatient in the emergency room and came back because of recurrence. She was having lower GI bleeding. She was transfused and underwent endoscopy. This showed normal upper GI endoscopy, but lower colonoscopy positive for bleeding of clot in the diverticulum consistent with diverticular bleed. Her bleeding stopped and she was placed on oral iron. By 09/19/2019, she was stable and ready for discharge. Hemoglobin the day of discharge was 8.6 g. She is sent home in good condition to continue medications as follows: 1. Aspercreme p.r.n. 2. Protonix 40 mg daily. 3. Ozempic 0.5 mg subcu daily. 4. Multivitamin 1 daily. 5. Singulair 10 mg daily. 6. Melatonin 3 mg at bedtime. 7. Ibandronate 150 mg p.o. monthly. 8. Iron sulfate 325 mg t.i.d. 9. Citalopram 40 mg daily. 10.Vitamin D 25 mcg daily. 11.Benazepril 40 mg daily. 12.Atorvastatin 40 mg daily. 13.Tylenol p.r.n. She is to have followup with Dr. Mckay as an outpatient with a repeat hemoglobin in 2 weeks and call should there be question or problems prior to that time. /[id number] INO/GISEL
== END 2019-09-19 14:35 | disposition home or self-care (01) | DRG 378 ==
LOC: FB.MS 16:15
PROVIDERS: ADMIT Family Medicine; ATTEND Family Medicine
PROC: 30233N1 Transfusion of Nonautologous Red Blood Cells into Peripheral Vein, Percutaneous Approach (ICD-10-PCS; principal; 2019-09-17)
PROC: 0DBP8ZZ Excision of Rectum, Via Natural or Artificial Opening Endoscopic (ICD-10-PCS; 2019-09-18)
PROC: 0DBN8ZZ Excision of Sigmoid Colon, Via Natural or Artificial Opening Endoscopic (ICD-10-PCS; 2019-09-18)
DX: K57.31 Diverticulosis of large intestine without perforation or abscess with bleeding (principal); D62 Acute posthemorrhagic anemia; D64.9 Anemia, unspecified; K63.5 Polyp of colon; I10 Essential (primary) hypertension; M81.0 Age-related osteoporosis without current pathological fracture; K21.9 Gastro-esophageal reflux disease without esophagitis; E78.5 Hyperlipidemia, unspecified; F32.9 Major depressive disorder, single episode, unspecified; E11.9 Type 2 diabetes mellitus without complications; Z79.899 Other long term (current) drug therapy; Z88.5 Allergy status to narcotic agent; Z88.1 Allergy status to other antibiotic agents
CPT/HCPCS: 36415; 36430; 85018; 85027; 86850; 86900; 86901; 86920; 86922; 88305; A9270-GY; C9113; J2001; J2405; J2704; J3490; J7050; J7120; P9016

== ENCOUNTER 2020-03-28 14:44 | Emergency (ER) | payer MEDICARE ==
--- NOTE | 2020-03-28 15:41 | EDM.PDOC ---
ED HPI GENERAL MEDICAL PROBLEM - General Chief Complaint: General Stated Complaint: RECTAL BLEEDING Time Seen by Provider: 03/28/20 15:40 Source of Information: Reports: Patient History Limitations: Reports: No Limitations - History of Present Illness INITIAL COMMENTS - FREE TEXT/NARRATIVE: 79-year-old female who reports ongoing problems with epigastric abdominal pain since late January 2020. She reports that it has been associated with bloating and belching and increased flatulence and has waxed and waned over this period of time. She reports that she has been trying to manage this by avoiding certain foods or stopping certain medications and it does not seem to be improving with this. Her pain is typically anywhere from a for 2 and a over 10 and is currently a 6/10 now. It is sharp pain that does not radiate. It is always in her epigastrium area. It does seem to be worse with eating and she finds that she has been eating less. On 1009 at 4 AM she had bright red blood in her bowel movement and the following day her stool seemed to clear and she had no more bleeding. She has had this in the past and that was in September 2019 and she reports that she had a colonoscopy at that time which just showed diverticulosis. The patient reports that she had another episode of bright red blood today and that coupled with the fact that she is having this ongoing pain in her abdomen caused her to come to the emergency department for evaluation. She also tells me that she sought no medical care for her epigastric abdominal pain until last week and at that time she was set up for an upper endoscopy but failed to keep that appointment because she was feeling "so sick on that day". She was reporting to the fact that that day was particularly bad day for her pain in her abdomen. She has felt more tired than normal recently. She has had no fevers or chills. She has had no chest pain associated with this. She has been urinating normally. There are no other associated signs or symptoms. There are no other modifying factors. Onset: Other (Epigastric abdominal pain and other bloating and belching and flatulence has been ongoing for the past 2-3 months. Bright red blood per rectum has been ongoing for the past 3 days.) Duration: Getting Worse, Intermittent Location: Reports: Abdomen Quality: Reports: Sharp, Other (Cramping) Severity: Moderate (to severe.) Improves with: Reports: None Worsens with: Reports: Eating, Other (Palpation) Context: Reports: Other (As above.) Associated Symptoms: Reports: Malaise, Nausea/Vomiting (Nausea but no vom iting.), Weakness, Other (Fatigue) Treatments [place]: Reports: Other (see below) (Nothing.) abdomen Pain Score (Numeric/FACES): 8 - Related Data Allergies Allergy/AdvReac Type Severity Reaction Status Date / Time amitriptyline Allergy Cannot Verified 09/13/19 16:16 Remember codeine Allergy Cannot Verified 09/13/19 16:16 Remember tetracycline Allergy Cannot Verified 09/13/19 16:16 Remember Home Meds: Home Meds Benazepril [Lotensin] 40 mg PO BEDTIME 01/24/19 [History] Cholecalciferol (Vitamin D3) [Vitamin D3] 25 mcg PO DAILY 01/24/19 [History] Ibandronate Sodium 150 mg PO Q30D 01/24/19 [History] Montelukast Sodium 10 mg PO BEDTIME 01/24/19 [History] atorvaSTATin Calcium [Atorvastatin Calcium] 40 mg PO DAILY 01/24/19 [History] Multivitamins,Therapeutic [Thera] 1 tab PO DAILY 03/05/19 [History] Trolamine Salicylate/Aloe Vera [Aspercreme 10%] 0 gm TOP QID PRN tube 03/31/19 [Rx] Acetaminophen [Tylenol] 650 mg PO Q4H PRN 09/16/19 [History] Citalopram [Citalopram HBr] 40 mg PO DAILY 09/16/19 [History] Melatonin 3 mg PO BEDTIME PRN 09/16/19 [History] Pantoprazole [ProTONIX] 40 mg PO DAILY 09/16/19 [History] Ozempic 0.5 mg SUBCUT SA 09/17/19 [History] Ferrous Sulfate 325 mg PO TIDMEALS #0 09/19/19 [Rx] Magnesium Oxide [Magnesium] 400 mg PO BID 7 Days #14 tablet 03/28/20 [Rx] Sucralfate [Carafate] 1 gm PO QIDACANDBED #480 ml 03/28/20 [Rx] Past Medical History HEENT History: Reports: Impaired Vision Cardiovascular History: Reports: High Cholesterol, Hypertension, SOB on Exertion Gastrointestinal History: Reports: Gastritis, GERD, Other (See Below) Other Gastrointestinal History: Lactose intolerant Musculoskeletal History: Reports: Back Pain, Chronic, Fracture Other Musculoskeletal History: R humerous fx, R hip Neurological History: Reports: CVA Psychiatric History: Reports: Anxiety, Depression Endocrine/Metabolic History: Reports: Diabetes, Type II Hematologic History: Reports: Blood Transfusion(s) - Infectious Disease History Infectious Disease History: Reports: Chicken Pox, Shingles - Past Surgical History GI Surgical History: Reports: Colonoscopy Neurological Surgical History: Reports: Other (See Below) Other Neurological Surgeries/Procedures: PT HAD SURGERY ON RIGHT SIDE OF FACE IN FRONT OF HER EAR IN PAST. Musculoskeletal Surgical History: Reports: Hip Replacement, Shoulder Surgery, Other (See Below) Other Musculoskeletal Surgeries/Procedures:: FRACTURED HUMERUS CURRENTLY AND S\\P RIGHT HIP REPLACEMENT ON 02/28/2019 ON HIP - Past Imaging History Past Imaging History: Reports: Cardiac Echo (10/04/2018) Social & Family History - Family History Family Medical History: Noncontributory Cardiac: Reports: CAD, [place] Other OBGYN Family History: Breast cancer: Paternal aunt Neurological: Reports: CVA Psychiatric: Reports: Other (See Below) - Tobacco Use Smoking Status *Q: Never Smoker - Caffeine Use Caffeine Use: Reports: Soda Caffeine Use Comment: states that she only drinks diet coke once a week. - Alcohol Use Alcohol Use History: No - Living Situation & Occupation Living situation: Reports: Alone Occupation: Retired ED ROS GENERAL - Review of Systems Review Of Systems: See Below Constitutional: Reports: Malaise, Fatigue HEENT: Reports: No Symptoms Respiratory: Reports: No Symptoms Cardiovascular: Reports: No Symptoms GI/Abdominal: Reports: Abdominal Pain, Bloody Stool, Hematochezia, Nausea. Denies: Vomiting : Reports: No Symptoms Musculoskeletal: Reports: Back Pain Skin: Reports: No Symptoms Neurological: Reports: No Symptoms Psychiatric: Reports: No Symptoms ED EXAM, GENERAL - Physical Exam Exam: See Below Exam Limited By: No Limitations General Appearance: Alert, WD/WN, Mild Distress, Other (Appears nontoxic at this point.) Eye Exam: Bilateral Eye: EOMI, Normal Inspection Ears: Normal External Exam, Hearing Grossly Normal Ear Exam: Bilateral Ear: Auricle Normal Nose: Normal Inspection, Normal Mucosa, No Blood Throat/Mouth: Normal Lips, Normal Oropharynx, Normal Voice, No Airway Compromise Head: Atraumatic, Normocephalic Neck: Normal Inspection, Supple, Non-Tender, Full Range of Motion Respiratory/Chest: No Respiratory Distress, Lungs Clear, Normal Breath Sounds, No Accessory Muscle Use, Chest Non-Tender Cardiovascular: Normal Peripheral Pulses, Regular Rate, Rhythm, No Edema Peripheral Pulses: 2+: Radial (L), Radial (R), Dorsalis Pedis (L), Dorsalis Pedis (R) GI/Abdominal: Normal Bowel Sounds, Soft, No Mass, Guarding, Tender (In the epigastrium). No: Rebound Back Exam: Normal Inspection, Full Range of Motion, Paraspinal Tenderness. No: CVA Tenderness (R), CVA Tenderness (L), Vertebral Tenderness Extremities: Normal Inspection, Normal Range of Motion, Non-Tender, No Pedal Edema, Normal Capillary Refill Neurological: Alert, Oriented, CN II-XII Intact, Normal Cognition, Normal Reflexes, No Motor/Sensory Deficits Psychiatric: Normal Affect Skin Exam: Warm, Dry, Intact, Normal Color, No Rash Lymphatic: No Adenopathy Course - Vital Signs Last Recorded V/S: Last Vital Signs Temp 36.3 C 03/28/20 19:25 Pulse 80 03/28/20 20:48 Resp 18 03/28/20 20:48 BP 153/86 H 03/28/20 20:48 Pulse Ox 99 03/28/20 20:48 Orthostatic Blood Pressure [ 153/85 Standing] Orthostatic Blood Pressure [ 152/92 Sitting] Orthostatic Blood Pressure [ 156/85 Supine] - Orders/Labs/Meds Orders: Active Orders 24 hr Category Date Time Status Abdomen Pelvis w Cont [CT] Stat Exams 03/28/20 17:47 Taken Peripheral IV Insertion Adult [OM.PC] Routine Oth 03/28/20 16:14 Ordered Labs: Laboratory Tests 03/28/20 03/28/20 03/28/20 Range/Units 16:33 16:33 16:33 WBC 11.1 (4.5-12.0) X10-3/uL RBC 3.90 (3.23-5.20) x10(6)uL Hgb 10.8 L (11.5-15.5) g/dL Hct 32.8 (30.0-51.3) % MCV 84.1 (80-96) fL MCH 27.8 (27.7-33.6) pg MCHC 33.1 (32.2-35.4) g/dL RDW 12.7 (11.5-15.5) % Plt Count 277 (125-369) X10(3)uL MPV 8.0 (7.4-10.4) fL Neut % (Auto) 75.6 (46-82) % Lymph % (Auto) 16.0 (13-37) % Divide % (Auto) 7.1 (4-12) % Eos % (Auto) 1 (1.0-5.0) % Baso % (Auto) 0 (0-2) % Neut # (Auto) 8.4 H (1.6-8.3) # Lymph # (Auto) 1.8 (0.6-5.0) # Divide # (Auto) 0.8 (0.0-1.3) # Eos # (Auto) 0.1 (0.0-0.8) # Baso # (Auto) 0.0 (0.0-0.2) # Sodium 133 L (135-145) mmol/L Potassium 3.7 (3.5-5.3) mmol/L Chloride 96 L D (100-110) mmol/L Carbon Dioxide 30 (21-32) mmol/L BUN 16 (7-18) mg/dL Creatinine 1.1 H (0.55-1.02) mg/dL Est Cr Clr Drug Dosing TNP Estimated GFR (MDRD) 48 L (>60) BUN/Creatinine Ratio 14.5 (9-20) Glucose 117 H (80-116) mg/dL Calcium 9.2 (8.6-10.2) mg/dL Magnesium 1.3 L (1.8-2.5) mg/dL Total Bilirubin 0.4 (0.1-1.3) mg/dL AST 19 D (5-25) IU/L ALT 35 (12-36) U/L Alkaline Phosphatase 76 (56-112) IU/L C-Reactive Protein 0.2 L (0.5-0.9) mg/dL Total Protein 6.9 (6.0-8.0) g/dL Albumin 3.7 (3.2-4.6) g/dL Globulin 3.2 g/dL Albumin/Globulin Ratio 1.2 Lipase 89 (73-393) U/L Meds: Medications Discontinued Medications Generic Name Dose Route Start Last Admin Trade Name Lashonda PRN Reason Stop Dose Admin Sodium Chloride 500 mls @ 999 mls/hr 03/28/20 17:46 03/28/20 18:45 Normal Saline IV 03/28/20 18:16 999 mls/hr .BOLUS ONE Administration Iopamidol 100 ml 03/28/20 18:07 03/28/20 18:28 Isovue-370 (76%) IV 03/28/20 18:08 100 ml . DIRECTED ONE Administration Magnesium Sulfate 2 gm 03/28/20 17:46 03/28/20 18:19 Magnesium Sulfate In Water Premix IV 03/28/20 17:47 2 gm ONETIME ONE Administration Pantoprazole Sodium 40 mg 03/28/20 17:46 03/28/20 18:04 Protonix Iv IVPUSH 03/28/20 17:47 40 mg ONETIME ONE Administration Sodium Chloride 10 ml 03/28/20 16:14 Saline Flush FLUSH ASDIRECTED PRN Keep Vein Open - Radiology Interpretation Free Text/Narrative:: CT scan of the abdomen and pelvis shows no acute abnormality in the abdomen and pelvis per the [facility] L radiologist. There is colonic diverticulosis which was present on previous scan. There is a left adrenal nodule that is unchanged from 09/13/2019. There is a cyst in the lower pole of the left kidney which is changed. There is also evidence of choledocholithiasis but no bile duct dilatation or any evidence of inflammation. - Re-Assessments/Exams Free Text/Narrative Re-Assessment/Exam: 03/28/20 20:45: The patient reports that she feels somewhat better after the IV magnesium, IV fluids and IV Protonix. Her abdomen is soft and less tender than earlier. She has remained vitally stable. She has had no further bloody stools. Her blood tests are all reassuring. Her hemoglobin is 10.9 but it is much improved from the previous study which was in the 8 range. The magnesium was somewhat low but all other tests were pretty normal. The CT scan of her abdomen and pelvis did not show anything acute but she does have gallstones and the patient did not know that she had gallstones from previous. I do not feel that the upper abdominal pain that she has been having for the past 2 months is related to the bright red blood that she has had 2 over the past 3 days. She is arty on Protonix and I will place her on Carafate. I will also place the patient on magnesium oxide twice daily for the next week. The patient is planning on following up with Dr. Mckay tomorrow or the next day through the [facility] in [place]. Precautions and reasons for return to the emergency department were discussed with the patient while she was in the emergency department either detailed in the patient's discharge instructions. Departure - Departure Time of Disposition: 21:10 Disposition: Home, Self-Care 01 Condition: Good (Stable.) Clinical Impression: Rectal bleeding, Hypomagnesemia Abdominal pain Qualifiers: Abdominal location: epigastric Qualified Code(s): R10.13 - Epigastric pain - Discharge Information Prescriptions: Sucralfate [Carafate] 1 gm PO QIDACANDBED #480 ml Magnesium Oxide [Magnesium] 400 mg PO BID 7 Days #14 tablet Instructions: Hypomagnesemia, Abdominal Pain, Adult, [id number], Lower Gastrointestinal Bleeding, Rectal Bleeding, [id number] Referrals: Светлана Mckay MD [Primary Care Provider] - Forms: ED Department Discharge Additional Instructions: Your red blood cell count was improved from September of this year. The remainder of your blood tests were reassuringly normal except for low magnesium which you have had in the past. Your liver tests were normal. The CT scan of your abdomen and pelvis did not show anything new but it did show that you had gallstones which apparently was demonstrated on a previous CT scan as well. It does not appear that these are causing any problems at this point but this could be part of the reason you are having the recurring abdominal pain. It could also be due to a problem with your stomach or esophagus that is not being adequately treated with the Protonix that you were on. You need to follow-up with your primary doctor this week as you will need outpatient testing which will probably include upper endoscopy and possibly referral to a gastroenterology specialist. You should continue to take your Protonix and I am also placing you on Carafate for the next 2 weeks to see if that will help with your symptoms. In addition I am placing you on magnesium tablets for the next week. Rest. No strenuous activity. Back to the emergency department for recurrent bleeding from your rectum, worsening abdominal pain, unrelenting vomiting, fever, severe weakness or any other concerning sign or symptom. Sepsis Event Note (ED) - Focused Exam Vital Signs: Vital Signs Temp Pulse Resp BP Pulse Ox 03/28/20 20:48 80 18 153/86 H 99 03/28/20 19:25 36.3 C 75 16 151/83 H 98 03/28/20 15:00 36.2 C 103 H 17 152/63 H 98 - My Orders Last 24 Hours: My Active Orders 03/28/20 16:14 Peripheral IV Insertion Adult [OM.PC] Routine 03/28/20 17:47 Abdomen Pelvis w Cont [CT] Stat - Assessment/Plan Last 24 Hours: My Active Orders 03/28/20 16:14 Peripheral IV Insertion Adult [OM.PC] Routine 03/28/20 17:47 Abdomen Pelvis w Cont [CT] Stat
[2020-03-28] MEDS ORDERED: Sodium Chloride 0.9% 10 ML Syringe FLUSH PRN (16:14)
[2020-03-28] MEDS ORDERED: Sodium Chloride 0.9% 500 ML IV ONE (17:46)
[2020-03-28] MEDS ORDERED: Pantoprazole 40 MG Vial IVPUSH ONE (17:46)
[2020-03-28] MEDS ORDERED: Magnesium Sulfate/Water 2 GM/50 ML Premix Bag IV ONE (17:46)
[2020-03-28] MEDS ORDERED: Iopamidol 755 Mg/ML 100 ML Bottle IV ONE (18:07)
[2020-03-28 21:00] VITALS: BP 153/86; PULSE 80
== END 2020-03-28 21:38 | disposition home or self-care (01) ==
LOC: FB.ED 14:44
DX: K62.5 Hemorrhage of anus and rectum (principal); E83.42 Hypomagnesemia; R10.13 Epigastric pain; I10 Essential (primary) hypertension; E78.00 Pure hypercholesterolemia, unspecified; K21.9 Gastro-esophageal reflux disease without esophagitis; E11.9 Type 2 diabetes mellitus without complications; F41.9 Anxiety disorder, unspecified; F32.9 Major depressive disorder, single episode, unspecified; Z88.5 Allergy status to narcotic agent; Z88.1 Allergy status to other antibiotic agents; Z79.899 Other long term (current) drug therapy
CPT/HCPCS: 36415; 74177; 80053; 83690; 83735; 85025; 86140; 96361; 96374; 96375; 99284; C9113; J3475; J7040; Q9967

== ENCOUNTER 2020-05-29 08:27 | Emergency (ER) | payer MEDICARE ==
[2020-05-29] MEDS ORDERED: Ondansetron 4 MG Tab.DIS PO ONE (08:28)
[2020-05-29 09:12] VITALS: BP 141/90; PULSE 91
--- NOTE | 2020-05-29 09:18 | EDM.PDOC ---
ED HPI GENERAL MEDICAL PROBLEM - General Chief Complaint: Abdominal Pain Stated Complaint: ABD PAIN Time Seen by Provider: 05/29/20 09:12 Source of Information: Reports: Patient History Limitations: Reports: No Limitations - History of Present Illness INITIAL COMMENTS - FREE TEXT/NARRATIVE: pt with Hx of anxiety and frequent visits to ER, comes in from home by EMS with c/o epigastric burning pain x 2 days with nausea , report loose multiple BMs, denies fever chills , emesis, or any resp or CV sx or any other associated sx or concerns. pt denies Hx of GI problems or abd surgeries. Treatments [employer]AURANT CULINARY MANAGER: Reports: Other (see below) Other Treatments RESTAURANT CULINARY MANAGER: 500ml NS IV, 4mg zofran IV. abdomen Pain Score (Numeric/FACES): 7 - Related Data Allergies Allergy/AdvReac Type Severity Reaction Status Date / Time amitriptyline Allergy Cannot Verified 05/29/20 08:53 Remember codeine Allergy Cannot Verified 05/29/20 08:53 Remember tetracycline Allergy Cannot Verified 05/29/20 08:53 Remember Home Meds: Home Meds Benazepril [Lotensin] 40 mg PO BEDTIME 01/24/19 [History] Cholecalciferol (Vitamin D3) [Vitamin D3] 25 mcg PO DAILY 01/24/19 [History] Ibandronate Sodium 150 mg PO Q30D 01/24/19 [History] Montelukast Sodium 10 mg PO BEDTIME 01/24/19 [History] atorvaSTATin Calcium [Atorvastatin Calcium] 40 mg PO DAILY 01/24/19 [History] Multivitamins,Therapeutic [Thera] 1 tab PO DAILY 03/05/19 [History] Trolamine Salicylate/Aloe Vera [Aspercreme 10%] 0 gm TOP QID PRN tube 03/31/19 [Rx] Acetaminophen [Tylenol] 650 mg PO Q4H PRN 09/16/19 [History] Citalopram [Citalopram HBr] 40 mg PO DAILY 09/16/19 [History] Melatonin 3 mg PO BEDTIME PRN 09/16/19 [History] Pantoprazole [ProTONIX] 40 mg PO DAILY 09/16/19 [History] Ozempic 0.5 mg SUBCUT SA 09/17/19 [History] Ferrous Sulfate 325 mg PO TIDMEALS #0 09/19/19 [Rx] Magnesium Oxide [Magnesium] 400 mg PO BID 7 Days #14 tablet 03/28/20 [Rx] Sucralfate [Carafate] 1 gm PO QIDACANDBED #480 ml 03/28/20 [Rx] Past Medical History HEENT History: Reports: Impaired Vision Cardiovascular History: Reports: High Cholesterol, Hypertension, SOB on Exertion Respiratory History: Reports: SOB Gastrointestinal History: Reports: Gastritis, GERD, Other (See Below) Other Gastrointestinal History: Lactose intolerant 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 Endocrine/Metabolic History: Reports: Diabetes, Type II Hematologic History: Reports: Blood Transfusion(s) Dermatologic History: Reports: Other (See Below) Other Dermatologic History: RASH AND C\O OF SOME ITCHING AT TIMES WITH A RASH. - Infectious Disease History Infectious Disease History: Reports: Chicken Pox, Shingles - Past Surgical History GI Surgical History: Reports: Colonoscopy Neurological Surgical History: Reports: Other (See Below) Other Neurological Surgeries/Procedures: PT HAD SURGERY ON RIGHT SIDE OF FACE IN FRONT OF HER EAR IN PAST. Musculoskeletal Surgical History: Reports: Hip Replacement, Shoulder Surgery, Other (See Below) Other Musculoskeletal Surgeries/Procedures:: FRACTURED HUMERUS CURRENTLY AND S\P RIGHT HIP REPLACEMENT ON 02/28/2019 ON HIP - Past Imaging History Past Imaging History: Reports: Cardiac Echo (10/04/2018) Social & Family History - Family History Family Medical History: No Pertinent Family History Cardiac: Reports: CAD, PA Other OBGYN Family History: Breast cancer: Paternal aunt Neurological: Reports: CVA Psychiatric: Reports: Other (See Below) - Caffeine Use Caffeine Use: Reports: Soda Caffeine Use Comment: states that she only drinks diet coke once a week. - Living Situation & Occupation Living situation: Reports: Alone Occupation: Retired ED ROS GENERAL - Review of Systems Review Of Systems: See Below Constitutional: Reports: Fatigue. Denies: Fever, Night Sweats HEENT: Reports: No Symptoms Respiratory: Reports: No Symptoms Cardiovascular: Reports: No Symptoms GI/Abdominal: Reports: Abdominal Pain, Diarrhea, Decreased Appetite, Nausea. Denies: Black Stool, Bloody Stool, Constipation, Distension, Mucous in Stool, Vomiting : Reports: No Symptoms Musculoskeletal: Reports: No Symptoms Skin: Reports: No Symptoms Neurological: Reports: No Symptoms Psychiatric: Reports: Anxiety ED EXAM, GENERAL - Physical Exam Exam: See Below Exam Limited By: No Limitations General Appearance: Alert, Anxious, Mild Distress Eye Exam: Bilateral Eye: Normal Inspection Nose: Normal Inspection Throat/Mouth: Normal Oropharynx Head: Atraumatic, Normocephalic Neck: Normal Inspection, Supple, Non-Tender Respiratory/Chest: No Respiratory Distress, Lungs Clear, Normal Breath Sounds Cardiovascular: Normal Peripheral Pulses GI/Abdominal: Normal Bowel Sounds, Soft, Non-Tender Back Exam: Normal Inspection Extremities: Normal Inspection, Normal Range of Motion, Non-Tender Neurological: Alert, Oriented, CN II-XII Intact, No Motor/Sensory Deficits Skin Exam: Warm Course - Vital Signs Text/Narrative:: labs results were explained to pt , pt is comfortable after gi cocktail , fluids and zofran . pt tested positive for covid , and she appear experiencing mostly mild GI symptoms related to this infection, she is stable for discharge home with supportive mng and quarantine instructions. Last Recorded V/S: Last Vital Signs Temp 36.6 C 05/29/20 08:34 Pulse 91 05/29/20 08:34 Resp 19 05/29/20 08:34 BP 141/90 H 05/29/20 08:34 Pulse Ox 100 05/29/20 08:34 - Orders/Labs/Meds Labs: Laboratory Tests 05/29/20 05/29/20 05/29/20 Range/Units 09:25 09:40 09:40 WBC 6.5 (3.0-10.3) x10-3/uL RBC 4.20 (3.60-5.20) x10(6)uL Hgb 11.0 L (11.4-15.5) g/dL Hct 32.7 L (34.2-48.2) % MCV 78.0 (76.7-100.5) fL MCH 26.1 (23.9-33.9) pg MCHC 33.5 (31.9-34.8) g/dL RDW 13.8 (12.3-16.5) % Plt Count 217 (151-488) x10(3)uL MPV 8.5 (7.1-12.4) fL Neut % (Auto) 78.0 H (30.8-76.2) % Lymph % (Auto) 11.7 L (18.4-52.1) % [place] % (Auto) 9.9 (4.4-15.7) % Eos % (Auto) 0.2 L (0.6-8.1) % Baso % (Auto) 0.2 (0.2-1.5) % Neut # (Auto) 5.1 (1.5-6.3) x10-3/uL Lymph # (Auto) 0.8 L (1.0-4.4) x10-3/uL [place] # (Auto) 0.6 (0.3-1.0) x10-3/uL Eos # (Auto) 0.0 (0.0-0.8) x10-3/uL Baso # (Auto) 0.0 (0.0-0.1) x10-3/uL Sodium 129 L (135-145) mmol/L Potassium 3.1 L (3.5-5.3) mmol/L Chloride 90 L D (100-110) mmol/L Carbon Dioxide 27 (21-32) mmol/L BUN 13 (7-18) mg/dL Creatinine 1.1 H (0.55-1.02) mg/dL Est Cr Clr Drug Dosing 33.87 mL/min Estimated GFR (MDRD) 48 L (>60) BUN/Creatinine Ratio 11.8 (9-20) Glucose 136 H (80-116) mg/dL Calcium 8.3 L (8.6-10.2) mg/dL Total Bilirubin 0.7 (0.1-1.3) mg/dL AST 36 H D (5-25) IU/L ALT 40 H D (12-36) U/L Alkaline Phosphatase 86 (56-112) IU/L Troponin I (4.0-60.3) pg/mL Total Protein 7.0 (6.0-8.0) g/dL Albumin 3.5 (3.2-4.6) g/dL Globulin 3.5 g/dL Albumin/Globulin Ratio 1.0 Amylase 49 (25-115) U/L Lipase (73-393) U/L Urine Color (YELLOW) Urine Appearance (CLEAR) Urine pH (5.0-6.5) Ur Specific [place] (1.010-1.025) Urine Protein (NEGATIVE) mg/dL Urine Glucose (UA) (NORMAL) mg/dL Urine Ketones (NEGATIVE) mg/dL Urine Occult Blood (NEGATIVE) Urine Nitrite (NEGATIVE) Urine Bilirubin (NEGATIVE) Urine Urobilinogen (NEGATIVE) mg/dL Ur Leukocyte Esterase (NEGATIVE) Urine WBC (0-5) Ur Squamous Epith Cells (NS,R,O) Urine Bacteria (NS) SARS-CoV-2 RNA (PAPA) Positive H (NEGATIVE) 05/29/20 05/29/20 Range/Units 09:40 09:45 WBC (3.0-10.3) x10-3/uL RBC (3.60-5.20) x10(6)uL Hgb (11.4-15.5) g/dL Hct (34.2-48.2) % MCV (76.7-100.5) fL MCH (23.9-33.9) pg MCHC (31.9-34.8) g/dL RDW (12.3-16.5) % Plt Count (151-488) x10(3)uL MPV (7.1-12.4) fL Neut % (Auto) (30.8-76.2) % Lymph % (Auto) (18.4-52.1) % [place] % (Auto) (4.4-15.7) % Eos % (Auto) (0.6-8.1) % Baso % (Auto) (0.2-1.5) % Neut # (Auto) (1.5-6.3) x10-3/uL Lymph # (Auto) (1.0-4.4) x10-3/uL [place] # (Auto) (0.3-1.0) x10-3/uL Eos # (Auto) (0.0-0.8) x10-3/uL Baso # (Auto) (0.0-0.1) x10-3/uL Sodium (135-145) mmol/L Potassium (3.5-5.3) mmol/L Chloride (100-110) mmol/L Carbon Dioxide (21-32) mmol/L BUN (7-18) mg/dL Creatinine (0.55-1.02) mg/dL Est Cr Clr Drug Dosing mL/min Estimated GFR (MDRD) (>60) BUN/Creatinine Ratio (9-20) Glucose (80-116) mg/dL Calcium (8.6-10.2) mg/dL Total Bilirubin (0.1-1.3) mg/dL AST (5-25) IU/L ALT (12-36) U/L Alkaline Phosphatase (56-112) IU/L Troponin I 7.6 (4.0-60.3) pg/mL Total Protein (6.0-8.0) g/dL Albumin (3.2-4.6) g/dL Globulin g/dL Albumin/Globulin Ratio Amylase (25-115) U/L Lipase 91 (73-393) U/L Urine Color Yellow (YELLOW) Urine Appearance Clear (CLEAR) Urine pH 7.0 H (5.0-6.5) Ur Specific [place] 1.005 L (1.010-1.025) Urine Protein Negative (NEGATIVE) mg/dL Urine Glucose (UA) Normal (NORMAL) mg/dL Urine Ketones Negative (NEGATIVE) mg/dL Urine Occult Blood Negative (NEGATIVE) Urine Nitrite Negative (NEGATIVE) Urine Bilirubin Negative (NEGATIVE) Urine Urobilinogen Normal (NEGATIVE) mg/dL Ur Leukocyte Esterase Negative (NEGATIVE) Urine WBC 0-5 (0-5) Ur Squamous Epith Cells Occasional (NS,R,O) Urine Bacteria Few H (NS) SARS-CoV-2 RNA (PAPA) (NEGATIVE) Meds: Medications Discontinued Medications Generic Name Dose Route Start Last Admin Trade Name Freq PRN Reason Stop Dose Admin Al Hydroxide/Mg Hydroxide 15 0 ml 05/29/20 11:06 05/29/20 11:15 ml/ Lidocaine HCl 15 ml PO 05/29/20 11:07 15 ml ONETIME ONE Administration Ondansetron HCl 4 mg 05/29/20 11:09 05/29/20 11:14 Zofran IVPUSH 05/29/20 11:10 4 mg ONETIME ONE Administration Departure - Departure Time of Disposition: 13:04 Disposition: Home, Self-Care 01 Clinical Impression: COVID-19 - Discharge Information Referrals: Светлана Mckay MD [Primary Care Provider] - Forms: ED Department Discharge Sepsis Event Note (ED) - Focused Exam Vital Signs: Vital Signs Temp Pulse Resp BP Pulse Ox 05/29/20 08:34 36.6 C 91 19 141/90 H 100
[2020-05-29] MEDS ORDERED: Ondansetron 4 MG/2 ML SDV IVPUSH ONE (11:09)
[2020-05-29] MEDS: Alum Hydroxide/Mag Hydroxide 15 ML, Lidocaine 2% 15 ML PO ONE ×4 (11:14→11:15)
== END 2020-05-29 14:44 | disposition home or self-care (01) ==
LOC: FB.ED 08:27
DX: U07.1 COVID-19 (principal); R10.9 Unspecified abdominal pain; E78.00 Pure hypercholesterolemia, unspecified; I10 Essential (primary) hypertension; K21.9 Gastro-esophageal reflux disease without esophagitis; F41.9 Anxiety disorder, unspecified; F32.9 Major depressive disorder, single episode, unspecified; E11.9 Type 2 diabetes mellitus without complications; Z88.5 Allergy status to narcotic agent; Z88.1 Allergy status to other antibiotic agents; Z88.8 Allergy status to other drugs, medicaments and biological substances; Z79.899 Other long term (current) drug therapy
CPT/HCPCS: 36415; 80053; 81001; 82150; 83690; 84484; 85025; 93005; 96374; 99283; 99284; A9270; J2405; U0002

== ENCOUNTER 2020-09-06 17:11 | Emergency (ER) | payer MEDICARE ==
[2020-09-06] MEDS ORDERED: Sodium Chloride 0.9% 10 ML Syringe FLUSH PRN (18:12)
--- NOTE | 2020-09-06 18:12 | EDM.PDOC ---
ED HPI GENERAL MEDICAL PROBLEM - General Stated Complaint: CHEST PAIN Time Seen by Provider: 09/06/20 18:00 Source of Information: Reports: Patient History Limitations: Reports: No Limitations - History of Present Illness INITIAL COMMENTS - FREE TEXT/NARRATIVE: 80-year-old female who reports that she has been having ongoing problems with burning pain in her epigastrium. This episode of burning pain began on Sunday morning. She awoke with the pain and it is a burning pain that she rates as a 10/10. She states that it seems to be worse when she tries to eat or drink. She has been taking Mylanta, Tums and baking soda water with minimal relief of her symptoms. States that after the baking soda water she may have some slight relief for about 5 minutes and then the pain comes back. It does seem to go into her mid back at times but is currently not there. She has had no nausea or vomiting. She has been eating but not that well because it does increase her pain. She states that she is followed through Dr. Mckay and has been on several "stomach meds" and "they don't help". She was told by her primary doctor to come into the emergency department to be checked possible heart attack. It should be noted that her pain has been continual since Sunday and she has had no relief of her symptoms over that time. There have been no fevers or chills. No difficulty breathing. In reviewing the patient's medical record, she has been in the emergency department multiple times for similar complaints with negative workups each time. She has had no cough or difficulty breathing. At that she had COVID and May 2020 and has had the vaccine (the 2 shot vaccine) There are no other associated signs or symptoms. There are no other modifying factors. 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: Reports: Other Medication(s) (Tums, Mylanta, baking soda or water) Right Upper Abdomen Pain Score (Numeric/FACES): 10 - Related Data Allergies Allergy/AdvReac Type Severity Reaction Status Date / Time amitriptyline Allergy Cannot Verified 05/29/20 08:53 Remember codeine Allergy Cannot Verified 05/29/20 08:53 Remember tetracycline Allergy Cannot Verified 05/29/20 08:53 Remember Home Meds: Home Meds Benazepril [Lotensin] 40 mg PO BEDTIME 01/24/19 [History] Cholecalciferol (Vitamin D3) [Vitamin D3] 25 mcg PO DAILY 01/24/19 [History] Ibandronate Sodium 150 mg PO Q30D 01/24/19 [History] Montelukast Sodium 10 mg PO BEDTIME 01/24/19 [History] atorvaSTATin Calcium [Atorvastatin Calcium] 40 mg PO DAILY 01/24/19 [History] Multivitamins,Therapeutic [Thera] 1 tab PO DAILY 03/05/19 [History] Trolamine Salicylate/Aloe Vera [Aspercreme 10%] 0 gm TOP QID PRN tube 03/31/19 [Rx] Acetaminophen [Tylenol] 650 mg PO Q4H PRN 09/16/19 [History] Citalopram [Citalopram HBr] 40 mg PO DAILY 09/16/19 [History] Melatonin 3 mg PO BEDTIME PRN 09/16/19 [History] Pantoprazole [ProTONIX] 40 mg PO DAILY 09/16/19 [History] Ozempic 0.5 mg SUBCUT SA 09/17/19 [History] Ferrous Sulfate 325 mg PO TIDMEALS #0 09/19/19 [Rx] Magnesium Oxide [Magnesium] 400 mg PO BID 7 Days #14 tablet 03/28/20 [Rx] Sucralfate [Carafate] 1 gm PO QIDACANDBED #480 ml 03/28/20 [Rx] Ondansetron [Zofran ODT] 4 mg PO Q6H PRN #20 tab.dis 05/29/20 [Rx] Past Medical History HEENT History: Reports: Impaired Vision Other HEENT History: GLASSES Cardiovascular History: Reports: High Cholesterol, Hypertension, SOB on Exertion Gastrointestinal History: Reports: Gastritis, GERD, Other (See Below) Other Gastrointestinal History: Lactose intolerant Musculoskeletal History: Reports: Back Pain, Chronic, Fracture Other Musculoskeletal History: R humerous fx, R hip, R shoulder Neurological History: Reports: CVA Psychiatric History: Reports: Anxiety, Depression Other Psychiatric History: MENTAL HEALTH ISSUES. Endocrine/Metabolic History: Reports: Diabetes, Type II Hematologic History: Reports: Anemia, Blood Transfusion(s) Dermatologic History: Reports: Other (See Below) Other Dermatologic History: RASH AND C\\O OF SOME ITCHING AT TIMES WITH A RASH. - Infectious Disease History Infectious Disease History: Reports: Chicken Pox, Shingles - Past Surgical History GI Surgical History: Reports: Colonoscopy Neurological Surgical History: Reports: Other (See Below) Other Neurological Surgeries/Procedures: PT HAD SURGERY ON RIGHT SIDE OF FACE IN FRONT OF HER EAR IN PAST. Musculoskeletal Surgical History: Reports: Hip Replacement, Shoulder Surgery, Other (See Below) Other Musculoskeletal Surgeries/Procedures:: FRACTURED HUMERUS CURRENTLY AND S\\P RIGHT HIP REPLACEMENT ON 02/28/2019 ON HIP - Past Imaging History Past Imaging History: Reports: Cardiac Echo (10/04/2018) Social & Family History - Family History Cardiac: Reports: CAD, [place] Other OBGYN Family History: Breast cancer: Paternal aunt Neurological: Reports: CVA Psychiatric: Reports: Other (See Below) - Tobacco Use Tobacco Use Status *Q: Unknown Ever Used Tobacco (Nonsmoker) - Caffeine Use Caffeine Use: Reports: Soda Caffeine Use Comment: states that she only drinks diet coke once a week. - Alcohol Use Alcohol Use History: No - Living Situation & Occupation Living situation: Reports: Alone Occupation: Retired ED ROS GENERAL - Review of Systems Review Of Systems: See Below Constitutional: Reports: No Symptoms HEENT: Reports: No Symptoms Respiratory: Reports: No Symptoms Cardiovascular: Reports: No Symptoms GI/Abdominal: Reports: Abdominal Pain. Denies: Nausea, Vomiting : Reports: No Symptoms Musculoskeletal: Reports: No Symptoms Skin: Reports: No Symptoms Neurological: Reports: No Symptoms Psychiatric: Reports: No Symptoms Hematologic/Lymphatic: Reports: No Symptoms Immunologic: Reports: No Symptoms ED EXAM, GENERAL - Physical Exam Exam: See Below Exam Limited By: No Limitations General Appearance: Alert, Anxious, Moderate Distress, Obese, Other (Appears in pain but does not appear toxic.) Eye Exam: Bilateral Eye: EOMI, Normal Inspection (Sclera are anicteric.) Ears: Normal External Exam, Hearing Grossly Normal Ear Exam: Bilateral Ear: Auricle Normal Nose: Normal Inspection, Normal Mucosa, No Blood Throat/Mouth: Normal Inspection, Normal Oropharynx, Normal Voice, No Airway Compromise Head: Atraumatic, Normocephalic Neck: Normal Inspection, Supple, Non-Tender, Full Range of Motion Respiratory/Chest: No Respiratory Distress, Lungs Clear, Normal Breath Sounds, No Accessory Muscle Use, Chest Non-Tender Cardiovascular: Normal Peripheral Pulses, Regular Rate, Rhythm, No Murmur Peripheral Pulses: 2+: Radial (L), Radial (R), Dorsalis Pedis (L), Dorsalis Pedis (R) GI/Abdominal: Normal Bowel Sounds, Soft, No Mass, Tender Back Exam: Normal Inspection, Full Range of Motion Extremities: Normal Inspection, Normal Range of Motion, Non-Tender, No Pedal Edema, Normal Capillary Refill Neurological: Alert, Oriented, CN II-XII Intact, Normal Cognition, No Motor/Sensory Deficits Psychiatric: Anxious Skin Exam: Warm, Dry, Intact, Normal Color, No Rash #1 Interpretation EKG Date: 09/06/20 Time: 17:36 Rhythm: NSR Rate (Beats/Min): 92 [place]: Normal P-Wave: Present QRS: Normal ST-T: Other (Nonspecific ST-T wave abnormality.) QT: Prolonged (Prolonged QTc.) Comparison: No Change (No change from an EKG that was performed on 06/06/2020.) Course - Vital Signs Last Recorded V/S: Last Vital Signs Temp 37.2 C 09/06/20 17:20 Pulse 88 09/06/20 17:20 Resp 20 09/06/20 17:20 BP 174/68 H 09/06/20 17:20 Pulse Ox 97 09/06/20 17:20 - Orders/Labs/Meds Orders: Active Orders 24 hr Category Date Time Status EKG Documentation Completion [RC] ASDIRECTED Care 09/06/20 18:13 Active Abdomen Pelvis w Cont [CT] Stat Exams 09/06/20 19:16 Taken Magnesium Sulfate/Water [Magnesium Sulfate in Water 2 Med 09/06/20 19:00 Active GM/50 ML] 2 gm in 50 ml IV ONETIME Sodium Chloride 0.9% [Normal Saline] 1,000 ml Med 09/06/20 18:30 Active IV ASDIRECTED Sodium Chloride 0.9% [Saline Flush] Med 09/06/20 18:12 Active 10 ml FLUSH ASDIRECTED PRN Peripheral IV Insertion Adult [OM.PC] Routine Oth 09/06/20 18:12 Ordered EKG 12 Lead [EK] Routine Ther 09/06/20 18:12 Ordered Medication Orders Sodium Chloride (Normal Saline) 1,000 mls @ 125 mls/hr IV ASDIRECTED MONI Magnesium Sulfate (Magnesium Sulfate In Water 2 Gm/50 Ml) 2 gm in 50 mls @ 100 mls/hr IV ONETIME MONI Last Admin: 09/06/20 19:50 Dose: 100 mls/hr Documented by: ELMO Sodium Chloride (Sodium Chloride 0.9% 10 Ml Syringe) 10 ml FLUSH ASDIRECTED PRN PRN Reason: Keep Vein Open Labs: Laboratory Tests 09/06/20 09/06/20 09/06/20 Range/Units 18:05 18:05 18:05 WBC 10.4 H (3.0-10.3) x10-3/uL RBC 4.01 (3.60-5.20) x10(6)uL Hgb 10.9 L (11.4-15.5) g/dL Hct 32.9 L (34.2-48.2) % MCV 81.9 (76.7-100.5) fL MCH 27.1 (23.9-33.9) pg MCHC 33.1 (31.9-34.8) g/dL RDW 13.9 (12.3-16.5) % Plt Count 276 (151-488) x10(3)uL MPV 8.4 (7.1-12.4) fL Neut % (Auto) 77.6 H (30.8-76.2) % Lymph % (Auto) 12.9 L (18.4-52.1) % Henry % (Auto) 8.0 (4.4-15.7) % Eos % (Auto) 1.2 (0.6-8.1) % Baso % (Auto) 0.3 (0.2-1.5) % Neut # (Auto) 8.1 H (1.5-6.3) x10-3/uL Lymph # (Auto) 1.3 (1.0-4.4) x10-3/uL Henry # (Auto) 0.8 (0.3-1.0) x10-3/uL Eos # (Auto) 0.1 (0.0-0.8) x10-3/uL Baso # (Auto) 0.0 (0.0-0.1) x10-3/uL D-Dimer, Quantitative (0.0-0.59) mg/LFEU Sodium 136 (135-145) mmol/L Potassium 3.1 L (3.5-5.3) mmol/L Chloride 92 L (100-110) mmol/L Carbon Dioxide 34 H (21-32) mmol/L BUN 19 H (7-18) mg/dL Creatinine 1.3 H (0.55-1.02) mg/dL Est Cr Clr Drug Dosing 27.56 mL/min Estimated GFR (MDRD) 40 L (>60) BUN/Creatinine Ratio 14.6 (9-20) Glucose 177 H (80-116) mg/dL Calcium 9.9 (8.6-10.2) mg/dL Magnesium 1.6 L (1.8-2.5) mg/dL Total Bilirubin 0.4 (0.1-1.3) mg/dL AST 22 D (5-25) IU/L ALT 33 D (12-36) U/L Alkaline Phosphatase 83 (56-112) IU/L Troponin I 7.8 (4.0-60.3) pg/mL Total Protein 7.1 (6.0-8.0) g/dL Albumin 3.8 (3.2-4.6) g/dL Globulin 3.3 g/dL Albumin/Globulin Ratio 1.2 Lipase (73-393) U/L 09/06/20 09/06/20 Range/Units 18:05 18:05 WBC (3.0-10.3) x10-3/uL RBC (3.60-5.20) x10(6)uL Hgb (11.4-15.5) g/dL Hct (34.2-48.2) % MCV (76.7-100.5) fL MCH (23.9-33.9) pg MCHC (31.9-34.8) g/dL RDW (12.3-16.5) % Plt Count (151-488) x10(3)uL MPV (7.1-12.4) fL Neut % (Auto) (30.8-76.2) % Lymph % (Auto) (18.4-52.1) % Henry % (Auto) (4.4-15.7) % Eos % (Auto) (0.6-8.1) % Baso % (Auto) (0.2-1.5) % Neut # (Auto) (1.5-6.3) x10-3/uL Lymph # (Auto) (1.0-4.4) x10-3/uL Henry # (Auto) (0.3-1.0) x10-3/uL Eos # (Auto) (0.0-0.8) x10-3/uL Baso # (Auto) (0.0-0.1) x10-3/uL D-Dimer, Quantitative 0.47 (0.0-0.59) mg/LFEU Sodium (135-145) mmol/L Potassium (3.5-5.3) mmol/L Chloride (100-110) mmol/L Carbon Dioxide (21-32) mmol/L BUN (7-18) mg/dL Creatinine (0.55-1.02) mg/dL Est Cr Clr Drug Dosing mL/min Estimated GFR (MDRD) (>60) BUN/Creatinine Ratio (9-20) Glucose (80-116) mg/dL Calcium (8.6-10.2) mg/dL Magnesium (1.8-2.5) mg/dL Total Bilirubin (0.1-1.3) mg/dL AST (5-25) IU/L ALT (12-36) U/L Alkaline Phosphatase (56-112) IU/L Troponin I (4.0-60.3) pg/mL Total Protein (6.0-8.0) g/dL Albumin (3.2-4.6) g/dL Globulin g/dL Albumin/Globulin Ratio Lipase 87 (73-393) U/L Meds: Medications Generic Name Dose Route Start Last Admin Trade Name Freq PRN Reason Stop Dose Admin Sodium Chloride 1,000 mls @ 125 mls/hr 09/06/20 18:30 Normal Saline IV ASDIRECTED MONI Magnesium Sulfate 2 gm in 50 mls @ 100 mls/hr 09/06/20 19:00 09/06/20 19:50 Magnesium Sulfate In Water 2 Gm/50 Ml IV 100 mls/hr ONETIME MONI Administration Sodium Chloride 10 ml 09/06/20 18:12 Sodium Chloride 0.9% 10 Ml Syringe FLUSH ASDIRECTED PRN Keep Vein Open Discontinued Medications Generic Name Dose Route Start Last Admin Trade Name Lashonda PRN Reason Stop Dose Admin Sodium Chloride 500 mls @ 999 mls/hr 09/06/20 18:29 09/06/20 19:18 Normal Saline IV 09/06/20 18:59 999 mls/hr .BOLUS ONE Administration Potassium Chloride 10 meq/ 100 mls @ 100 mls/hr 09/06/20 18:55 Premix IV 09/06/20 19:54 ONETIME ONE Iopamidol 75 ml 09/06/20 19:25 09/06/20 19:43 Iopamidol 755 Mg/Ml 75 Ml Bottle IV 09/06/20 19:26 75 ml ASDIRECTED ONE Administration Morphine Sulfate 4 mg 09/06/20 18:29 09/06/20 19:19 Morphine 4 Mg/Ml Vial IVPUSH 09/06/20 18:30 4 mg ONETIME ONE Administration Ondansetron HCl 4 mg 09/06/20 18:29 09/06/20 19:19 Ondansetron 4 Mg/2 Ml Sdv IVPUSH 09/06/20 18:30 4 mg ONETIME ONE Administration - Re-Assessments/Exams Free Text/Narrative Re-Assessment/Exam: 09/06/20 19:15: The patient's troponin was normal. Her EKG is unchanged from previous. She does not appear to have any cardiac problem causing these symptoms. Her magnesium and potassium were somewhat low. She does have some evidence of dehydration. I am giving her normal saline as a bolus and she will need to have some supplemental potassium and magnesium. I have ordered a CT scan of her abdomen and pelvis because of her severe abdominal pain. 09/06/20 20:10: Patient was resting comfortably when I came into the room. When awakened, she states that her pain is improved but still present and she states "I don't really feel that I can go home". She does have some mild electrolyte abnormalities as had in the past. I did not see any indication for admission at this point. The CT scan of her abdomen and pelvis is pending at this time. I will give the patient oral replacement of her potassium now and IV magnesium. At this point, I am turning the patient over to Dr. Orosco pending results of the CT scan. Departure - Departure Time of Disposition: 20:15 Disposition: Still A Patient 30 Condition: Fair Clinical Impression: Abdominal pain of unknown etiology, Hypokalemia, Hypomagnesemia Referrals: Светлана Mckay MD [Primary Care Provider] - Sepsis Event Note (ED) - Focused Exam Vital Signs: Vital Signs Temp Pulse Resp BP Pulse Ox 09/06/20 17:20 37.2 C 88 20 174/68 H 97 - My Orders Last 24 Hours: My Active Orders 09/06/20 18:12 Sodium Chloride 0.9% [Saline Flush] 10 ml FLUSH ASDIRECTED PRN Peripheral IV Insertion Adult [OM.PC] Routine EKG 12 Lead [EK] Routine 09/06/20 18:13 EKG Documentation Completion [RC] ASDIRECTED 09/06/20 18:30 Sodium Chloride 0.9% [Normal Saline] 1,000 ml IV ASDIRECTED 09/06/20 19:00 Magnesium Sulfate/Water [Magnesium Sulfate in Water 2 GM/50 ML] 2 gm in 50 ml IV ONETIME 09/06/20 19:16 Abdomen Pelvis w Cont [CT] Stat - Assessment/Plan Last 24 Hours: My Active Orders 09/06/20 18:12 Sodium Chloride 0.9% [Saline Flush] 10 ml FLUSH ASDIRECTED PRN Peripheral IV Insertion Adult [OM.PC] Routine EKG 12 Lead [EK] Routine 09/06/20 18:13 EKG Documentation Completion [RC] ASDIRECTED 09/06/20 18:30 Sodium Chloride 0.9% [Normal Saline] 1,000 ml IV ASDIRECTED 09/06/20 19:00 Magnesium Sulfate/Water [Magnesium Sulfate in Water 2 GM/50 ML] 2 gm in 50 ml IV ONETIME 09/06/20 19:16 Abdomen Pelvis w Cont [CT] Stat
[2020-09-06] MEDS ORDERED: Ondansetron 4 MG/2 ML SDV IVPUSH ONE (18:29)
[2020-09-06] MEDS ORDERED: Sodium Chloride 0.9% 500 ML IV ONE (18:29)
[2020-09-06] MEDS ORDERED: Morphine 4 MG/ML VIAL IVPUSH ONE (18:29)
[2020-09-06] MEDS ORDERED: Sodium Chloride 0.9% 1,000 ML IV SCH (18:30)
[2020-09-06] MEDS ORDERED: Potassium Chloride 10 MEQ in Premix Bag 1 BAG IV ONE (18:55)
[2020-09-06] MEDS ORDERED: Magnesium Sulfate/Water 2 GM/50 ML BAG IV SCH (19:00)
[2020-09-06] MEDS ORDERED: Iopamidol 755 Mg/ML 75 ML Bottle IV ONE (19:25)
[2020-09-06] MEDS ORDERED: Potassium Chloride 20 MEQ Packet PO SCH (20:30)
[2020-09-06] MEDS ORDERED: HYDROmorphone 2 MG/ML SDV IVPUSH STA (20:31)
[2020-09-06] MEDS ORDERED: Alum Hydroxide/Mag Hydroxide 15 ML, Lidocaine 2% 15 ML PO STA ×2 (20:33)
[2020-09-06] MEDS ORDERED: Meclizine 25 MG Tab PO ONE (22:31)
[2020-09-06] MEDS ORDERED: Ondansetron 4 MG Tab.DIS PO STA (22:35)
[2020-09-06] MEDS ORDERED: Ondansetron 4 MG Tab.DIS ONE (22:36)
[2020-09-06] MEDS ORDERED: Potassium Chloride 20 MEQ Tab.ER PO STA (22:52)
--- NOTE | 2020-09-06 23:29 | PCM.SN.2 ---
- Free Text/Narrative Note: See Dr. Delvalle note on details of H/P. I took care of the discharge part. I discussed the lab result and CT scan result with the patient. I told her that her potassium is low and it was replaced by Dr Hammond. She refused to take an extra oral potassium. Since her abdominal pain is better after giving morphine and dilaudid I told Kelly that she can be discharge to home and follow up with her doctor this week to discuss treatment for her gallstones. She didn't like what I told her about going home and told me " I told you I don't want to go home". I told her I don't have any reason to keep her in the hospital and then she responded back "you are rude" and I told her it's not being rude to tell patient's that they don't need hospitalization.
[2020-09-07 05:38] VITALS: PULSE 95
[2020-09-07 05:39] VITALS: BP 137/72
== END 2020-09-06 23:13 | disposition home or self-care (01) ==
LOC: FB.ED 17:11
DX: R10.13 Epigastric pain (principal); R10.11 Right upper quadrant pain; E87.6 Hypokalemia; E83.42 Hypomagnesemia; E78.00 Pure hypercholesterolemia, unspecified; I10 Essential (primary) hypertension; K21.9 Gastro-esophageal reflux disease without esophagitis; E11.9 Type 2 diabetes mellitus without complications; D64.9 Anemia, unspecified; Z88.1 Allergy status to other antibiotic agents; Z88.5 Allergy status to narcotic agent; Z79.899 Other long term (current) drug therapy
CPT/HCPCS: 36415; 74177; 80053; 83690; 83735; 84484; 85025; 85379; 93005; 96365; 96375; 99284; A9270; J1170; J2270; J2405; J3475; J7040; Q9967

== ENCOUNTER 2020-10-19 19:43 | Emergency (ER) | payer MEDICARE ==
[2020-10-19] MEDS ORDERED: Sodium Chloride 0.9% 10 ML Syringe FLUSH PRN (19:54)
[2020-10-19 20:02] VITALS: BP 153/88; PULSE 96
[2020-10-19] MEDS ORDERED: Morphine 2 MG/ML SYRINGE IVPUSH ONE (20:11)
[2020-10-19] MEDS ORDERED: Ondansetron 4 MG/2 ML SDV IVPUSH ONE (20:18)
--- NOTE | 2020-10-19 21:35 | EDM.PDOC ---
ED HPI GENERAL MEDICAL PROBLEM - General Chief Complaint: Upper Extremity Injury/Pain Stated Complaint: RT SHOULDER INJURY Time Seen by Provider: 10/19/20 19:55 Source of Information: Reports: Patient History Limitations: Reports: No Limitations - History of Present Illness INITIAL COMMENTS - FREE TEXT/NARRATIVE: Patient presented to the ED because of rt shoulder pain. She apparently hold to a metal railing yesterday and since then her shoulder was hurting. She denies recent fall or trauma. She has a history of rt humeral fracture with chel placement many years ago. Right Shoulder Pain Score (Numeric/FACES): 10 - Related Data Allergies Allergy/AdvReac Type Severity Reaction Status Date / Time amitriptyline Allergy Cannot Verified 10/19/20 20:31 Remember codeine Allergy Cannot Verified 10/19/20 20:31 Remember tetracycline Allergy Cannot Verified 10/19/20 20:31 Remember Home Meds: Home Meds Benazepril [Lotensin] 40 mg PO BEDTIME 01/24/19 [History] Cholecalciferol (Vitamin D3) [Vitamin D3] 25 mcg PO DAILY 01/24/19 [History] Ibandronate Sodium 150 mg PO Q30D 01/24/19 [History] Montelukast Sodium 10 mg PO BEDTIME 01/24/19 [History] atorvaSTATin Calcium [Atorvastatin Calcium] 40 mg PO DAILY 01/24/19 [History] Multivitamins,Therapeutic [Thera] 1 tab PO DAILY 03/05/19 [History] Trolamine Salicylate/Aloe Vera [Aspercreme 10%] 0 gm TOP QID PRN tube 03/31/19 [Rx] Acetaminophen [Tylenol] 650 mg PO Q4H PRN 09/16/19 [History] Citalopram [Citalopram HBr] 40 mg PO DAILY 09/16/19 [History] Melatonin 3 mg PO BEDTIME PRN 09/16/19 [History] Pantoprazole [ProTONIX] 40 mg PO DAILY 09/16/19 [History] Ozempic 0.5 mg SUBCUT SA 09/17/19 [History] Ferrous Sulfate 325 mg PO TIDMEALS #0 09/19/19 [Rx] Magnesium Oxide [Magnesium] 400 mg PO BID 7 Days #14 tablet 03/28/20 [Rx] Sucralfate [Carafate] 1 gm PO QIDACANDBED #480 ml 10/11/20 [Rx] Ondansetron [Zofran ODT] 4 mg PO Q6H PRN #20 tab.dis 05/29/20 [Rx] Acetaminophen/HYDROcodone [[place] 325-5 MG] 1 tab PO Q4H PRN #10 tab 09/06/20 [Rx] Ondansetron [Zofran ODT] 4 mg PO Q4H PRN #5 tab.dis 09/06/20 [Rx] Past Medical History HEENT History: Reports: Impaired Vision Other HEENT History: GLASSES Cardiovascular History: Reports: High Cholesterol, Hypertension, SOB on Exertion Respiratory History: Reports: SOB Gastrointestinal History: Reports: Gastritis, GERD, Other (See Below) Other Gastrointestinal History: Lactose intolerant [employer] History: Reports: Musculoskeletal History: Reports: Back Pain, Chronic, Fracture Other Musculoskeletal History: R humerous fx, R hip, R shoulder Neurological History: Reports: CVA Psychiatric History: Reports: Anxiety, Depression Other Psychiatric History: MENTAL HEALTH ISSUES. Endocrine/Metabolic History: Reports: Diabetes, Type II Hematologic History: Reports: Anemia, Blood Transfusion(s) Dermatologic History: Reports: Other (See Below) Other Dermatologic History: RASH AND C\O OF SOME ITCHING AT TIMES WITH A RASH. - Infectious Disease History Infectious Disease History: Reports: Chicken Pox, Shingles - Past Surgical History Head Surgeries/Procedures: Reports: Other (See Below) HEENT Surgical History: Reports: None Cardiovascular Surgical History: Reports: None Respiratory Surgical History: Reports: None GI Surgical History: Reports: Colonoscopy Endocrine Surgical History: Reports: None Neurological Surgical History: Reports: Other (See Below) Other Neurological Surgeries/Procedures: PT HAD SURGERY ON RIGHT SIDE OF FACE IN FRONT OF HER EAR IN PAST. Musculoskeletal Surgical History: Reports: Hip Replacement, Shoulder Surgery, Other (See Below) Other Musculoskeletal Surgeries/Procedures:: FRACTURED HUMERUS CURRENTLY AND S\P RIGHT HIP REPLACEMENT ON 02/28/2019 ON HIP Dermatological Surgical History: Reports: None - Past Imaging History Past Imaging History: Reports: Cardiac Echo (10/04/2018) Social & Family History - Family History Family Medical History: No Pertinent Family History Cardiac: Reports: CAD, [place] Other OBGYN Family History: Breast cancer: Paternal aunt Neurological: Reports: CVA Psychiatric: Reports: Other (See Below) - Tobacco Use Tobacco Use Status *Q: Never Tobacco User - Caffeine Use Caffeine Use: Reports: None Caffeine Use Comment: states that she only drinks diet coke once a week. - Recreational Drug Use Recreational Drug Use: No - Living Situation & Occupation Living situation: Reports: Alone Occupation: Retired Review of Systems - Review of Systems Review Of Systems: See Below Constitutional: Reports: No Symptoms Ears: Reports: No Symptoms Nose: Reports: No Symptoms Mouth/Throat: Reports: No Symptoms Respiratory: Reports: No Symptoms Cardiovascular: Reports: No Symptoms GI/Abdominal: Reports: No Symptoms Genitourinary: Reports: No Symptoms Musculoskeletal: Reports: Shoulder Pain, Arm Pain, Other Skin: Reports: No Symptoms Neurological: Reports: No Symptoms ED EXAM, GENERAL - Physical Exam Exam: See Below Exam Limited By: No Limitations General Appearance: Alert, No Apparent Distress Eye Exam: Bilateral Eye: PERRL Nose: Normal Inspection, Normal Mucosa, No Blood Throat/Mouth: Normal Inspection, Normal Lips Head: Atraumatic, Normocephalic Neck: Normal Inspection, Supple, Non-Tender, Full Range of Motion Respiratory/Chest: No Respiratory Distress, Lungs Clear, Normal Breath Sounds, No Accessory Muscle Use, Chest Non-Tender Cardiovascular: Normal Peripheral Pulses, Regular Rate, Rhythm, No Edema, No Gallop, No JVD, No Murmur, No Rub GI/Abdominal: Normal Bowel Sounds, Soft, Non-Tender, No Organomegaly Back Exam: Normal Inspection Extremities: Normal Inspection, Other (tenderness rt shoulder) Neurological: Alert, Oriented, CN II-XII Intact Course - Vital Signs Text/Narrative:: Xray rt shoulder-negative Morphine 2 mg IV x1 Last Recorded V/S: Last Vital Signs Temp 36.8 C 10/19/20 19:55 Pulse 96 10/19/20 19:55 Resp 18 10/19/20 19:55 BP 153/88 H 10/19/20 19:55 Pulse Ox 99 10/19/20 19:55 - Orders/Labs/Meds Orders: Active Orders 24 hr Category Date Time Status Shoulder Comp Rt [CR] Stat Exams 10/19/20 19:54 Taken Sodium Chloride 0.9% [Saline Flush] Med 10/19/20 19:54 Active 10 ml FLUSH ASDIRECTED PRN Saline Lock Insert [OM.PC] Routine Oth 10/19/20 19:54 Ordered Medication Orders Sodium Chloride (Sodium Chloride 0.9% 10 Ml Syringe) 10 ml FLUSH ASDIRECTED PRN PRN Reason: Keep Vein Open Last Admin: 10/19/20 20:15 Dose: 10 ml Documented by: DOLORES Mobley: Medications Generic Name Dose Route Start Last Admin Trade Name Lashonda PRN Reason Stop Dose Admin Sodium Chloride 10 ml 10/19/20 19:54 10/19/20 20:15 Sodium Chloride 0.9% 10 Ml Syringe FLUSH 10 ml ASDIRECTED PRN Administration Keep Vein Open Discontinued Medications Generic Name Dose Route Start Last Admin Trade Name Lashonda PRN Reason Stop Dose Admin Morphine Sulfate 2 mg 10/19/20 20:11 10/19/20 20:14 Morphine 2 Mg/Ml Syringe IVPUSH 10/19/20 20:12 2 mg ONETIME ONE Administration Ondansetron HCl 4 mg 10/19/20 20:18 10/19/20 20:21 Ondansetron 4 Mg/2 Ml Sdv IVPUSH 10/19/20 20:19 4 mg ONETIME ONE Administration Departure - Departure Time of Disposition: 21:55 Disposition: Home, Self-Care 01 Condition: Good Clinical Impression: Shoulder sprain, Sprain of right shoulder - Discharge Information Instructions: Shoulder Sprain Referrals: Светлана Mckay MD [Primary Care Provider] - Forms: ED Department Discharge Additional Instructions: Please read discharge instructions on shoulder sprain Apply ice Take tylenol 1000 mg every 8 hours as needed for pain Follow up as needed Sepsis Event Note (ED) - Evaluation Sepsis Screening Result: No Definite Risk - Focused Exam Vital Signs: Vital Signs Temp Pulse Resp BP Pulse Ox 10/19/20 19:55 36.8 C 96 18 153/88 H 99 - My Orders Last 24 Hours: My Active Orders 10/19/20 19:54 Shoulder Comp Rt [CR] Stat Sodium Chloride 0.9% [Saline Flush] 10 ml FLUSH ASDIRECTED PRN Saline Lock Insert [OM.PC] Routine - Assessment/Plan Last 24 Hours: My Active Orders 10/19/20 19:54 Shoulder Comp Rt [CR] Stat Sodium Chloride 0.9% [Saline Flush] 10 ml FLUSH ASDIRECTED PRN Saline Lock Insert [OM.PC] Routine
== END 2020-10-19 22:25 | disposition home or self-care (01) ==
LOC: FB.ED 19:43
DX: S43.401A Unspecified sprain of right shoulder joint, initial encounter (principal); E78.00 Pure hypercholesterolemia, unspecified; I10 Essential (primary) hypertension; K21.9 Gastro-esophageal reflux disease without esophagitis; E11.9 Type 2 diabetes mellitus without complications; Z88.5 Allergy status to narcotic agent; Z88.1 Allergy status to other antibiotic agents; Z79.899 Other long term (current) drug therapy; W31.1XXA Contact with metalworking machines, initial encounter
CPT/HCPCS: 73030-RT; 96374; 96375; 99283-25; J2270; J2405

== ENCOUNTER 2021-04-23 17:04 | Emergency (ER) | payer MEDICARE ==
[2021-04-23] MEDS ORDERED: Prochlorperazine 5 MG Tab PO ONE (17:05)
[2021-04-23] MEDS ORDERED: hydrOXYzine HCl 50 MG/ML SDV IM ONE (17:23)
--- NOTE | 2021-04-23 17:29 | EDM.PDOC ---
ED HPI GENERAL MEDICAL PROBLEM - General Stated Complaint: NOT FEELING Time Seen by Provider: 04/23/21 17:23 Source of Information: Reports: Patient History Limitations: Reports: No Limitations - History of Present Illness INITIAL COMMENTS - FREE TEXT/NARRATIVE: Kelly complains of long standing nausea,without vomiting. She has tried Zofran at home with no relief.She also complains of fatigue,also chronic,since she had COIVD-19 in 2019. She denies fever,chest pain or SOB.She is not a great historian. - Related Data Allergies Allergy/AdvReac Type Severity Reaction Status Date / Time amitriptyline Allergy Cannot Verified 10/19/20 20:31 Remember codeine Allergy Cannot Verified 10/19/20 20:31 Remember tetracycline Allergy Cannot Verified 10/19/20 20:31 Remember Home Meds: Home Meds Benazepril [Lotensin] 40 mg PO BEDTIME 01/24/19 [History] Cholecalciferol (Vitamin D3) [Vitamin D3] 25 mcg PO DAILY 01/24/19 [History] Ibandronate Sodium 150 mg PO Q30D 01/24/19 [History] Montelukast Sodium 10 mg PO BEDTIME 01/24/19 [History] atorvaSTATin Calcium [Atorvastatin Calcium] 40 mg PO DAILY 01/24/19 [History] Multivitamins,Therapeutic [Thera] 1 tab PO DAILY 03/05/19 [History] Trolamine Salicylate/Aloe Vera [Aspercreme 10%] 0 gm TOP QID PRN tube 03/31/19 [Rx] Acetaminophen [Tylenol] 650 mg PO Q4H PRN 09/16/19 [History] Citalopram [Citalopram HBr] 40 mg PO DAILY 09/16/19 [History] Melatonin 3 mg PO BEDTIME PRN 09/16/19 [History] Pantoprazole [ProTONIX] 40 mg PO DAILY 09/16/19 [History] Ozempic 0.5 mg SUBCUT SA 09/17/19 [History] Ferrous Sulfate 325 mg PO TIDMEALS #0 09/19/19 [Rx] Magnesium Oxide [Magnesium] 400 mg PO BID 7 Days #14 tablet 03/28/20 [Rx] Sucralfate [Carafate] 1 gm PO QIDACANDBED #480 ml 10/11/20 [Rx] Ondansetron [Zofran ODT] 4 mg PO Q6H PRN #20 tab.dis 05/29/20 [Rx] Acetaminophen/HYDROcodone [[place] 325-5 MG] 1 tab PO Q4H PRN #10 tab 09/06/20 [Rx] Ondansetron [Zofran ODT] 4 mg PO Q4H PRN #5 tab.dis 09/06/20 [Rx] Past Medical History HEENT History: Reports: Impaired Vision Other HEENT History: GLASSES Cardiovascular History: Reports: High Cholesterol, Hypertension, SOB on Exertion Respiratory History: Reports: SOB Gastrointestinal History: Reports: Gastritis, GERD, Other (See Below) Other Gastrointestinal History: Lactose intolerant [employer] History: Reports: Musculoskeletal History: Reports: Back Pain, Chronic, Fracture Other Musculoskeletal History: R humerous fx, R hip, R shoulder Neurological History: Reports: CVA Psychiatric History: Reports: Anxiety, Depression Other Psychiatric History: MENTAL HEALTH ISSUES. Endocrine/Metabolic History: Reports: Diabetes, Type II Hematologic History: Reports: Anemia, Blood Transfusion(s) Dermatologic History: Reports: Other (See Below) Other Dermatologic History: RASH AND C\O OF SOME ITCHING AT TIMES WITH A RASH. - Infectious Disease History Infectious Disease History: Reports: Chicken Pox, Shingles - Past Surgical History Head Surgeries/Procedures: Reports: Other (See Below) HEENT Surgical History: Reports: None Cardiovascular Surgical History: Reports: None Respiratory Surgical History: Reports: None GI Surgical History: Reports: Colonoscopy Endocrine Surgical History: Reports: None Neurological Surgical History: Reports: Other (See Below) Other Neurological Surgeries/Procedures: PT HAD SURGERY ON RIGHT SIDE OF FACE IN FRONT OF HER EAR IN PAST. Musculoskeletal Surgical History: Reports: Hip Replacement, Shoulder Surgery, Other (See Below) Other Musculoskeletal Surgeries/Procedures:: FRACTURED HUMERUS CURRENTLY AND S\P RIGHT HIP REPLACEMENT ON 02/28/2019 ON HIP Dermatological Surgical History: Reports: None - Past Imaging History Past Imaging History: Reports: Cardiac Echo (10/04/2018) Social & Family History - Family History Family Medical History: No Pertinent Family History Cardiac: Reports: CAD, [place] Other OBGYN Family History: Breast cancer: Paternal aunt Neurological: Reports: CVA Psychiatric: Reports: Other (See Below) - Caffeine Use Caffeine Use: Reports: None Caffeine Use Comment: states that she only drinks diet coke once a week. - Living Situation & Occupation Living situation: Reports: Alone Occupation: Retired ED ROS GENERAL - Review of Systems Review Of Systems: Comprehensive ROS is negative, except as noted in HPI. ED EXAM, GI/ABD - Physical Exam Exam: See Below Exam Limited By: No Limitations General Appearance: Alert, WD/WN, No Apparent Distress Ears: Normal External Exam Nose: Normal Inspection Throat/Mouth: Normal Inspection Head: Atraumatic Respiratory/Chest: No Respiratory Distress, Lungs Clear Cardiovascular: Normal Peripheral Pulses GI/Abdominal Exam: Soft Course - Vital Signs Last Recorded V/S: Last Vital Signs Temp 97.2 F 04/23/21 17:04 Pulse 114 H 04/23/21 17:04 Resp 18 04/23/21 17:04 BP 193/108 H 04/23/21 17:04 Pulse Ox 98 04/23/21 17:04 - Orders/Labs/Meds Orders: Active Orders 24 hr Category Date Time Status CXR [Chest 2V] [CR] Stat Exams 04/23/21 18:16 Taken UA W/MICROSCOPIC [URIN] Stat Lab 04/23/21 18:45 Received Labs: Laboratory Tests 04/23/21 04/23/21 04/23/21 Range/Units 17:33 17:33 17:33 WBC 15.1 H (3.0-10.3) x10-3/uL RBC 3.93 (3.60-5.20) x10(6)uL Hgb 9.5 L (11.4-15.5) g/dL Hct 29.7 L (34.2-48.2) % MCV 75.6 L (76.7-100.5) fL MCH 24.1 (23.9-33.9) pg MCHC 31.9 (31.9-34.8) g/dL RDW 15.1 (12.3-16.5) % Plt Count 331 (151-488) x10(3)uL MPV 7.4 (7.1-12.4) fL Add Manual Diff Yes Neutrophils % (Manual) 79 (46-82) % Band Neutrophils % 2 (0-6) % Lymphocytes % (Manual) 13 (13-37) % Monocytes % (Manual) 5 (4-12) % Eosinophils % (Manual) 1 (0-5) % Sodium 130 L (135-145) mmol/L Potassium 3.8 (3.5-5.3) mmol/L Chloride 92 L (100-110) mmol/L Carbon Dioxide 29 (21-32) mmol/L BUN 12 (7-18) mg/dL Creatinine 1.1 H (0.55-1.02) mg/dL Est Cr Clr Drug Dosing TNP Estimated GFR (MDRD) 48 L (>60) BUN/Creatinine Ratio 10.9 (9-20) Glucose 157 H (80-116) mg/dL Calcium 8.9 (8.6-10.2) mg/dL Total Bilirubin 0.5 (0.1-1.3) mg/dL AST 17 (5-25) IU/L ALT 35 D (12-36) U/L Alkaline Phosphatase 80 (56-112) IU/L Troponin I 13.7 (4.0-60.3) pg/mL C-Reactive Protein < 0.2 L (0.5-0.9) mg/dL Total Protein 7.0 (6.0-8.0) g/dL Albumin 3.8 (3.2-4.6) g/dL Globulin 3.2 g/dL Albumin/Globulin Ratio 1.2 Meds: Medications Discontinued Medications Generic Name Dose Route Start Last Admin Trade Name Davidq PRN Reason Stop Dose Admin Hydroxyzine HCl 50 mg 04/23/21 17:23 04/23/21 17:28 Hydroxyzine Hcl 50 Mg/Ml Sdv IM 04/23/21 17:24 50 mg ONETIME ONE Administration Metoclopramide HCl 10 mg 04/23/21 17:51 04/23/21 17:56 Metoclopramide 10 Mg/2 Ml Sdv IM 04/23/21 17:52 10 mg ONETIME ONE Administration Departure - Departure Time of Disposition: 19:03 Disposition: Home, Self-Care 01 Clinical Impression: Nausea - Discharge Information Sepsis Event Note (ED) - Focused Exam Vital Signs: Vital Signs Temp Pulse Resp BP Pulse Ox 04/23/21 17:04 97.2 F 114 H 18 193/108 H 98 - Problem List & Annotations (1) Anxiety SNOMED Code(s): 58303668 Code(s): F41.9 - ANXIETY DISORDER, UNSPECIFIED Status: Acute Current Visit: No (2) Nausea SNOMED Code(s): 910415294 Code(s): R11.0 - NAUSEA Status: Acute Current Visit: No (3) Hypertension SNOMED Code(s): 30804897 Code(s): I10 - ESSENTIAL (PRIMARY) HYPERTENSION Status: Chronic Current Visit: No Qualifiers: Hypertension type: primary hypertension Qualified Code(s): I10 - Essential (primary) hypertension (4) Leukocytosis (leucocytosis) SNOMED Code(s): 456529099, 318336138 Code(s): D72.829 - ELEVATED WHITE BLOOD CELL COUNT, UNSPECIFIED Status: Acute Current Visit: Yes Qualifiers: Leukocytosis type: unspecified Qualified Code(s): D72.829 - Elevated white blood cell count, unspecified (5) Anemia SNOMED Code(s): 441207440 Code(s): D64.9 - ANEMIA, UNSPECIFIED Status: Acute Current Visit: Yes - Problem List Review Problem List Initiated/Reviewed/Updated: Yes - My Orders Last 24 Hours: My Active Orders 04/23/21 18:16 CXR [Chest 2V] [CR] Stat 04/23/21 18:45 UA W/MICROSCOPIC [URIN] Stat - Assessment/Plan Last 24 Hours: My Active Orders 04/23/21 18:16 CXR [Chest 2V] [CR] Stat 04/23/21 18:45 UA W/MICROSCOPIC [URIN] Stat Plan: Nausea could be caused by Ozempic,or peptic ulcer/non ulcer. I gave her 50 mg of Vistaril and 10 mg Reglan.[place] a little bit better.DC home. I will send some Promethazine or Compazine along with her.See Dr Mckay on Sunday.
[2021-04-23] MEDS ORDERED: Metoclopramide 10 MG/2 ML SDV IM ONE (17:51)
[2021-04-23 19:28] VITALS: BP 154/96; PULSE 85
== END 2021-04-23 19:20 | disposition home or self-care (01) ==
LOC: FB.ED 17:04
DX: R11.0 Nausea (principal); E78.00 Pure hypercholesterolemia, unspecified; I10 Essential (primary) hypertension; K21.9 Gastro-esophageal reflux disease without esophagitis; E11.9 Type 2 diabetes mellitus without complications; Z86.73 Personal history of transient ischemic attack (TIA), and cerebral infarction without residual deficits; Z88.1 Allergy status to other antibiotic agents; Z88.5 Allergy status to narcotic agent; Z88.8 Allergy status to other drugs, medicaments and biological substances; Z79.899 Other long term (current) drug therapy
CPT/HCPCS: 36415; 71046; 80053; 81001; 84484; 85025; 86140; 96372; 99283; J2765; J3410; Q0164

== ENCOUNTER 2021-11-04 07:53 | Emergency (ER) | payer MEDICARE ==
[2021-11-04 09:31] VITALS: BP 159/93; PULSE 90
== END 2021-11-04 09:51 | disposition home or self-care (01) ==
LOC: FB.ED 07:53
DX: S01.81XA Laceration without foreign body of other part of head, initial encounter (principal); E78.00 Pure hypercholesterolemia, unspecified; I10 Essential (primary) hypertension; K21.9 Gastro-esophageal reflux disease without esophagitis; E11.9 Type 2 diabetes mellitus without complications; Z86.73 Personal history of transient ischemic attack (TIA), and cerebral infarction without residual deficits; Z88.5 Allergy status to narcotic agent; Z88.1 Allergy status to other antibiotic agents; Z88.8 Allergy status to other drugs, medicaments and biological substances; Z79.899 Other long term (current) drug therapy; W01.198A Fall on same level from slipping, tripping and stumbling with subsequent striking against other object, initial encounter
CPT/HCPCS: 12002; 70450; 99281; 99283-25

== ENCOUNTER 2021-11-26 16:30 | Observation (INO) | payer MEDICARE ==
[2021-11-26 17:20] LABS: ESTIMATED GFR 53 (>60)
[2021-11-26] MEDS ORDERED: Metoprolol Tartrate 50 MG Tab PO STA (17:38)
[2021-11-26] MEDS ORDERED: Acetaminophen 500 MG Tab PO STA (17:43)
[2021-11-26] MEDS ORDERED: Ondansetron 4 MG/2 ML SDV IV PRN (19:01)
[2021-11-26] MEDS ORDERED: Labetalol 20 MG/4 ML Syringe IVPUSH STA (19:12)
[2021-11-26] MEDS ORDERED: Melatonin 3 MG Tab PO PRN (19:13)
[2021-11-26] MEDS ORDERED: Sodium Chloride 0.9% 10 ML Syringe FLUSH PRN (19:51)
[2021-11-26] MEDS: Meclizine 25 MG Tab PO SCH (20:32)
[2021-11-26] MEDS ORDERED: busPIRone 10 MG Tab PO SCH (21:00)
[2021-11-26] MEDS ORDERED: Montelukast 10 MG Tab PO SCH (21:00)
[2021-11-26] MEDS ORDERED: Enoxaparin 40 MG/0.4 ML Syringe SUBCUT SCH (21:00)
[2021-11-26] MEDS: busPIRone 5 MG Tab PO SCH (21:59)
[2021-11-26] MEDS ORDERED: Benazepril 10 MG Tab PO SCH (22:00)
[2021-11-27] MEDS: Acetaminophen 325 MG Tab PO PRN ×3 (01:32→12:25)
[2021-11-27] MEDS: Meclizine 25 MG Tab PO SCH ×3 (01:33→12:25)
[2021-11-27 06:58] LABS: ESTIMATED GFR > 60 (>60)
[2021-11-27] MEDS ORDERED: metFORMIN 500 MG Tab PO SCH (08:00)
[2021-11-27] MEDS ORDERED: Cholecalciferol (Vitamin D3) 25 MCG Tab PO SCH (09:00)
[2021-11-27] MEDS ORDERED: busPIRone 5 MG Tab PO SCH (09:00)
[2021-11-27] MEDS ORDERED: atorvaSTATin 40 MG Tab PO SCH (09:00)
[2021-11-27] MEDS ORDERED: Multivitamin Tab PO SCH (09:00)
[2021-11-27] MEDS ORDERED: Iron Polysaccharides Complex 150 MG Cap PO SCH (09:00)
[2021-11-27] MEDS ORDERED: Citalopram 20 MG Tab PO SCH (09:00)
[2021-11-27] MEDS ORDERED: buPROPion 150 MG Tab.ER PO SCH (09:00)
[2021-11-27] MEDS ORDERED: Pantoprazole 40 MG Tab.CR PO SCH (09:00)
[2021-11-27] MEDS: busPIRone 5 MG Tab PO SCH ×2 (09:44→14:11)
[2021-11-27] MEDS ORDERED: SEMAGLUTIDE 0.5 MG/0.5 ML SUBCUT SCH (10:00)
[2021-11-27] MEDS ORDERED: traMADol 50 MG Tab PO PRN (11:00)
[2021-11-27 12:19] VITALS: BP 147/88; PULSE 78
[2021-11-27] MEDS ORDERED: Benazepril 10 MG Tab PO SCH (21:00)
== END 2021-11-27 13:40 | disposition home or self-care (01) ==
LOC: FB.ED 16:30 → FB.MS 19:02
PROVIDERS: ADMIT Student in an Organized Health Care Education/Training Program; ATTEND Student in an Organized Health Care Education/Training Program
DX: S09.90XA Unspecified injury of head, initial encounter (principal); D64.9 Anemia, unspecified; F41.9 Anxiety disorder, unspecified; F32.A Depression, unspecified; E11.9 Type 2 diabetes mellitus without complications; I10 Essential (primary) hypertension; R42 Dizziness and giddiness; E78.00 Pure hypercholesterolemia, unspecified; H54.7 Unspecified visual loss; Z96.611 Presence of right artificial shoulder joint; Z88.5 Allergy status to narcotic agent; Z88.8 Allergy status to other drugs, medicaments and biological substances; Z88.1 Allergy status to other antibiotic agents; Z79.899 Other long term (current) drug therapy; Z79.84 Long term (current) use of oral hypoglycemic drugs; Z86.73 Personal history of transient ischemic attack (TIA), and cerebral infarction without residual deficits; W01.0XXA Fall on same level from slipping, tripping and stumbling without subsequent striking against object, initial encounter
CPT/HCPCS: 36415; 70450; 72125; 73060-RT; 80048; 80053; 81001; 83735; 84443; 84484; 85025; 85610; 85730; 93005; 93010; 96372; 96374; 99283; 99285-25; A9270-GY; G0378; J1650; J3490

== ENCOUNTER 2024-03-01 13:28 | Inpatient (IN) | payer MEDICARE ==
[2024-03-01] MEDS ORDERED: Naloxone 0.4 MG/ML SDV IVPUSH PRN ×2 (14:03→15:08)
[2024-03-01] MEDS: fentaNYL 100 MCG/2 ML SDV IVPUSH PRN (14:16)
[2024-03-01] MEDS: HYDROmorphone 2 MG/ML SDV IVPUSH ONE (15:24)
[2024-03-01 17:12] LABS: HEMATOCRIT 32.2 % (34.2-48.2); HEMOGLOBIN 10.5 g/dL (11.4-15.5); MEAN CORPUSCULAR HEMOGLOBIN 26.8 pg (23.9-33.9); MEAN CORPUSCULAR HGB CONC 32.6 g/dL (31.9-34.8); MEAN CORPUSCULAR VOLUME 82.2 fL (76.7-100.5); MEAN PLATELET VOLUME 8.3 fL (7.1-12.4); PLATELET COUNT,PLT 262 x10(3)uL (151-488); RED BLOOD CELL COUNT 3.91 x10(6)uL (3.60-5.20); RED CELL DISTRIBUTION WIDTH 15.2 % (12.3-16.5); WHITE BLOOD CELL COUNT,WBC 14.9 x10-3/uL (3.0-10.3)
[2024-03-01 17:16] LABS: BLOOD UREA NITROGEN,BUN 19 mg/dL (7-18); BUN/CREATININE RATIO 21.1 (9-20); CALCIUM 8.7 mg/dL (8.6-10.2); CARBON DIOXIDE,CO2 26 mmol/L (21-32); CHLORIDE,CL 102 mmol/L (100-110); CREATININE 0.9 mg/dL (0.55-1.02); EST CRCL DRUG DOSING (CG) 36.99 mL/min; ESTIMATED GFR 64 mL/min (>60); GLUCOSE RANDOM 147 mg/dL (80-116); POTASSIUM,K 3.8 mmol/L (3.5-5.3); SODIUM,NA 139 mmol/L (135-145)
[2024-03-01 17:27] LABS: LYMPHOCYTES PERCENT MAN 12 % (13-37); MONOCYTES PERCENT MAN 6 % (4-12); SEG NEUTROPHILS PERCENT MAN 82 % (46-82)
[2024-03-01 17:28] LABS: POIKILOCYTOSIS FEW
[2024-03-02] MEDS: Ferrous Sulfate 325 MG Tab PO SCH (08:53)
[2024-03-02] MEDS: atorvaSTATin 40 MG Tab PO SCH (08:53)
[2024-03-02] MEDS: Pantoprazole 40 MG Tab.CR PO SCH (08:53)
[2024-03-02] MEDS: Magnesium Oxide 400 MG Tab PO SCH (08:53)
[2024-03-02] MEDS: Cholecalciferol (Vitamin D3) 25 MCG Tab PO SCH (08:53)
[2024-03-02] MEDS: oxyCODONE 5 MG Tab PO PRN (08:53)
[2024-03-02] MEDS: Citalopram 20 MG Tab PO SCH (08:53)
[2024-03-02] MEDS: Multivitamins with Iron/Calcium/Folic Acid/Minerals Tab PO SCH (08:53)
[2024-03-02] MEDS: Enoxaparin 40 MG/0.4 ML Syringe SUBCUT SCH (08:54)
[2024-03-02] MEDS: busPIRone 10 MG Tab PO SCH (09:10)
[2024-03-02] MEDS: metFORMIN 500 MG Tab PO SCH (13:36)
[2024-03-02 15:40] LABS: APPEARANCE,URINE SLIGHTLY CLOUDY (CLEAR); BILIRUBIN,URINE NEGATIVE (NEGATIVE); COLOR,URINE YELLOW (YELLOW); GLUCOSE,URINE 50 mg/dL (NORMAL); KETONES,URINE NEGATIVE (NEGATIVE); LEUKOCYTE ESTERASE,URINE SMALL (NEGATIVE); NITRITE,URINE NEGATIVE (NEGATIVE); OCCULT BLOOD,URINE NEGATIVE (NEGATIVE); PROTEIN,URINE NEGATIVE (NEGATIVE); SQUAMOUS EPITHELIAL CELLS,UR FEW (NS,R,O); UROBILINOGEN,URINE NORMAL (NEGATIVE)
[2024-03-02 15:41] LABS: BACTERIA,URINE MODERATE (NS)
[2024-03-02] MEDS: Montelukast 10 MG Tab PO SCH (21:32)
[2024-03-03 06:55] LABS: BASOPHILS PERCENT AUTO 0.4 % (0.2-1.5); EOSINOPHILS ABSOLUTE AUTO 0.2 x10-3/uL (0.0-0.8); HEMATOCRIT 29.6 % (34.2-48.2); HEMOGLOBIN 9.8 g/dL (11.4-15.5); LYMPHOCYTES ABSOLUTE AUTO 1.4 x10-3/uL (1.0-4.4); LYMPHOCYTES PERCENT AUTO 16.8 % (18.4-52.1); MEAN CORPUSCULAR HEMOGLOBIN 27.4 pg (23.9-33.9); MEAN CORPUSCULAR HGB CONC 33.1 g/dL (31.9-34.8); MEAN CORPUSCULAR VOLUME 82.9 fL (76.7-100.5); MEAN PLATELET VOLUME 8.3 fL (7.1-12.4); MONOCYTES ABSOLUTE AUTO 0.7 x10-3/uL (0.3-1.0); MONOCYTES PERCENT AUTO 8.7 % (4.4-15.7); NEUTROPHILS PERCENT AUTO 72.1 % (30.8-76.2); PLATELET COUNT,PLT 226 x10(3)uL (151-488); RED BLOOD CELL COUNT 3.57 x10(6)uL (3.60-5.20); RED CELL DISTRIBUTION WIDTH 15.6 % (12.3-16.5); WHITE BLOOD CELL COUNT,WBC 8.3 x10-3/uL (3.0-10.3)
[2024-03-03] MEDS ORDERED: diphenhydrAMINE 12.5 MG/5 ML Liquid 5 ML UD Cup PO PRN (09:04)
[2024-03-03] MEDS ORDERED: Hydrocortisone 1% Crm 30 GM Tube TOP PRN (09:05)
[2024-03-03] MEDS: Sulfamethoxazole/Trimethoprim 800-160 MG Tab PO SCH (09:12)
[2024-03-03] MEDS: amLODIPine 2.5 MG Tab PO SCH (10:41)
[2024-03-03] MEDS: buPROPion 150 MG Tab.ER PO SCH (10:41)
[2024-03-03] MEDS: Lisinopril 20 MG Tab PO SCH (10:41)
[2024-03-03] MEDS: metFORMIN 500 MG Tab PO SCH (18:08)
[2024-03-03] MEDS: Calcium Carbonate 500 MG Tablet PO SCH (21:19)
[2024-03-04] MEDS: Polyethylene Glycol 3350 Powder 17 GM Packet PO PRN (11:11)
[2024-03-04] MEDS: Menthol 10%/Methyl Salicylate 30% 85 GM Tube TOP PRN (11:12)
[2024-03-05] MEDS: Acetaminophen 500 MG Tab PO PRN (05:00)
[2024-03-05] MEDS: amLODIPine 2.5 MG Tab PO ONE (09:27)
[2024-03-05] MEDS: Amoxicillin/Clavulanate K 875-125 MG Tab PO SCH (09:27)
[2024-03-05] MEDS: FLU (Fluarix Triv) TS24-25(6MOS UP)/PF 45 MCG/0.5 ML Syringe IM ONE (10:36)
[2024-03-05] MEDS: Melatonin 3 MG Tab PO PRN (23:08)
[2024-03-06] MEDS: amLODIPine 5 MG Tab PO SCH (09:30)
[2024-03-07 11:11] VITALS: BP 140/80; PULSE 96
== END 2024-03-07 11:30 | disposition swing bed (61) | DRG 563 ==
LOC: FB.ED 13:28 → FB.MS 18:15 → OBSVTOIN 18:15
PROVIDERS: ADMIT Family Medicine; ATTEND Internal Medicine
DX: S42.124A Nondisplaced fracture of acromial process, right shoulder, initial encounter for closed fracture (principal); S51.011A Laceration without foreign body of right elbow, initial encounter; N39.0 Urinary tract infection, site not specified; S42.101A Fracture of unspecified part of scapula, right shoulder, initial encounter for closed fracture; S80.211A Abrasion, right knee, initial encounter; Z66 Do not resuscitate; Z86.16 Personal history of COVID-19; E78.00 Pure hypercholesterolemia, unspecified; I10 Essential (primary) hypertension; J40 Bronchitis, not specified as acute or chronic; K21.9 Gastro-esophageal reflux disease without esophagitis; F32.A Depression, unspecified; W19.XXXA Unspecified fall, initial encounter; Y92.009 Unspecified place in unspecified non-institutional (private) residence as the place of occurrence of the external cause; E11.9 Type 2 diabetes mellitus without complications; D64.9 Anemia, unspecified; G89.29 Other chronic pain; Z68.26 Body mass index [BMI] 26.0-26.9, adult; M54.9 Dorsalgia, unspecified; M54.2 Cervicalgia; E66.9 Obesity, unspecified; Z88.5 Allergy status to narcotic agent; Z88.1 Allergy status to other antibiotic agents; Z88.8 Allergy status to other drugs, medicaments and biological substances; Z79.84 Long term (current) use of oral hypoglycemic drugs; Z86.73 Personal history of transient ischemic attack (TIA), and cerebral infarction without residual deficits; Z79.899 Other long term (current) drug therapy; Z96.649 Presence of unspecified artificial hip joint; Z98.890 Other specified postprocedural states; Z87.891 Personal history of nicotine dependence; W18.2XXA Fall in (into) shower or empty bathtub, initial encounter
CPT/HCPCS: 36415; 73030; 73080; 80048; 85025; 96374; 96375; 99285; J1170; J3010; 72125; 73010-RT; 81001; 82947; 87086; 87088; 87186; 90656; 96376; 97110-GP; 97116-GP; 97161-GP; 97165-GO; 97530-GO; 97530-GP; 97535-GO; 99222; 99232; 99238; A9270-GY; G0008; G0378; J1650

== ENCOUNTER 2024-03-07 11:56 | Inpatient (IN) | payer MEDICARE ==
[2024-03-07] MEDS: busPIRone 10 MG Tab PO SCH (14:25)
[2024-03-07] MEDS: metFORMIN 500 MG Tab PO SCH (17:28)
[2024-03-07] MEDS: oxyCODONE 5 MG Tab PO PRN (19:42)
[2024-03-07] MEDS: Montelukast 10 MG Tab PO SCH (20:27)
[2024-03-07] MEDS: Amoxicillin/Clavulanate K 875-125 MG Tab PO SCH (20:27)
[2024-03-07] MEDS: Gabapentin 100 MG Cap PO SCH (20:27)
[2024-03-07] MEDS: Calcium Carbonate 500 MG Tablet PO SCH (20:27)
[2024-03-07] MEDS: Ascorbic Acid 500 MG Tab PO SCH (20:27)
[2024-03-08] MEDS: Pantoprazole 40 MG Tab.CR PO SCH (08:24)
[2024-03-08] MEDS: Cholecalciferol (Vitamin D3) 25 MCG Tab PO SCH (09:23)
[2024-03-08] MEDS: Multivitamins with Iron/Calcium/Folic Acid/Minerals Tab PO SCH (09:23)
[2024-03-08] MEDS: buPROPion 150 MG Tab.ER PO SCH (09:23)
[2024-03-08] MEDS: Lisinopril 20 MG Tab PO SCH (09:23)
[2024-03-08] MEDS: amLODIPine 5 MG Tab PO SCH (09:28)
[2024-03-08] MEDS: atorvaSTATin 40 MG Tab PO SCH (09:28)
[2024-03-08] MEDS: Citalopram 20 MG Tab PO SCH (09:28)
[2024-03-08] MEDS: Menthol 10%/Methyl Salicylate 30% 85 GM Tube TOP PRN (10:41)
[2024-03-10] MEDS: Acetaminophen 325 MG Tab PO PRN (13:14)
[2024-03-10] MEDS: diphenhydrAMINE 25 MG Cap PO PRN (15:03)
[2024-03-11] MEDS: diphenhydrAMINE/Zinc Acetate 2% Crm 28.4 GM Tube TOP PRN (14:29)
[2024-03-13] MEDS: Melatonin 3 MG Tab PO PRN (23:50)
[2024-03-16] MEDS: SEMAGLUTIDE 2 MG/3 ML SUBCUT SCH (17:03)
[2024-03-17] MEDS: Ondansetron 4 MG Tab.DIS PO PRN (10:49)
[2024-03-17] MEDS: Polyethylene Glycol 3350 Powder 17 GM Packet PO PRN (13:30)
[2024-03-18] MEDS: Citalopram 10 MG Tab PO SCH (08:23)
[2024-03-18] MEDS: Acetaminophen 500 MG Tab PO SCH (16:07)
[2024-03-19] MEDS: Bisacodyl 5 MG Tab PO PRN (14:33)
[2024-03-20 11:33] VITALS: BP 157/83; PULSE 104
== END 2024-03-20 10:36 | DRG 560 ==
LOC: FB.MS 11:56
PROVIDERS: ADMIT Internal Medicine; ATTEND Family Medicine
DX: S42.124D Nondisplaced fracture of acromial process, right shoulder, subsequent encounter for fracture with routine healing (principal); N30.00 Acute cystitis without hematuria; R53.81 Other malaise; W19.XXXA Unspecified fall, initial encounter; I10 Essential (primary) hypertension; H54.7 Unspecified visual loss; E78.00 Pure hypercholesterolemia, unspecified; K21.9 Gastro-esophageal reflux disease without esophagitis; F41.9 Anxiety disorder, unspecified; F32.A Depression, unspecified; Z96.649 Presence of unspecified artificial hip joint; E11.9 Type 2 diabetes mellitus without complications; Z88.5 Allergy status to narcotic agent; Z88.8 Allergy status to other drugs, medicaments and biological substances; Z79.899 Other long term (current) drug therapy; Z79.84 Long term (current) use of oral hypoglycemic drugs; Z79.2 Long term (current) use of antibiotics; Z79.52 Long term (current) use of systemic steroids; Z86.73 Personal history of transient ischemic attack (TIA), and cerebral infarction without residual deficits; Z98.890 Other specified postprocedural states
CPT/HCPCS: 82947; 97110-GP; 97112-GP; 97116-GP; 97140-GP; 97530-GO; 97530-GP; 97535-GO; 99304; 99307; 99315; A9270-GY; Q0162; U0002

== ENCOUNTER 2024-09-21 12:44 | Emergency (ER) | payer MEDICARE, MEDICAID ==
[2024-09-21] MEDS: fentaNYL 100 MCG/2 ML SDV IM ONE ×2 (13:28→14:32)
[2024-09-21 14:53] VITALS: BP 146/76; PULSE 86
== END 2024-09-21 15:37 ==
LOC: FB.ED 12:44
DX: S70.01XA Contusion of right hip, initial encounter (principal); I10 Essential (primary) hypertension; E78.00 Pure hypercholesterolemia, unspecified; E11.9 Type 2 diabetes mellitus without complications; K21.9 Gastro-esophageal reflux disease without esophagitis; Z88.8 Allergy status to other drugs, medicaments and biological substances; Z91.011 Allergy to milk products; Z79.899 Other long term (current) drug therapy; Z79.84 Long term (current) use of oral hypoglycemic drugs; W19.XXXA Unspecified fall, initial encounter
CPT/HCPCS: 73502-RT; 96372; 99283; J3010

== ENCOUNTER 2024-10-07 07:43 | Day surgery (SDC) | payer MEDICARE, MEDICAID ==
[2024-10-07] MEDS ORDERED: fentaNYL 100 MCG/2 ML SDV IV ONE (07:44)
[2024-10-07] MEDS ORDERED: Midazolam 1 MG/ML 2 ML SDV IV ONE (07:44)
[2024-10-07] MEDS ORDERED: Sodium Chloride 0.9% 10 ML Syringe FLUSH PRN (08:00)
[2024-10-07] MEDS: Lactated Ringers 1,000 ML IV PRN (08:39)
[2024-10-07] MEDS: acetaZOLAMIDE 500 MG Cap.ER PO ONE (10:17)
[2024-10-07 15:51] VITALS: BP 138/79; PULSE 87
== END 2024-10-07 11:17 ==
LOC: FB.SDS 07:43
PROVIDERS: ATTEND Ophthalmology
DX: E11.36 Type 2 diabetes mellitus with diabetic cataract (principal); H25.813 Combined forms of age-related cataract, bilateral; H21.81 Floppy iris syndrome; H43.813 Vitreous degeneration, bilateral; H11.153 Pinguecula, bilateral; H04.123 Dry eye syndrome of bilateral lacrimal glands; H35.033 Hypertensive retinopathy, bilateral; E11.59 Type 2 diabetes mellitus with other circulatory complications; I10 Essential (primary) hypertension; G47.33 Obstructive sleep apnea (adult) (pediatric); E78.2 Mixed hyperlipidemia; F32.4 Major depressive disorder, single episode, in partial remission; M81.0 Age-related osteoporosis without current pathological fracture; Z87.891 Personal history of nicotine dependence; Z79.84 Long term (current) use of oral hypoglycemic drugs; Z79.899 Other long term (current) drug therapy
CPT/HCPCS: 82947; A9270-GY; J2250; J3010; J7120; V2632

== ENCOUNTER 2024-10-22 03:28 | Emergency (ER) | payer MEDICARE, MEDICAID ==
[2024-10-22] MEDS: Ketorolac 30 MG/ML SDV IM ONE (03:55)
[2024-10-22 04:07] LABS: HEMATOCRIT 31.6 % (34.2-48.2); HEMOGLOBIN 10.6 g/dL (11.4-15.5); MEAN CORPUSCULAR HEMOGLOBIN 27.1 pg (23.9-33.9); MEAN CORPUSCULAR HGB CONC 33.6 g/dL (31.9-34.8); MEAN CORPUSCULAR VOLUME 80.5 fL (76.7-100.5); PLATELET COUNT,PLT 256 x10(3)uL (151-488); RED BLOOD CELL COUNT 3.92 x10(6)uL (3.60-5.20); RED CELL DISTRIBUTION WIDTH 15.1 % (12.3-16.5); WHITE BLOOD CELL COUNT,WBC 14.4 x10-3/uL (3.0-10.3)
[2024-10-22 04:09] LABS: BLOOD UREA NITROGEN,BUN 18 mg/dL (7-18); BUN/CREATININE RATIO 16.4 (9-20); CALCIUM 9.1 mg/dL (8.6-10.2); CARBON DIOXIDE,CO2 26 mmol/L (21-32); CHLORIDE,CL 97 mmol/L (100-110); CREATININE 1.1 mg/dL (0.55-1.02); EST CRCL DRUG DOSING (CG) 32.62 mL/min; ESTIMATED GFR 50 mL/min (>60); GLUCOSE RANDOM 191 mg/dL (80-116); SODIUM,NA 133 mmol/L (135-145)
[2024-10-22 04:15] LABS: A/G RATIO 1.1; ALANINE AMINOTRANSFERASE,ALT 32 U/L (12-36); ALBUMIN 3.7 g/dL (3.2-4.6); ALKALINE PHOSPHATASE 115 IU/L (56-112); ASPARTATE AMNIOTRANSFERASE,AST 18 IU/L (5-25); BILIRUBIN TOTAL 0.4 mg/dL (0.1-1.3); PROTEIN TOTAL,TP 7.1 g/dL (6.0-8.0)
[2024-10-22 04:23] LABS: LYMPHOCYTES PERCENT MAN 3 % (13-37); MONOCYTES PERCENT MAN 3 % (4-12); SEG NEUTROPHILS PERCENT MAN 94 % (46-82)
[2024-10-22 04:43] LABS: INFLUENZA A NAA NEGATIVE (NEGATIVE); INFLUENZA B NAA NEGATIVE (NEGATIVE); RESPIRATORY SYNCYTIAL VIR NAA NEGATIVE (NEGATIVE)
[2024-10-22 04:44] LABS: CORONAVIRUS COVID-19 NAA NEGATIVE (NEGATIVE)
[2024-10-22] MEDS: Azithromycin 500 MG Tab PO ONE (05:03)
[2024-10-22] MEDS: Benzonatate 100 MG Cap PO ONE (05:03)
[2024-10-22] MEDS: cefTRIAXone 1 GM Vial IM ONE (05:03)
[2024-10-22 05:28] VITALS: BP 127/79; PULSE 86
== END 2024-10-22 05:32 ==
LOC: FB.ED 03:28
DX: J20.9 Acute bronchitis, unspecified (principal); E83.42 Hypomagnesemia; I10 Essential (primary) hypertension; E78.00 Pure hypercholesterolemia, unspecified; K21.9 Gastro-esophageal reflux disease without esophagitis; E11.9 Type 2 diabetes mellitus without complications; Z86.73 Personal history of transient ischemic attack (TIA), and cerebral infarction without residual deficits; Z88.5 Allergy status to narcotic agent; Z88.8 Allergy status to other drugs, medicaments and biological substances; Z79.84 Long term (current) use of oral hypoglycemic drugs; Z79.899 Other long term (current) drug therapy
CPT/HCPCS: 0241U; 36415; 80053; 83735; 85025; 86140; 96372; 99285; A9270; J0696; J1885